=== PATIENT | female | born 1950 | race Caucasian/White ===

== ENCOUNTER → 2018-03-24 09:24 | Outpatient (CLI) | payer MEDICARE, OTHER, SELFPAY ==
--- NOTE | 2018-03-24 09:34 | XR_ITS ---
XR humerus LT CLINICAL INDICATION: ITS.REASON: SWELLING,MASS/LUMP LEFT UPPER LIMB ORDERING PHYSICIAN: Pavel Chapman MD PATIENT AGE: 67 years Comparison: None FINDINGS: No bony or joint abnormality. There is some lobulation of the subcutaneous tissues along the upper arm laterally possibly related to the area of clinical concern. No calcification is evident within this region. IMPRESSION: 1. Negative left humerus. 2. Lobulation of the soft tissues in the upper arm laterally etiology indeterminate incompletely evaluated with plain film. CT or MRI may be of further value if clinically warranted
--- NOTE | 2018-03-24 09:34 | XR_ITS ---
XR foot RT min 3V HISTORY: Right foot pain ORDERING PHYSICIAN: Pavel Chapman MD PATIENT AGE: 67 years COMPARISON: None FINDINGS: No fracture or dislocation. No lytic or blastic change. There is normal mineralization.. The joint spaces are well-preserved. No significant degenerative/arthritic changes. No erosive changes evident. There is mild soft tissue swelling overlying the lateral aspect of the fifth metatarsophalangeal joint IMPRESSION: Soft tissue swelling at the fifth metatarsophalangeal joint laterally otherwise negative
== END ==
PROVIDERS: PCP Family Medicine; Visit Provider Family Medicine
DX: M79.671 Pain in right foot (principal); R22.32 Localized swelling, mass and lump, left upper limb
CPT/HCPCS: 73060; 73630

== ENCOUNTER → 2018-04-21 07:47 | Outpatient (CLI) | payer MEDICARE, OTHER, SELFPAY ==
--- NOTE | 2018-04-21 07:51 | MR_ITS ---
MR shoulder LT wo con HISTORY:Soft tissue mass which is increasing in size ITS.REASON: SOFT TISSUE MASS ORDERING PHYSICIAN: Pavel Chapman MD PATIENT AGE: 67 years Comparison: 03/24/2019 TECHNIQUE: Standard multiplanar multiecho sequences are performed without contrast. FINDINGS: A marker is placed along the palpable soft tissue mass of the left shoulder. There is an oval area of fat signal intensity along the peripheral aspect of the deltoid muscle ( acromial part) consistent with a lipoma. This is well-circumscribed and is just deep to the placed marker. This measures up to 6 cm cephalad to caudad and 2.6 cm transverse. There is acromioclavicular arthropathy with subacromial stenosis with hypertrophic change along the inferior aspect of the acromium with subacromial stenosis. There is increased T2 signal of the supraspinatus tendon consistent with tendinopathy/tendinosis with suspected partial tear along the undersurface of the supraspinatus tendon. The infraspinatus tendon shows some mild increased T2 signal well. Nonspecific increased T2 signal present in the humeral head at the base of the greater tuberosity consistent with subarticular cystic changes which may be seen with rotator cuff disease. Small shoulder joint effusion. The subscapularis and teres minor tendons are intact. No obvious labral tear. Bicipital tendon is in place. IMPRESSION: 1. 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 Acromioclavicular arthropathy with subacromial stenosis and tendinopathy/tendinosis of the supraspinatus and infraspinatus tendons with small shoulder joint effusion and mild osteoarthritic changes of the glenohumeral joint.. 3. Possible partial tear along the undersurface of the supraspinatus tendon
== END ==
PROVIDERS: PCP Family Medicine; Visit Provider Family Medicine
DX: M25.512 Pain in left shoulder (principal); M79.9 Soft tissue disorder, unspecified
CPT/HCPCS: 73221

== ENCOUNTER → 2018-12-08 13:59 | Outpatient (CLI) | payer MEDICARE, OTHER, SELFPAY | PROVIDERS: PCP Family Medicine; Visit Provider Family Medicine | DX: I49.9 Cardiac arrhythmia, unspecified (principal) | CPT/HCPCS: 93225; 93226 ==

== ENCOUNTER → 2018-12-23 14:12 | Outpatient (CLI) | payer MEDICARE, OTHER, SELFPAY ==
--- NOTE | 2018-12-23 14:18 | US_ITS ---
ULTRASOUND THYROID HISTORY: Thyroid enlarged ULTRASOUND THYROID Patient feels like something stuck in throat. PROCEDURE: Multiple sagittal & transverse ultrasound images of the thyroid. COMPARISON. No previous studies for comparison ----- FINDINGS: Enlarged multinodular thyroid bilaterally.. Includes isthmus nodule. Decreased color Doppler flow noted ======== ISTHMUS: Thickened isthmus with large nodule This Large solid mixed density nodule measures 1.85 cm transverse x 1.65 cm AP.. Mainly Solid but with generous scattered cystic areas throughout. ======== RIGHT LOBE: ... 5.6 cm length x 3.6 cm x 3.2 cm. Nodule A: . Mixed density nodule upper pole measuring up to 1.5 cm.. Cystic areas throughout largest measuring up to 1.1 cm. . Nodule B: Nearly 2 cm nodule mainly solid midportion right lobe.. Calcified margin yields shadowing.. Difficult to evaluate posterior aspect of this nodule due to the pronounced shadowing posteriorly. . Nodule C:MixedDensity nodule measuring up to 1.9 x 1.6 cm AP.... Lower pole Multiple cystic areas with some measuring up to 6 mm Nodule D: Prominent solid nodule along posterior aspect mid right lobe. This measures up to 2.45 cm in length x 1.3 cm AP. LEFT LOBE:... 5.2 cm length as 3.2 cm wide to 3.5 cm AP Nodule A: Solid nodule upper left lobe measures 2.3 cm length x 1.85 cm x 1.1 cm. Solid nodule with scattered cystic areas throughout Nodule B: 1.5 cm length mixed density nodule. Multiple cystic areas most evident at its upper pole. *Nodule C:. 2.9 x 2.2 cm cm solid nodule posterior aspect upper pole left lobe. Nodule D: 1.1 cm ill-defined hypoechoic I believe solid nodule medial aspect of mid left lobe . *Nodule E: Elongated 2.7 x 1.4 cm solid nodule anterior mid left lobe Nodule F:... 2.1 cm x 1.7 cm mainly solid nodule. A few tiny cyst within it Nodule G. Solid nodule measuring 1.78 cm nodule at lower pole left lobe ....IMPRESSION....... 1. Enlarged multinodular thyroid/ goiter.. 2. Right lobe nodules. Larger nodules include: ... Nodule D measuring nearly 2.5 cm length midportion right lobe . Nodule B measuring approximately 2 cm with calcified margin yielding fairly intense shadowing 3. Left lobe. More numerous prominent nodules. Most notable include:. Nodule C: up to 2.9 cm length. Posterior left lobe Nodule E: elongated solid nodule 2.7 cm length at anterior midportion left lobe 4.. Isthmus. Large nodule nearly 1.9 cm.
== END ==
PROVIDERS: PCP Family Medicine; Visit Provider Family Medicine
DX: E04.9 Nontoxic goiter, unspecified (principal)
CPT/HCPCS: 76536

== ENCOUNTER → 2019-01-09 14:15 | Outpatient (CLI) | payer MEDICARE, OTHER, SELFPAY ==
[2019-01-09 16:54] LABS: Calcium 9.1 mg/dL (8.5-10.1); Free T4 (Free Thyroxine) 0.74 ng/dl (0.76-1.46); Thyroid Stimulating Hormone 2.05 uIU/ml (0.358-3.740)
[2019-01-11 14:42] LABS: Thyroid Peroxidase Antibodies 10 IU/mL (0-34)
[2019-01-12 18:20] LABS: Calcitonin <2.0 pg/mL (0.0-5.0); Thyroid Stimulating Immunoglob <0.10 IU/L (0.00-0.55)
== END ==
PROVIDERS: Visit Provider Otolaryngology
DX: E04.9 Nontoxic goiter, unspecified (principal)
CPT/HCPCS: 36415; 82308; 82310; 84439; 84443; 84445; 86376

== ENCOUNTER → 2019-01-19 08:43 | Outpatient (CLI) | payer MEDICARE, OTHER, SELFPAY ==
--- NOTE | 2019-01-19 08:47 | FL_ITS ---
EXAM: Barium swallow/esophagram. INDICATION: ITS.REASON: dysphagia ORDERING PHYSICIAN: Davonte Ling MD PATIENT AGE: 68 years COMPARISON: None TECHNIQUE: In the upright position the patient was observed to swallow barium in both the AP and lateral view. The cervical esophagus was examined under fluoroscopy with images obtained. The patient was then placed prone in the right anterior oblique position and was observed to swallow barium with Valsalva technique . FLUOROSCOPY TIME: 58 seconds FINDINGS: There was no evidence of aspiration. There was normal peristalsis. No filling defects or mucosal abnormalities. No masses or strictures. The esophagus is midline without evidence of external compression. There is a moderate-sized hiatal hernia which does not reduce during the course of the exam. In addition, there is a gastric diverticulum projecting off the posterior aspect of the stomach which is involved in the hernia. IMPRESSION: 1. Moderate-sized hiatal hernia. 2. Small posterior gastric diverticulum
--- NOTE | 2019-01-19 08:51 | US_ITS ---
US FNA Thyroid right US FNA Thyroid left HISTORY: Multinodular goiter abnormal thyroid ultrasound ITS.REASON: THYROID GOITER, dominant bilateral nodules ORDERING PHYSICIAN: Davonte Ling MD PATIENT AGE: 68 years COMPARISON: 12/23/2018 TECHNIQUE: Following obtaining informed consent, using aseptic technique and local anesthesia with buffered lidocaine, fine-needle aspiration was performed of the dominant the nodule on the right. 2 passes were made with a 21-gauge needle. Specimen was given to cytology. Cytology: Benign follicular nodule Following this, using sonographic guidance under aseptic conditions and local anesthesia with 1% buffered lidocaine, 21-gauge needle was inserted into the deep dominant solid nodule in the left and specimen given to cytology. Cytology: Benign follicular nodule. No immediate complications. The patient tolerated the procedure well without evidence of immediate complications and left the ultrasound suite in stable condition. IMPRESSION: Uneventful bilateral thyroid FNA of the dominant nodules both showing a cytology of benign follicular nodule.
== END ==
PROVIDERS: PCP Family Medicine; Visit Provider Otolaryngology
DX: R13.10 Dysphagia, unspecified (principal); E04.1 Nontoxic single thyroid nodule
CPT/HCPCS: 10005; 10006; 74220; 76942; 88173; 88305

== ENCOUNTER → 2019-02-10 09:40 | Outpatient (CLI) | payer MEDICARE, OTHER, SELFPAY ==
--- NOTE | 2019-02-10 09:43 | MM_ITS ---
MM Dig screening mamm BI w/CAD ORDERING PHYSICIAN : Pavel Chapman MD PATIENT AGE: 68 years GENDER: Female COMPARISON: March 2014 & October 2006 & Also April 2003t bilateral mammogram. Diagnostic right mammogram from September 2014 INDICATION: Routine screening mammogram. No hormones. No new complaints.. Previous cyst aspiration left breast Family history sister with breast cancer TECHNIQUE: Standard CC and MLO images were obtained. R2 CAD reviewed. FINDINGS: RIGHT BREAST: Bilobed nodule lateral central right breast is shown slight progression in size since. Age of these adjacent ovoid densities now measuring up to nearly 12 mm size. (These previously measured 10 mm mm on 2013 & 2014 mammogram.)- These are most likely benign cysts particularly in this patient with history of such but would suggest the patient return forcc spot view, & full 90 degrees view of right breast followed by right breast ultrasound-particularly with sibling sister history of breast cancer.. She is had left breast cyst on the prior 2002 and 2006 left mammogram studies apparently she is had Aspiration of a left breast in past as per provided history... LEFT BREAST: No new findings at the left breast. It appears stable. Follow-up in one year on left suggested IMPRESSION: ......... 1. RIGHT MAMMOGRAM. Slight interval enlargement of bilobed nodule right breast since previous studies-this is most likely benign bilobed cyst at lateral central breast . However since it has slightly increased in size since previous studies, I would suggest spot views and ultrasound as outlined in body of report 2. Left Mammogram.: No new findings follow-up in one year BI-RADS Category: 0 Need Additional Imaging Evaluation RECOMMENDED FOLLOW-UP: IMM - IMMEDIATE FOLLOW-UP RECOMMENDED Spot views and ultrasound right breast, as described in body of report (A letter has been sent to the patient regarding results of the study.)
== END ==
PROVIDERS: PCP Family Medicine; Visit Provider Family Medicine
DX: Z12.31 Encounter for screening mammogram for malignant neoplasm of breast (principal)
CPT/HCPCS: 77067

== ENCOUNTER → 2019-02-27 11:28 | Outpatient (CLI) | payer MEDICARE, OTHER, SELFPAY ==
--- NOTE | 2019-02-27 11:31 | CA_ITS ---
APPROVED REPORT Bilateral Lower Extremity Venous Study for DVT. Carpenter Apprentice: LISA Indications Lower Extremity Pain: Right Lower Extremity Edema: Bilateral Risk Factors Prior Phlebitis/DVT Past History DVT : Medications Coumadin Vein Imaging CFV (R): compressive, spontaneous, phasic, augmentation FEM (R): compressive, spontaneous, phasic, augmentation POP (R): compressive, spontaneous, phasic, augmentation PTV (R): Compressible GSV (R): Non-Compressible SSV (R): Non-Compressible Peroneals (R):Compressible GAS (R): Compressible Findings No evidence of DVTs in the veins scanned of the right lower extremity. Thrombus is seen in the distal GSV and distal lesser saphenous vein. Conclusion No evidence of DVTs in the veins scanned of the right lower extremity. Thrombus is seen in the distal GSV and distal lesser saphenous vein. Critical Notification Physician Notified Date: 02/27/2019 Time: 11:50 am Physician Name: Dr Kuhn Electronically signed by : Jason Duran MD 02/27/2019 13:06:12
== END ==
PROVIDERS: PCP Family Medicine; Visit Provider Family Medicine
DX: I82.4Z1 Acute embolism and thrombosis of unspecified deep veins of right distal lower extremity (principal)
CPT/HCPCS: 93971

== ENCOUNTER → 2019-03-07 14:16 | Outpatient (CLI) | payer MEDICARE, OTHER, SELFPAY ==
--- NOTE | 2019-03-07 14:18 | MM_ITS ---
PROCEDURE: MM DIG MAMM DX UNILAT RT CAD CLINICAL INDICATION: ABN MAMM The is early COMPARISON: DMSB DIG MAMM-SCREEN MATEUSZ from 03/22/2014 DMDB DIG MAMM-DX MATEUSZ from 09/18/2014 DIG MAMM-SCREEN MATEUSZ from 02/10/2019 US BREAST RT COMPLETE from 03/07/2019 TECHNIQUE: Spot compression views and right breast ultrasound FINDINGS: Right mammogram: There is a 1.9 by 1 cm by lobular benign appearing nodular lesion in the lower outer aspect of the right breast. This has been stable present dating back to 03/22/2014 the may be slightly larger. Right breast ultrasound: In the 8 o'clock region of the right breast there is a 1.8 by 1 cm by lobular cyst corresponding to the mammographic abnormality. Incidental note is made of a small hypoechoic nodule at 12 o'clock. This does contain some low level internal echoes and may represent a complex cyst. . IMPRESSION: Bilobular nodular density in the 8 o'clock region of the right breast corresponds to benign-appearing cyst. There is an indeterminate 6 mm hypoechoic nodule at 12 o'clock which may be due to a complex cyst. Recommend six-month sonographic follow-up BI-RAD Category: 3 Probably Benign Finding Short Term Follow-up FOLLOW-UP: 6M 6Month Follow-up (A letter has been sent to the patient regarding results of the study.) Dictated by: Jason uDran MD 03/10/2019 13:57 Electronically signed by Jason Duran MD in [facility] 03/10/2019 13:57
== END ==
PROVIDERS: PCP Family Medicine; Visit Provider Family Medicine
DX: R92.8 Other abnormal and inconclusive findings on diagnostic imaging of breast (principal)
CPT/HCPCS: 76641; 77065

== ENCOUNTER → 2019-04-26 09:11 | Outpatient (CLI) | payer MEDICARE, OTHER, SELFPAY ==
--- NOTE | 2019-04-26 09:13 | US_ITS ---
PROCEDURE: US THYROID CLINICAL INDICATION: Goiter Follow-up thyroid nodules, multinodular goiter COMPARISON: THY US thyroid from 12/23/2018 FNATHY US FNA Thyroid from 01/19/2019 FINDINGS: 19 mm hypoechoic nodule is present in the isthmus slightly toward the right unchanged with some central cystic changes. The right lobe is 5.2 x 2.9 x 4.4 cm. Multinodular goiter is once again noted. The largest nodule on the right is 19 x 20 mm and is not significantly changed. This nodule is hypoechoic with some calcification. Other smaller mostly cystic nodules are present. The left lobe is 6 x 3.7 x 3.9 cm. Multiple nodules are once again noted. The largest nodule is solid and is 3.6 x 2.1 cm within the lower pole and does not appear significantly changed IMPRESSION: No change multinodular goiter Dictated by: Jason Duran MD 04/26/2019 13:15 Electronically signed by Jason Duran MD in [facility] 04/26/2019 13:15
== END ==
PROVIDERS: PCP Family Medicine; Visit Provider Otolaryngology
DX: E04.9 Nontoxic goiter, unspecified (principal)
CPT/HCPCS: 76536

== ENCOUNTER → 2019-05-29 10:29 | Outpatient (POV) | payer MEDICARE, OTHER, SELFPAY ==
[2019-05-31 07:35] LABS: H. pylori Breath Test Negative (Negative)
== END ==
PROVIDERS: PCP Family Medicine; Visit Provider Nurse Practitioner Family
DX: D50.9 Iron deficiency anemia, unspecified (principal); B96.81 Helicobacter pylori [H. pylori] as the cause of diseases classified elsewhere
CPT/HCPCS: 83013

== ENCOUNTER → 2019-08-28 11:41 | Outpatient (CLI) | payer MEDICARE, OTHER, SELFPAY ==
[2019-08-28 12:07] LABS: Basophils # 0.1 K/mm3 (0-0.2); Basophils % 0.9 % (0.1-2.0); Eosinophils # 0.1 K/mm3 (0.0-0.4); Eosinophils % 1.9 % (0.1-12.0); Hematocrit 42.6 % (37.0-47.0); Hemoglobin 13.8 g/dL (12.2-16.2); Lymphocytes # 1.1 K/mm3 (0.7-4.5); Mean Corpuscular HGB Conc 32.4 g/dL (31.8-35.4); Mean Corpuscular Hemoglobin 29.4 pg (27.0-31.2); Mean Corpuscular Volume 90.5 fl (81-99); Monocytes # 0.3 K/mm3 (0.1-1.0); Monocytes % 5.8 % (1.7-9.3); Neutrophils # 4.3 K/mm3 (1.8-7.8); Neutrophils % 72.4 % (37.0-80.0); Platelet Count 258 K/mm3 (142-424); Red Blood Count 4.71 M/mm3 (4.20-5.40); Red Cell Distribution Width 13.4 % (11.5-17.5); White Blood Count 5.9 K/mm3 (4.8-10.8)
[2019-08-28 16:19] LABS: Ferritin 12.4 ng/ml (11.1-264)
[2019-08-29 10:19] LABS: Iron 105 ug/dL (27-139); UIBC 244 ug/dL (118-369)
[2019-08-29 11:51] LABS: Iron Saturation 30 % (15-55)
== END ==
PROVIDERS: Visit Provider Internal Medicine Gastroenterology
DX: D50.9 Iron deficiency anemia, unspecified (principal)
CPT/HCPCS: 36415; 82728; 83540; 83550; 85025

== ENCOUNTER → 2019-09-04 10:14 | Outpatient (POV) | payer MEDICARE, OTHER, SELFPAY | PROVIDERS: PCP Nurse Practitioner Family; Visit Provider Nurse Practitioner Family | DX: Z00.00 Encounter for general adult medical examination without abnormal findings (principal) ==

== ENCOUNTER → 2019-09-07 12:45 | Outpatient (CLI) | payer MEDICARE, OTHER, SELFPAY ==
--- NOTE | 2019-09-07 12:47 | MM_ITS ---
PROCEDURE: MM DIG MAMM DX UNILAT RT CAD Digital Breast Tomosynthesis Included CLINICAL INDICATION: 6 MO FU Follow-up abnormal mammogram and ultrasound COMPARISON: DMDB DIG MAMM-DX MATEUSZ from 09/18/2014 DIG MAMM-SCREEN MATEUSZ from 02/10/2019 US BREAST RT COMPLETE from 03/07/2019 MM DIG MAMM DX UNILAT RT CAD from 03/07/2019 US BREAST RT COMPLETE from 09/07/2019 TECHNIQUE: Standard CC and MLO images and 3D Tomosynthesis was obtained. R2 CAD reviewed. FINDINGS: There is average fibroglandular tissue. A bilobular 2 cm nodule is once again noted in the lower outer aspect of the right breast corresponding to previously noted cystic abnormality not significantly changed. Right breast ultrasound: Is a 5 mm hypoechoic nodule at 12 o'clock not significantly changed benign-appearing. A lobulated cyst is present at 8 o'clock measuring 2 x 0.5 cm not significantly changed. IMPRESSION: Benign findings. No change with no evidence of malignancy. Recommend resume screening mammogram in 6 months of both sides BI-RAD Category: 2 Benign Finding(s) FOLLOW-UP: 6M 6Month Follow-up (A letter has been sent to the patient regarding results of the study.) Dictated by: Jasno Duran MD 09/08/2019 12:58 Electronically signed by Jason Duran MD in [facility] 09/08/2019 12:58
== END ==
PROVIDERS: PCP Family Medicine; Visit Provider Family Medicine
DX: R92.8 Other abnormal and inconclusive findings on diagnostic imaging of breast (principal); Z09 Encounter for follow-up examination after completed treatment for conditions other than malignant neoplasm
CPT/HCPCS: 76641; 77061; 77065; G0279

== ENCOUNTER 2019-10-15 12:38 | Emergency (ER) | payer MEDICARE, OTHER, SELFPAY ==
[2019-10-15 12:39] VITALS: BP 142/72; PULSE 55; RESP 16; O2SAT 98; BMI 28.1
[2019-10-15 12:41] VITALS: BMI 28.1
--- NOTE | 2019-10-15 12:41 | XR_ITS ---
PROCEDURE: XR CHEST PORTABLE CLINICAL HISTORY: cp COMPARISON: CXR CHEST(2 VIEWS-NOT PORTABLE) from 07/20/2013 FINDINGS: The cardiomediastinal silhouette and pulmonary vascularity are within normal limits. Again noted is a large hiatal hernia with air-fluid level seen through the cardiac shadow. The lungs are clear without infiltrates, suspicious nodules, or pleural effusions. No acute bony abnormalities. IMPRESSION: No acute findings. Dictated by: Dr. Everton Damian MD 10/15/2019 13:[address] Everton Damian MD in [facility] 10/15/2019 13:34
--- NOTE | 2019-10-15 12:41 | CT_ITS ---
PROCEDURE: CT ANGIO CHEST CLINCIAL INDICATION: chest pain, hx pe COMPARISON: US THYROID from 04/26/2019 TECHNIQUE: IV Contrast: 70ML OPTIRAY 350 Axial images obtained with sagittal and coronal reformats. All CT scans at the facility use one or more dose reduction, viz: automated exposure control, ma/kV adjustment per patient size (including targeted exams where dose is matched to indication, i.e. head), or iterative reconstruction technique. FINDINGS: HEART AND MEDIASTINAL STRUCTURES: Cardiac size is normal. There is a large hiatal hernia with possibly 1/3 to 1/2 of the stomach above the diaphragmatic hiatus. There is excellent vascular opacification and there is no CT evidence of pulmonary emboli. LUNGS AND PLEURAL SPACES: Unremarkable. There is no pneumonic infiltrate seen and there is no pleural fluid. BONY STRUCTURES: There are mild multilevel degenerate changes of the thoracic spine. UPPER ABDOMEN: Unremarkable. ADDITIONAL FINDINGS: There is an enlarged multinodular thyroid goiter there is prominent calcification of a nodule in the right lobe of the thyroid. Suggest consideration of ENT consultation for possible biopsy of the calcified right thyroid nodule IMPRESSION: No evidence of pulmonary embolism, large hiatal hernia along with abnormally enlarged multinodular thyroid goiter Dictated by: Dr. Everton Damian MD 10/15/2019 13:[address] Everton Damian MD in [facility] 10/15/2019 13:43
[2019-10-15 12:51] LABS: Basophils # 0.1 K/mm3 (0-0.2); Basophils % 0.6 % (0.1-2.0); Eosinophils # 0.2 K/mm3 (0.0-0.4); Eosinophils % 1.7 % (0.1-12.0); Hematocrit 43.4 % (37.0-47.0); Hemoglobin 13.9 g/dL (12.2-16.2); Lymphocytes # 2.8 K/mm3 (0.7-4.5); Lymphocytes % 31.5 % (10-50); Mean Corpuscular Hemoglobin 29.6 pg (27.0-31.2); Mean Corpuscular Volume 92.3 fl (81-99); Mean Platelet Volume 8.1 fl (7.4-10.4); Monocytes # 0.5 K/mm3 (0.1-1.0); Monocytes % 5.3 % (1.7-9.3); Neutrophils # 5.5 K/mm3 (1.8-7.8); Neutrophils % 60.9 % (37.0-80.0); Platelet Count 289 K/mm3 (142-424); Red Cell Distribution Width 13.2 % (11.5-17.5)
[2019-10-15 12:56] LABS: Chloride 100 mmol/L (98-107); Sodium 137 mmol/L (136-145)
[2019-10-15 12:59] LABS: Alanine Aminotransferase 36 U/L (12-78); Albumin Level 4.1 g/dl (3.5-5.0); Alkaline Phosphatase 126 U/L (38-126); Aspartate Amino Transferase 97 U/L (14-36); Bilirubin,Indirect 0.4 mg/dL (0.0-0.9); Bilirubin,Total 0.4 mg/dl (0.2-1.3); Bilirubin,Unconjugated 0.4 mg/dL (0.0-1.1); Blood Urea Nitrogen 16 mg/dl (7-17); Calcium 9.4 mg/dl (8.4-10.2); Carbon Dioxide 31 mmol/L (22.0-30.0); Creatinine Clearance Estimated 67 mL/min (50-200); Estimated Glomerular Filt Rate 83 ml/min (>60); GFR (African American) 100 ML/MIN (>60); Glucose 144 mg/dl (74-100); Total Protein,Serum 6.7 g/dl (6.3-8.2)
--- NOTE | 2019-10-15 13:00 | CT_ITS ---
PROCEDURE: CT ABDOMEN PELVIS W CON CLINICAL INDICATION: RUQ pain, hx of hiatal hernia COMPARISON: No exams were available for comparison TECHNIQUE: IV Contrast: 75ML OPTIRAY 350 Oral Contrast none given Axial images obtained with sagittal and coronal reformats. All CT scans at the facility use one or more dose reduction, viz: automated exposure control, ma/kV adjustment per patient size (including targeted exams where dose is matched to indication, i.e. head), or iterative reconstruction technique. FINDINGS: Lower thorax: No acute finding ABDOMEN: Liver: No masses or biliary dilatation. Gallbladder: Nondistended. No radio opaque stones. Pancreas: No masses or peripancreatic fluid collections. The pancreatic duct is borderline dilated, is there history of previous pancreatitis? Spleen: unremarkable Adrenals: unremarkable Kidneys/ureters: The kidneys are normal size and show symmetrical function. There is a benign-appearing cortical cyst lower pole right kidney measuring 2.1 x 1 point 8 cm in diameter. There is no obstructive uropathy of either kidney. ABDOMEN & PELVIS: Stomach bowel: There is a large hiatal hernia with approximately 1/2 of the stomach above the diaphragmatic hiatus. The small bowel appears normal. There is moderate stool and gas seen in the ascending and transverse colon, the descending and sigmoid colon are decompressed. Peritoneum: No abnormal fluid collections. No obvious inflammatory changes. No free air. There is a small umbilical hernia containing fat only. Lymph nodes: No enlarged lymph nodes apparent. Vasculature: There is minimal scattered arteriosclerotic calcification of the abdominal aorta. Bones: No acute fracture PELVIS: Reproductive: The uterus is normal size with a possible fibroid right side fundus of the uterus Bladder: The urinary bladder is moderately distended with urine and appears normal. There is no free fluid in the pelvis. Appendix: Not definitely identified but there are no pericecal inflammatory changes. IMPRESSION: Large hiatal hernia, no acute pathology identified in the abdomen or pelvis Dictated by: Dr. Everton Damian MD 10/15/2019 13:[address] Everton Damian MD in [facility] 10/15/2019 13:53
--- NOTE | 2019-10-15 13:00 | HMH.EDGENADL ---
ED Disposition Clinical Impression: Hiatal hernia, Atypical chest pain Disposition: Home, Self-Care Condition on Discharge: Fair Instructions: DI for Atypical Chest Pain, DI for Hiatal Hernia Additional Instructions: You have been evaluated for atypical chest pain, this is likely due to your hiatal hernia. Please eat small meals. Avoid drinking liquids that are very hot or very cold as this may cause spasm. Continue taking a proton pump inhibitor. You may take Maalox for symptoms. Follow-up with general surgery, as you may need an elective hernia repair. You also have a calcified thyroid nodule, you should have a biopsy. Follow-up with your primary care doctor. And to the emergency department for new or worsening symptoms, chest pain, shortness of breath, vomiting Prescriptions: Omeprazole [Omeprazole 20mg Tab] 20 mg PO DAILY #30 tab Prescription Printed Referrals: Provider,Referral, [Primary Care Provider] - Time of Disposition: 15:05 - Critical Care Critical Care Time: No Attestation: On 10/15/19, the high probability of a clinically significant, sudden or life threatening deterioration of the following system(s) required my full and direct attention, intervention and personal management. The time I documented below is in addition to time spent performing reported procedures but includes the following listed in this critical care notation. Medical Decision Making - [place] Inquiry Pt receiving controlled substance: No Vital Signs: 10/15/19 12:39 10/15/19 15:44 Temperature 98 F Temperature Source Oral Pulse Rate 77 Pulse Rate [Left Radial] 55 L Respiratory Rate 16 16 Blood Pressure 112/74 Blood Pressure [Right Arm] 142/72 H Blood Pressure Mean [Right Arm] 95 Blood Pressure Position Sitting Blood Pressure Position [Right Arm] Sitting 02 Sat by Pulse Oximetry 98 Oxygen Delivery Method Room Air Room Air - Lab Data Lab Results 10/15/19 12:40: WBC 9.0, RBC 4.70, Hgb 13.9, Hct 43.4, MCV 92.3, MCH 29.6, MCHC 32.0, RDW 13.2, Plt Count 289, MPV 8.1, Neut % (Auto) 60.9, Lymph % (Auto) 31.5, Mccracken % (Auto) 5.3, Eos % (Auto) 1.7, Baso % (Auto) 0.6, Neut # (Auto) 5.5, Lymph # (Auto) 2.8, Mccracken # (Auto) 0.5, Eos # (Auto) 0.2, Baso # (Auto) 0.1 10/15/19 12:40: PT 33.1 H, INR 3.37 H, APTT 37.1 H 10/15/19 12:40: Sodium 137, Potassium 4.0, Chloride 100, Carbon Dioxide 31 H, Anion Gap 10.0, BUN 16, Creatinine 0.70, Estimated Creat Clear 67, Estimated GFR 83, Est GFR ( Amer) 100, Glucose 144 H, Calcium 9.4, Total Bilirubin 0.4, Direct Bilirubin 0.0, Conjugated Bilirubin 0.0, Indirect Bilirubin 0.4, Unconjugated Bilirubin 0.4, AST 97 H, ALT 36, Alkaline Phosphatase 126, Troponin I < 0.01, Total Protein 6.7, Albumin 4.1 10/15/19 15:15: Troponin I < 0.01 Result diagrams: 10/15/19 12:40 10/15/19 12:40 Orders (Tests/Meds): ED MEDICATIONS Discontinued Medications Generic Name Dose Route Start Last Admin Trade Name Freq PRN Reason Stop Dose Admin Al Hydrox/Mg Hydrox/Simethicone 30 ml 10/15/19 15:06 10/15/19 15:13 Maalox 30ml Udc PO 10/15/19 15:07 30 ml ONCE ONE Administration Iohexol 70 ml 10/15/19 13:26 10/15/19 13:27 Rad-Omnipaque 350 100ml Bottle IV 10/15/19 13:27 70 ml ONCE ONE Administration Sodium Chloride 50 ml 10/15/19 13:26 10/15/19 13:27 Rad-Ns 50ml Vial IV 10/15/19 13:27 50 ml ONCE ONE Administration Sodium Chloride 10 ml 10/15/19 13:26 10/15/19 13:27 Rad-Saline Flush 10ml Syringe IV 10/15/19 13:27 10 ml ONCE ONE Administration ORDERS Category Date Time Status Troponin I Q3H Lab 10/15/19 18:45 Ordered EKG Request [ECG Request by /Thierno] Stat Y 10/15/19 15:06 Ordered - CT Data CT Scan: Abdomen, Chest Time Received: 15:02 Findings Narrative: CT ABD IMPRESSION: Large hiatal hernia, no acute pathology identified in the abdomen or pelvis CTA FINDINGS: HEART AND MEDIASTINAL STRUCTURES: Cardiac size is hannah
[2019-10-15 13:01] LABS: Activated Partial Thrombo Time 37.1 seconds (23.6-34.0); INR 3.37 (0.9-1.1); Prothrombin Time 33.1 seconds (9.4-11.8)
[2019-10-15 13:16] LABS: Troponin I < 0.01 ng/ml (0.00-0.034)
--- NOTE | 2019-10-15 15:06 | ECG_ITS ---
APPROVED REPORT Exam: Resting ECG HR:53 bpm ECG Measurements Heart Rate 53 AXES WI 194 P 37 QRSd 76 QRS 11 QT 452 T 28 QTc 424 <Conclusion> Sinus bradycardia Otherwise normal ECG Electronically signed by : Huang Hill, 10/16/2019 14:00:07
[2019-10-15 15:37] LABS: Troponin I < 0.01 ng/ml (0.00-0.034)
[2019-10-15 15:44] VITALS: BP 112/74; PULSE 77; RESP 16; TEMP 36.6; O2SAT 98
== END 2019-10-15 15:45 | disposition home or self-care (01) ==
PROVIDERS: Emergency Provider Emergency Medicine
DX: R07.89 Other chest pain (principal); K44.9 Diaphragmatic hernia without obstruction or gangrene; E78.5 Hyperlipidemia, unspecified; I10 Essential (primary) hypertension; Z79.899 Other long term (current) drug therapy
CPT/HCPCS: 71045; 71275; 74177; 80048; 80076; 84484; 85025; 85610; 85730; 93005; 99283; Q9967

== ENCOUNTER → 2020-07-15 14:24 | Outpatient (POV) | payer MEDICARE, OTHER, SELFPAY | PROVIDERS: Visit Provider Nurse Practitioner Family | DX: Z00.00 Encounter for general adult medical examination without abnormal findings (principal) ==

== ENCOUNTER → 2021-09-08 13:25 | Outpatient (CLI) | payer MEDICARE, OTHER, SELFPAY ==
--- NOTE | 2021-09-08 14:03 | US_ITS ---
FINAL REPORT CLINICAL HISTORY: 20 WEEK EXAM COMPARISON: April 26, 2019 FINDINGS: THYROID ULTRASOUND Sonographic images of the thyroid was obtained. The right lobe of the thyroid measures 2.9 x 4.6 x 4.3 cm. The left lobe of the thyroid measures 5.6 x 3.5 x 3.1 cm. The isthmus measures 7 mm which is somewhat thickened. There are multiple bilateral nodules. Several have been chosen for measurement. Right mid lobe nodule measuring 2 x 1.3 by 1 cm is cystic and solid, isoechoic, TI-RADS 3. Right lower pole nodule measuring 2.6 x 2.1 x 1.2 cm previously measured 2.3 x 1.7 x 2.5 cm. It is cystic and solid, isoechoic, TI-RADS 3. Left lower pole nodule measuring 3.2 x 2.1 x 1.9 cm a cystic and solid, TI-RADS 3. Left upper pole nodule measuring 2.5 x 1.3 x 2.4 cm is cystic and solid, isoechoic, TI-RADS 3. Two nodules are noted in the isthmus. Because of the multitude of nodules, a direct comparison is difficult but as can be best determined these appear stable. IMPRESSION: Stable appearance of the thyroid, consistent with multinodular goiter. Reviewed, Interpreted and Dictated by Will Gonzales III, MD Transcribed by Shannon Ontiveros Authenticated by Will Gonzales III, MD on 09/08/2021 03:51:00 PM [facility]
== END ==
PROVIDERS: PCP Nurse Practitioner Obstetrics & Gynecology; Visit Provider Family Medicine
DX: E04.1 Nontoxic single thyroid nodule (principal)
CPT/HCPCS: 76536

== ENCOUNTER → 2022-01-10 09:54 | Outpatient (CLI) | payer MEDICARE, OTHER, SELFPAY ==
[2022-01-10 11:16] LABS: Blood Urea Nitrogen 16 mg/dl (7-17); Estimated Glomerular Filt Rate 82 ml/min (>60); GFR (African American) 100 ML/MIN (>60)
== END ==
PROVIDERS: PCP Family Medicine; Visit Provider Family Medicine
DX: R10.9 Unspecified abdominal pain (principal)
CPT/HCPCS: 36415; 82565; 84520

== ENCOUNTER → 2022-01-14 08:36 | Outpatient (CLI) | payer MEDICARE, OTHER, SELFPAY ==
--- NOTE | 2022-01-14 08:41 | CT_ITS ---
FINAL REPORT CLINICAL HISTORY: ABDOMINAL PAIN COMPARISON: October 15, 2019 FINDINGS: CT ABDOMEN W/CONTRAST PROCEDURE: Axial images were obtained through the abdomen by computed tomography after administration of IV contrast. Oral contrast was administered. This study was performed with techniques to keep radiation doses as low as reasonably achievable (ALARA). Individualized dose reduction techniques using automated exposure control or adjustment of mA and/or kV according to the patient's size were employed. ABDOMEN: There are chronic changes are seen at the lung bases. The heart is normal in size. There is a right breast nodule measuring up to 1.2 cm in greatest dimension, well seen on image 17 of series 3. Majority of the stomach is intrathoracic. There is mild gallbladder wall thickening of uncertain significance, it may be due to chronic cholecystitis. There is mild diffuse fatty infiltration of the liver. The spleen is normal. No adrenal masses are present. The pancreas is normal. The left kidney is normal. There is a benign-appearing cyst is seen in the right kidney measuring 2.2 cm. There is a more complex structure identified in the posterior right kidney measuring 1.0 cm in diameter which may be slightly larger than on the previous exam. This does not appear to represent a simple cyst and is seen on image 39 of series 3. The aorta is normal in caliber. There is no free fluid or adenopathy. IMPRESSION: Intrathoracic stomach. Abnormal appearing gallbladder concerning for chronic cholecystitis. Recommend gallbladder ultrasound. 1.0 cm complex lesion in the posterior right kidney, indeterminate. Dedicated pre and post infusion CT would be of value to better characterize. 1.2 cm right breast nodule. Recommend physical exam and mammography. Reviewed, Interpreted and Dictated by Kt Luis MD Transcribed by Shannon Ontiveros Authenticated and [facility]
== END ==
PROVIDERS: PCP Family Medicine; Visit Provider Family Medicine
DX: R10.11 Right upper quadrant pain (principal)
CPT/HCPCS: 74160; Q9967

== ENCOUNTER 2023-02-24 13:43 | Outpatient (CLI) | payer MEDICARE, OTHER, SELFPAY ==
[2023-02-24 14:45] LABS: PHA INR Fingerstick 1.2 (0.9-1.1)
== END 2023-02-24 14:47 ==
LOC: ACC 13:44
PROVIDERS: PCP Nurse Practitioner Family; Visit Provider Nurse Practitioner Family
DX: Z79.01 Long term (current) use of anticoagulants (principal); Z51.81 Encounter for therapeutic drug level monitoring
CPT/HCPCS: 85610; 99211; G0463

== ENCOUNTER 2023-03-05 14:12 | Outpatient (CLI) | payer MEDICARE, OTHER, SELFPAY ==
[2023-03-05 14:50] LABS: PHA INR Fingerstick 3.4 (0.9-1.1)
== END 2023-03-05 14:52 ==
LOC: ACC 14:13
PROVIDERS: PCP Nurse Practitioner Family; Visit Provider Nurse Practitioner Family
DX: Z79.01 Long term (current) use of anticoagulants (principal); Z51.81 Encounter for therapeutic drug level monitoring
CPT/HCPCS: 85610; 99211; G0463

== ENCOUNTER 2023-03-12 14:16 | Outpatient (CLI) | payer MEDICARE, OTHER, SELFPAY ==
[2023-03-12 15:16] LABS: PHA INR Fingerstick 3.6 (0.9-1.1)
== END 2023-03-12 16:02 ==
LOC: ACC 14:17
PROVIDERS: PCP Nurse Practitioner Family; Visit Provider Nurse Practitioner Family
DX: Z79.01 Long term (current) use of anticoagulants (principal); Z51.81 Encounter for therapeutic drug level monitoring
CPT/HCPCS: 85610; 99211; G0463

== ENCOUNTER 2023-03-26 15:03 | Outpatient (CLI) | payer MEDICARE, OTHER, SELFPAY ==
[2023-03-26 16:09] LABS: PHA INR Fingerstick 2.7 (0.9-1.1)
== END 2023-03-26 16:11 ==
LOC: ACC 15:04
PROVIDERS: PCP Nurse Practitioner Family; Visit Provider Nurse Practitioner Family
DX: Z79.01 Long term (current) use of anticoagulants (principal); Z51.81 Encounter for therapeutic drug level monitoring
CPT/HCPCS: 85610; 99211; G0463

== ENCOUNTER 2023-04-30 14:14 | Outpatient (CLI) | payer MEDICARE, OTHER, SELFPAY ==
--- OUTSIDE RECORDS SUMMARY | 2023-04-30 14:18 | XMS_ITS | Patient Health Record ---
Author Name Unknown Organization [facility] Address [address] [place] [address] Care Team Providers Care Fire Behavior Analyst Name Role Phone Svetlana Peter Primary Care Provider [phone] SVETLANA PETER Unavailable Unavaila ble ALLERGIES No Known Allergies RESULTS Component Value Reference Range Notes LIPID PANEL, STANDARD (7600) Reviewed date:02/25/2023 01:40:31 PM Interpretation: Performing Lab:[facility], [facility] [id number], [id number] Kuldeep Tejeda Notes/Report: NON-FASTING; NON-FASTING; NON-FASTING; NON-FASTING; NON-FAST FASTING:YES FASTING: YES CHOLESTEROL, TOTAL 185 <200 mg/dL HDL CHOLESTEROL 66 > OR = 50 mg/dL TRIGLYCERIDES 238 <150 mg/dL If a non-fasting specimen was collected, consider repeat triglyceride testing on a fasting specimen if clinically indicated. Carlos et al. J. of Clin. Lipidol. 2015;9:129-169. LDL-CHOLESTEROL 86 Reference range: <100 Desirable range <100 mg/dL for primary prevention; <70 mg/dL for patients with CHD or diabetic patients with > or = 2 CHD risk factors. LDL-C is now calculated using the Barrington-Mark calculation, which is a validated novel method providing better accuracy than the Friedewald equation in the estimation of LDL-C. Barrington QURESHI et al. BAL. 2013;310(19): 9432-8441 (http://education.CompBlue.[employer] Systems/faq/TUC804) CHOL/HDLC RATIO 2.8 <5.0 (calc) NON HDL CHOLESTEROL 119 <130 mg/dL (calc) For patients with diabetes plus 1 major ASCVD risk factor, treating to a non-HDL-C goal of <100 mg/dL (LDL-C of <70 mg/dL) is considered a therapeutic
[2023-04-30 15:24] LABS: PHA INR Fingerstick 2.8 (0.9-1.1)
== END 2023-04-30 15:30 ==
LOC: ACC 14:15
PROVIDERS: PCP Nurse Practitioner Family; Visit Provider Nurse Practitioner Family
DX: Z79.01 Long term (current) use of anticoagulants (principal); Z51.81 Encounter for therapeutic drug level monitoring
CPT/HCPCS: 85610; 99211; G0463

== ENCOUNTER → 2023-05-11 09:22 | Outpatient (CLI) | payer MEDICARE, OTHER, SELFPAY ==
--- NOTE | 2023-05-11 09:27 | XR_ITS ---
FINAL REPORT CLINICAL HISTORY: ACUTE PAIN FINDINGS: AP, lateral and oblique views of the right knee were obtained. There is no prior exam for comparison. There is no acute osseous abnormality of the right knee. There is mild patellofemoral degenerative joint disease. The soft tissues are normal. There is no joint effusion. IMPRESSION: No acute osseous abnormality of the right knee. Reviewed, Interpreted and Dictated by Justina Bustamante MD Transcribed by Preet Mario Authenticated and [facility]
== END ==
PROVIDERS: PCP Nurse Practitioner Family; Visit Provider Nurse Practitioner Family
DX: M25.561 Pain in right knee (principal)
CPT/HCPCS: 73562

== ENCOUNTER 2023-06-11 14:17 | Outpatient (CLI) | payer MEDICARE, OTHER, SELFPAY ==
[2023-06-11 15:50] LABS: PHA INR Fingerstick 2.9 (0.9-1.1)
== END 2023-06-11 16:10 ==
LOC: ACC 14:19
PROVIDERS: PCP Nurse Practitioner Family; Visit Provider Nurse Practitioner Family
DX: Z79.01 Long term (current) use of anticoagulants (principal); Z51.81 Encounter for therapeutic drug level monitoring
CPT/HCPCS: 85610; 99211; G0463

== ENCOUNTER 2023-12-21 10:23 | Outpatient (CLI) | payer MEDICARE, OTHER, SELFPAY ==
[2023-12-21 13:15] LABS: PHA INR Fingerstick 2.9 (0.9-1.1)
== END 2023-12-21 13:17 ==
PROVIDERS: PCP Nurse Practitioner Family; Visit Provider Nurse Practitioner Family
DX: Z79.01 Long term (current) use of anticoagulants (principal)
CPT/HCPCS: 85610; 99211; G0463

== ENCOUNTER 2024-01-10 10:17 | Outpatient (CLI) | payer MEDICARE, OTHER, SELFPAY ==
--- NOTE | 2024-01-10 | CA_ITS ---
APPROVED REPORT Exam: Pharmacologic Technologist: Jennifer Montanez Ht: 5 ft 7 in Wt: 169 lbs BSA: 1.88 m2 HR: 63 bpm BP: 152/81 mmHg Indications: Fatigue, dyspnea on exertion, chest pain Medical History Medications: Warfarin,,,,, Atorvastatin,,,,, Estradiol,,,,, MeLOXICAM,,,,, DilTiazem,,,,, MethIMAZOLE,,,,, Multivitamin,,,,, Stress Test Details Test: LEXISCAN HR Resting HR: 68 bpm Max Heart Rate (APMHR): 146 bpm Max HR Achieved: 99 bpm Target HR (85% APMHR): 124 bpm % of APMHR: 68 Recovery HR: 83 bpm BP Resting BP: 152.0/81.0 mmHg Max BP: 174.0/83.0 mmHg Recovery BP: 168.0/84.0 mmHg ECG Resting ECG: Sinus rhythm Stress ECG: No significant ST changes Arrhythmia: None Clinical Exercise duration: 04:00 min Highest Stage Achieved: Stress ECG Conclusion Symptoms: Shortness of air. Chest tightness/pressure. Arrhythmias/Ectopy: None ST-T Changes: New T wave changes in inferior leads Conclusion: Abnormal Lexiscan stress test. New T wave changes in inferior leads are noted after Lexiscan administration. Myoview images reported separately. Test Summary REST . . . . . . . Resting REST 13:07 . . 68 . 152/ 81 . . Stage 1 . . . . . . . Myoview Injected Stage 1 01:00 . . 95 . . . . Stage 2 . . . . . . . chest pressure Stage 2 01:00 . . 97 . 130/ 80 . . Stage 3 01:00 . . 94 . 148/ 80 . . Stage 4 01:00 . . 85 . 143/ 79 . Stop exercise at 04:00 RECOVERY 01:00 . . 82 . 149/ 80 . . RECOVERY 02:00 . . 81 . 149/ 80 . . RECOVERY 03:00 . . 83 . 174/ 83 . . RECOVERY 04:00 . . 87 . 168/ 84 . . RECOVERY 04:47 . . 85 . 168/ 84 . . Electronically signed by : Indy Anguiano MD 01/11/2024 12:47:00
--- NOTE | 2024-01-10 10:27 | CA_ITS ---
APPROVED REPORT EXAM: Comprehensive 2D, Doppler, and color-flow Echocardiogram Pediatric Speech Language Pathologist: Dianne Ortiz, RT(R) Ht: 5 ft 7 in Wt: 169lbs BSA: 1.88 BP: 156/72 mmHg Indications: Fatigue, SOB, CP, CARTY, pre op assessment Echo Enhancing Agent Indication: Rule out Shunt Agent(s) / Amount(s) Used: Agitated Saline 15 cc 2D Dimensions LVEF (Sarah's) 66.60 % F: 54 - 74 LV Volume 62.30 mL F: 46 - 106 LV Volume Index 33.1 mL/m2 F: 29 - 61 LA Volume 32.10 mL LA Volume Index 17.07 mL/m2 (M/F) 16-34 EF AP4 68.10 % EF AP2 64.2 % EF BP 66.6 % GL Strain -20.6 % M-Mode Dimensions RVDd 2.05 cm (0.9-2.6) LA Diam 4.44 cm (1.9-4.0) LVDd 4.99 cm (3.5-5.7) LVDs 3.62 cm (3.5-5.7) IVSd 0.68 cm (0.6-1.1) PWd 0.89 cm (0.6-1.1) EF (Teich) 53.10% FS 27.50% EDV (Teich) 117.70 mL ESV (Teich) 55.20 mL LV Diastology E Decel Time 323 (160-240 msec) E/A Ratio 0.78 Aortic Valve AoV Peak Santi. 170.0 (50-130 cm/s) AO Peak GR. 11.50 mmHg AO Mean GR. 5.60 (<5 mmHg) AO VTI 34.8 (18-25 cm) Mitral Valve MV A Velocity 89.0 (40-130 cm/s) E/A Ratio 0.78 Tricuspid Valve TR P. Velocity 237.00 cm/s RAP Estimate 15.00 mmHg RVSP 37.40 mmHg Left Ventricle The left ventricle is normal size. The left ventricular systolic function is normal. The left ventricular ejection fraction is within the normal range. Proximal septal thickening is noted. There is normal LV segmental wall motion. Transmitral Doppler flow pattern suggests impaired LV relaxation. LVEF is 55%. Right Ventricle The right ventricle is normal size. The right ventricular systolic function is normal. Atria The left atrium size is normal. The right atrium size is normal. The interatrial septum appears hypermobile and aneurysmal. There is no Doppler evidence of interatrial shunt. Agitated saline administration demonstrates no evidence of interatrial shunt. Aortic Valve The aortic valve is mildly thickened. There is no aortic valvular stenosis. Trace aortic regurgitation. Mitral Valve The mitral valve is normal in structure. No evidence of mitral valve stenosis. Trace mitral regurgitation. Tricuspid Valve The tricuspid valve leaflets are thin and pliable. Mild tricuspid regurgitation. RVSP is 20-25 mmHg. Pulmonic Valve The pulmonary valve is normal in structure. Trace pulmonic regurgitation. Great Vessels The aortic root is normal in size. The ascending aorta is not well-visualized. IVC is normal in size and collapses >50% with inspiration. Pericardium There is no pericardial effusion. Other Information Study Quality: Fair Conclusion Normal biventricular systolic function. Mild TR. The interatrial septum appears hypermobile and aneurysmal. There is no Doppler evidence of interatrial shunt. Agitated saline administration (bubble study) demonstrates no evidence of interatrial shunt. Electronically signed by : Indy Anguiano MD 01/12/2024 22:40:51
--- NOTE | 2024-01-10 11:28 | NM_ITS ---
APPROVED REPORT Exam: Nuclear Stress Test Indication: HTN, DM, HYPERLIPIDEMIA, FM HX, C.P,, SOB, FATIGUE Patient Location: Outpatient Stress Tech: Jennifer Montanez [place] Tech:Guillermina Flores, ARRT, RT (R)(N) Ht: 5 ft 7 in Wt: 169 lbs Bra Size: 38DD HR: 68 bpm BP: 152/81 mmHg BSA: 1.88 m2 Rhythm: NSR TID: 1.14 BMI: 26.4 History: HTN, DM, HYPERLIPIDEMIA, FM HX, C.P,, SOB, FATIGUE Procedure: Patient received 0.4 mg of intravenous Lexiscan, resting heart rate 68 bpm, resting blood pressure 152/81 mmHg, with Lexiscan maximum heart rate achieved was 99 bpm which is % of the maximum predicted heart rate and blood pressure was 174/83 mmHg. With Lexiscan, patient denied any complaint of chest pain. Cardiac Stress and Resting SPECT Images: Cardiac Stress and Resting SPECT images were obtained using technetium 99m Myoview 30.6 mCi stress and 10.71 mCi at rest. Raw images demonstrate significant diaphragmatic overlap with the inferior borders of the LV wall. This may affect the diagnostic interpretation of the study findings. Resting and stress imaging in supine positions demonstrate a medium sized, moderate, fixed perfusion defect in the inferior LV wall. This is no longer visualized with prone stress imaging. Findings are suggestive of diaphragmatic attenuation. Gated imaging demonstrates normal global and regional LV systolic function. LVEF is calculated at 64%. Conclusion: Diaphragmatic attenuation is present. No definite evidence of fixed or reversible perfusion defects. Gated imaging demonstrates normal global and regional LV systolic function. LVEF is calculated at 64%. Of note, the patient had EKG changes suggestive of ischemia after Lexiscan administration. In the setting of technically difficult normal nuclear imaging with presence of abnormal stress EKG, further evaluation with alternative imaging modality (i.e. CCTA) is suggested, if clinical suspicion for coronary ischemia remains high. Electronically signed by : Indy Anguiano MD 01/11/2024 12:50:41
[2024-01-10] MEDS: REGADENOSON 0.4MG/5ML SYRINGE 0.4 MG IV (14:11)
[2024-01-10] MEDS: ISOTOPE MYOVIEW (PER STUDY) 1 DOSE IV (14:11)
[2024-01-10] MEDS: SODIUM CHLORIDE 0.9% 10ML SYR (RAD ONLY) 10 ML IV ×2 (14:11)
== END 2024-01-10 23:59 | disposition home or self-care (01) ==
LOC: RT 10:17
PROVIDERS: PCP Nurse Practitioner Family; Visit Provider Nurse Practitioner Family
DX: R06.09 Other forms of dyspnea (principal); R07.9 Chest pain, unspecified; R53.83 Other fatigue
CPT/HCPCS: 78452; 93017; 93018; 93306; A9502; J2785

== ENCOUNTER 2024-01-11 11:58 | Outpatient (CLI) | payer MEDICARE, OTHER, SELFPAY ==
[2024-01-11 13:45] VITALS: BMI 28.6
== END 2024-01-11 23:59 | disposition home or self-care (01) ==
LOC: DIETICIAN 12:00
PROVIDERS: PCP Nurse Practitioner Family; Visit Provider Nurse Practitioner Family
DX: E11.9 Type 2 diabetes mellitus without complications (principal)
CPT/HCPCS: 97802

== ENCOUNTER 2024-01-19 13:54 | Outpatient (CLI) | payer MEDICARE, OTHER, SELFPAY ==
[2024-01-19 14:34] LABS: Basophils # 0.1 K/mm3 (0-0.2); Basophils % 0.9 % (0.1-2.0); Eosinophils # 0.1 K/mm3 (0.0-0.4); Eosinophils % 1.6 % (0.1-12.0); Hematocrit 46.6 % (37.0-47.0); Hemoglobin 15.5 g/dL (12.2-16.2); Lymphocytes # 1.8 K/mm3 (0.7-4.5); Lymphocytes % 29.3 % (10-50); Mean Corpuscular HGB Conc 33.2 g/dL (31.8-35.4); Mean Corpuscular Hemoglobin 30.6 pg (27.0-31.2); Mean Corpuscular Volume 91.9 fl (81-99); Mean Platelet Volume 8.5 fl (7.4-10.4); Monocytes # 0.4 K/mm3 (0.1-1.0); Monocytes % 6.6 % (1.7-9.3); Neutrophils # 3.8 K/mm3 (1.8-7.8); Neutrophils % 61.7 % (37.0-80.0); Platelet Count 224 K/mm3 (142-424); Red Blood Count 5.07 M/mm3 (4.20-5.40); Red Cell Distribution Width 13.4 % (11.5-17.5); White Blood Count 6.2 K/mm3 (4.8-10.8)
[2024-01-19 14:41] LABS: Alanine Aminotransferase 35 U/L (12-78); Albumin Level 4.4 g/dl (3.5-5.0); Albumin/Globulin Ratio 1.8 (1.1-1.8); Alkaline Phosphatase 116 U/L (38-126); Anion Gap 12.3 mEq/L (5-15); Aspartate Amino Transferase 36 U/L (14-36); Bilirubin,Total 0.8 mg/dl (0.2-1.3); Blood Urea Nitrogen 14 mg/dl (7-17); Calcium 10.4 mg/dl (8.4-10.2); Carbon Dioxide 28 mmol/L (22.0-30.0); Chloride 106 mmol/L (98-107); Estimated Glomerular Filt Rate 82 ml/min (>60); GFR (African American) 99 ML/MIN (>60); Globulin 2.4 g/dL (1.3-3.2); Glucose 109 mg/dl (74-100); Potassium 4.3 mmoL/L (3.5-5.1); Sodium 142 mmol/L (136-145); Total Protein,Serum 6.8 g/dl (6.3-8.2)
== END 2024-01-19 23:59 | disposition home or self-care (01) ==
LOC: LAB 13:55
PROVIDERS: PCP Nurse Practitioner Family; Visit Provider Otolaryngology
DX: Z01.818 Encounter for other preprocedural examination (principal); L72.0 Epidermal cyst; J34.89 Other specified disorders of nose and nasal sinuses
CPT/HCPCS: 36415; 80053; 85025

== ENCOUNTER 2024-01-19 14:07 | Outpatient (CLI) | payer MEDICARE, OTHER, SELFPAY ==
--- NOTE | 2024-01-19 14:10 | MM_ITS ---
PROCEDURE INFORMATION: Exam: MG Bilateral Screening 3D Mammography Exam date and time: 01/19/2024 1:57 PM Age: 73 years old Clinical indication: Screening examination TECHNIQUE: Imaging protocol: Bilateral Screening tomosynthesis and 2D mammography including computer-aided detection (CAD) when performed. COMPARISON: 1. MG MM DIG MAMM DX UNILAT RT CAD 09/07/2019 1:04 PM 2. MG MM DIG MAMM DX UNILAT RT CAD 03/07/2019 2:34 PM FINDINGS: MAMMOGRAPHY: Breast composition: There are scattered areas of fibroglandular density. Mass: None. Architectural distortion: None. Calcifications: No suspicious calcifications. Asymmetric density: None. Skin thickening: None. Axillary adenopathy: None. IMPRESSION: No mammographic evidence of malignancy. Annual screening is recommended unless otherwise clinically indicated. ASSESSMENT: BI-RADS Category 1: Negative
== END 2024-01-19 23:59 | disposition home or self-care (01) ==
LOC: RAD 14:08
PROVIDERS: PCP Nurse Practitioner Family; Visit Provider Nurse Practitioner Family
DX: Z12.31 Encounter for screening mammogram for malignant neoplasm of breast (principal); L72.0 Epidermal cyst; J34.89 Other specified disorders of nose and nasal sinuses
CPT/HCPCS: 36415; 77063; 77067; 80053; 85025

== ENCOUNTER 2024-01-31 08:52 | Outpatient (CLI) | payer MEDICARE, OTHER, SELFPAY ==
[2024-01-31] VITALS (7 sets, daily range): BP systolic 110–158; BP diastolic 61–88; PULSE 57–69; RESP 16–18; TEMP 36.4; O2SAT 95–98; BMI 25.5
--- NOTE | 2024-01-31 08:57 | CT_ITS ---
APPROVED REPORT [employer] Buildings Supervisor: CLINICAL INDICATION Chest Pain TECHNIQUE Image Acquisition: A 128 slice MDCT scanner ([employer]achi Prefundiaa View) was used for data acquisition. A noncontrast coronary calcium scan was performed. A CT attenuation threshold of 130 Hounsfield units (HU) was used for the detection of calcium in contiguous voxels of 1 sq mm in area to be counted as individual lesions. Bolus tracking in the ascending aorta with a threshold of 180 HU was performed. Immediately afterwards, ECG synchronized cardiac CT was then performed from the cardiac base to apex using retrospective gating with ECG tube current modulation. A total of 85 mL of Isovue 370 mg/mL contrast medium was administered at 5 mL/sec followed by a saline flush using a biphasic injection protocol. A tube voltage of 120 KVp was used. The average heart rate at the time of acquisition was 51 bpm and regular. Image Reconstruction Transaxial images were reconstructed at 0.67 mm slide thickness. Data was reviewed interactively on an advanced workstation capable of 2 and 3-dimensional displays in all conventional reconstruction formats, including multiplanar reformations, maximum intensity projections, curved multiplanar reformations, and volume rendered reconstructions. When applicable, selected routine images describing the relevant coronary anatomy and pathology were saved and sent to PACS. Complications None Technical Quality Overall image quality was good. Coronary artery opacification was adequate. Total DLP (Dose-Length Product) is 1261.3 mGy-cm. The reported value represents the total of one or more individual components during the CT acquisition of this date and at this time, and as such, the same value may appear in more than one CT report depending on the interpreting/reporting physicians. COMPARISON None FINDINGS CT Coronary Calcium Scoring LMA (Left Main Artery) = 0 LAD (Left Anterior Descending) = 118 LCX (Left Coronary Circumflex) = 0 RCA (Right Coronary Artery) = 0 Total Calcium Score = 118 using the AJ-130 method. The observed calcium score of 118 is at 65th percentile for subjects of the same age, sex, and race/ethnicity. The interpretation of the calcium heart score is based on the following continuum*: 0 = no calcified plaque detected (risk of coronary artery disease is very low ??? less than 5%) 1-10 = calcium detected in extremely minimal levels (risk of coronary diseases is still low ??? less than 10%) 11-100 = mild levels of plaque detected with certainty (mild or minimal narrowing of heart arteries is likely) 101-400 = definite,at least moderate levels of plaque detected (relatively high risk of a heart attack within 3-5 years) >401-999 = extensive levels of plaque detected (high risk of heart attack, high levels of vascular disease are present, high likelihood of at least one significant coronary narrowing) *The calcium heart score quantifies the burden of coronary calcification/plaque in the coronary arteries. The calcium heart score is not able to evaluate the presence or burden of non-calcified (i.e. soft) plaque. There is also mild calcification in the aortic valve. Coronary CT Angiography The coronary arterial system is left dominant. Quantitative Stenosis Grading: Left Main (LM): The left main originates normally from the left sinus of Valsalva. The LM bifurcates into the left anterior descending artery and left circumflex artery. The LM is patent with no evidence of atherosclerosis. Left Anterior Descending (LAD) and Diagonal Branches: The LAD gives off 2 diagonal branch(es). There is mild calcified/noncalcified plaque in the proximal LAD segment, with up to 25-50% luminal stenosis. There is no evidence of LAD-myocardial chiquis
[2024-01-31 09:29] LABS: POC Glucose,Bedside 123 (70-110)
== END 2024-01-31 10:09 | disposition home or self-care (01) ==
PROVIDERS: PCP Nurse Practitioner Family; Visit Provider Nurse Practitioner Family
DX: R06.09 Other forms of dyspnea (principal); R07.9 Chest pain, unspecified; R01.1 Cardiac murmur, unspecified; R94.31 Abnormal electrocardiogram [ECG] [EKG]
CPT/HCPCS: 75574; 82962; Q9967

== ENCOUNTER 2024-02-01 10:48 | Outpatient (CLI) | payer MEDICARE, OTHER, SELFPAY ==
[2024-02-01 12:57] LABS: PHA INR Fingerstick 2.3 (0.9-1.1)
== END 2024-02-01 13:02 ==
LOC: ACC 10:49
PROVIDERS: PCP Nurse Practitioner Family; Visit Provider Nurse Practitioner Family
DX: Z79.01 Long term (current) use of anticoagulants (principal); Z86.718 Personal history of other venous thrombosis and embolism
CPT/HCPCS: 85610; 99211; G0463

== ENCOUNTER 2024-02-08 09:03 | Outpatient (CLI) | payer MEDICARE, OTHER, SELFPAY ==
--- NOTE | 2024-02-08 09:07 | XR_ITS ---
FINAL REPORT TECHNIQUE: Bone mineral density was calculated of the lumbar spine and hip. CLINICAL HISTORY: SCREENING COMPARISON: None FINDINGS: Using L1-4, the bone mineral density of the spine is 0.927 g/cm2, corresponding to T-score of -1.1. Using the left hip, the bone mineral density of the femoral neck is 0.955 g/cm2, corresponding to a T-score of 1.0. NOTE: T-score: Standard deviation compared with peak bone mass of young adult mean. *Following the recommendations of the International Society of Bone densitometry, classification of hip BMD is based on the lower of two T-scores; total hip or femoral neck. IMPRESSION: Diminished bone mineral density of the lumbar spine consistent with low bone density. Normal bone mineral density of the left hip. Reviewed, Interpreted and Dictated by Will Gonzales III, MD Transcribed by Lillie Morris Authenticated and [facility]
== END 2024-02-08 23:59 | disposition home or self-care (01) ==
LOC: RAD 09:03
PROVIDERS: PCP Nurse Practitioner Family; Visit Provider Nurse Practitioner Family
DX: Z78.0 Asymptomatic menopausal state (principal)
CPT/HCPCS: 77080

== ENCOUNTER 2024-03-14 10:29 | Outpatient (CLI) | payer MEDICARE, OTHER, SELFPAY ==
[2024-03-14 12:56] LABS: PHA INR Fingerstick 3.1 (0.9-1.1)
== END 2024-03-14 13:06 ==
LOC: ACC 10:30
PROVIDERS: PCP Nurse Practitioner Family; Visit Provider Nurse Practitioner Family
DX: Z79.01 Long term (current) use of anticoagulants (principal); Z86.711 Personal history of pulmonary embolism
CPT/HCPCS: 85610; 99211; G0463

== ENCOUNTER 2024-04-10 10:33 | Outpatient (CLI) | payer MEDICARE, OTHER, SELFPAY ==
[2024-04-10 11:09] LABS: PHA INR Fingerstick 3.5 (0.9-1.1)
== END 2024-04-10 11:11 ==
LOC: ACC 10:34
PROVIDERS: PCP Nurse Practitioner Family; Visit Provider Nurse Practitioner Family
DX: Z79.01 Long term (current) use of anticoagulants (principal); Z86.711 Personal history of pulmonary embolism
CPT/HCPCS: 85610; 99211; G0463

== ENCOUNTER 2024-04-11 14:00 | Outpatient (POV) | payer MEDICARE, OTHER, SELFPAY | END 2024-04-11 23:59 | disposition home or self-care (01) | LOC: SC 04-12 06:40 | PROVIDERS: Visit Provider Dermatology | DX: Z00.00 Encounter for general adult medical examination without abnormal findings (principal) ==

== ENCOUNTER 2024-04-24 10:30 | Outpatient (CLI) | payer MEDICARE, OTHER, SELFPAY ==
[2024-04-24 14:17] LABS: PHA INR Fingerstick 2.7 (0.9-1.1)
== END 2024-04-24 14:35 ==
LOC: ACC 10:31
PROVIDERS: PCP Nurse Practitioner Family; Visit Provider Nurse Practitioner Family
DX: Z79.01 Long term (current) use of anticoagulants (principal); Z86.718 Personal history of other venous thrombosis and embolism
CPT/HCPCS: 85610; 99211; G0463

== ENCOUNTER 2024-05-03 08:48 | Outpatient (CLI) | payer MEDICARE, OTHER, SELFPAY ==
--- NOTE | 2024-05-03 08:52 | FL_ITS ---
FINAL REPORT CLINICAL HISTORY: DYSPEPSIA FLUORO TIME 1:50, 98.95 mGY FINDINGS: UPPER GI EXAM HISTORY: Epigastric pain. Dyspepsia. History of hiatal hernia repair. PROCEDURE: The patient ingested barium. Effervescent crystals were also administered. 25 fluoroscopic spot films were obtained. FINDINGS: No esophageal stricture is identified. A 13 mm barium tablet passes through the esophagus and into the stomach without delay. There is a small outpouching identified at the gastroesophageal junction, likely related to prior hernia repair and fundoplication. Otherwise, no recurrent hernia is identified. No gastroesophageal reflux was demonstrated during the exam. Esophageal motility is within normal limits. Rugal full pattern is normal. Stomach empties appropriately. The duodenum is unremarkable. Fluoro time: 1 minute 50 seconds Radiation exposure in Reference air Kerma: 98.95 mGy. IMPRESSION: Small outpouching at the gastroesophageal junction, likely related to prior surgery. Otherwise, no recurrent hernia or gastroesophageal reflux identified. Films reviewed , interpreted and dictated by Dr. Gonzales. Transcribed by Aung Shin PA-C. Reviewed, Interpreted and Dictated by Will Gonzales III, MD Transcribed by PRIETO Gonsalves Authenticated and [facility]
[2024-05-03] MEDS: BARIUM SULFATE (E-Z-HD 340GM);135ML BOTTLE 135 ML PO (09:46)
[2024-05-03] MEDS: BARIUM SULFATE(LIQUID E-Z-PAQUE);355ML BOTTLE 355 ML PO (09:46)
[2024-05-03] MEDS: E-Z-GASII EFFERVESCENT GRANULES;1PK 1 EACH PO (09:46)
== END 2024-05-03 23:59 | disposition home or self-care (01) ==
LOC: RAD 08:49
PROVIDERS: PCP Nurse Practitioner Family; Visit Provider Nurse Practitioner Family
DX: R10.13 Epigastric pain (principal)
CPT/HCPCS: 74246

== ENCOUNTER 2024-06-05 11:52 | Outpatient (CLI) | payer MEDICARE, OTHER, SELFPAY ==
[2024-06-05 15:05] LABS: PHA INR Fingerstick 2.6 (0.9-1.1)
== END 2024-06-05 13:10 ==
LOC: ACC 11:55
PROVIDERS: PCP Nurse Practitioner Family; Visit Provider Nurse Practitioner Family
DX: Z79.01 Long term (current) use of anticoagulants (principal); Z86.718 Personal history of other venous thrombosis and embolism
CPT/HCPCS: 85610; 99211; G0463

== ENCOUNTER 2024-08-31 11:24 | Outpatient (CLI) | payer MEDICARE, OTHER, SELFPAY ==
[2024-08-31 11:52] LABS: PHA INR Fingerstick 1.5 (0.9-1.1)
== END 2024-08-31 12:06 ==
LOC: ACC 11:25
PROVIDERS: PCP Nurse Practitioner Family; Visit Provider Nurse Practitioner Family
DX: Z79.01 Long term (current) use of anticoagulants (principal); Z86.711 Personal history of pulmonary embolism
CPT/HCPCS: 85610; 99211; G0463

== ENCOUNTER 2024-09-28 09:51 | Outpatient (CLI) | payer MEDICARE, OTHER, SELFPAY ==
[2024-09-28 12:03] LABS: PHA INR Fingerstick 2.3 (0.9-1.1)
== END 2024-09-28 13:15 ==
LOC: ACC 09:52
PROVIDERS: PCP Nurse Practitioner Family; Visit Provider Nurse Practitioner Family
DX: Z79.01 Long term (current) use of anticoagulants (principal); Z86.718 Personal history of other venous thrombosis and embolism
CPT/HCPCS: 85610; 99211; G0463

== ENCOUNTER 2024-10-02 13:32 | Outpatient (CLI) | payer MEDICARE, OTHER, SELFPAY ==
--- NOTE | 2024-10-02 13:36 | XR_ITS ---
FINAL REPORT CLINICAL HISTORY: SOA, R side pain hernia repair 3 yrs ago COMPARISON: 10/15/2019 FINDINGS: 2 views of the chest were obtained . The heart is normal in size. The mediastinum is within normal limits. The lungs are clear. There is no pneumothorax. Osseous structures are unremarkable. IMPRESSION: No acute cardiopulmonary process. Reviewed, Interpreted and Dictated by Arnaldo Hernandez MD Transcribed by Mana Sethi Authenticated and [facility]
== END 2024-10-02 23:59 | disposition home or self-care (01) ==
LOC: RAD 13:33
PROVIDERS: PCP Nurse Practitioner Family; Visit Provider Nurse Practitioner Family
DX: R06.02 Shortness of breath (principal)
CPT/HCPCS: 71046

== ENCOUNTER 2024-11-08 10:21 | Outpatient (CLI) | payer MEDICARE, OTHER, SELFPAY ==
--- OUTSIDE RECORDS SUMMARY | 2024-11-08 10:23 | XMS_ITS | Data Portability ---
Author Organization [facility] Address [address] [place] [address] Care Team Providers Care Roll Up Operator Name Role Phone GUILLERMINA MEDRANO Primary Care Provider JAKE LLAMAS General Surgeon Assessment Encounter Date Assessment Date Assessment LastModified by Organization Details LastModified Time 03/27/2022 03/27/2022 71-year-old fema le with a large paraesophageal hernia containing intrathoracic stomach. Symptoms include chest pressure, early satiety, mild dysphasia. She underwent CT scan at [facility] that shows intrathoracic stomach. We will request that these images be forwarded. We discussed workup for repair of a paraesophageal hernia that would also include EGD and upper GI series. We briefly discussed the process of hernia repair and recovery phase. It would typically be recommended that a symptomatic hernia this large be considered for repair if the patient is a reasonable surgical candidate. She is [employer] and would decline blood transfusion. We would need to hold Coumadin before surgery. We will plan for upper GI series, EGD and return to office to discuss possibility of paraesophageal hernia repair. Not available 03/27/2022 12:27:17 04/13/2022 04/13/2022 Date of Procedur e: 04/13/2022 Surgeon: Jake Llamas MD Preoperative Diagnosis: Large paraesophageal hernia containing intrathoracic stomach Postoperative Diagnosis: Same Procedures Perfomed: EGD Anesthesia: Conscious sedation Specimens: None Estimated Blood Loss: None Indications: 71-year-old female who has been found to have a large paraesophageal hernia containing essentially intrathoracic stomach. She has symptoms including early satiety, reflux and occasional regurgitation. She is undergoing workup for possible hernia repair. As part of this we made arrangements for upper GI series and EGD. Procedure: She was brought to the endoscopy suite. Monitoring lines were in place. Timeout was called to identify the patient and procedure and conscious sedation was administered. A well lubricated flexible endoscope was inserted through the mouth down the esophagus under direct vision. It was passed through the GE junction which was just slightly tight from the hernia appearance. It was then traversed through the stomach and down to the pylorus. The pylorus was open and the scope was advanced to the second portion of duodenum which was normal. It was then withdrawn back into the stomach which was insufflated. Retroflexed view showed the large paraesophageal hernia containing at least one half intrathoracic stomach which was partly reduced down into the abdomen with insufflation. There was a bit of erythema around the area of encroachment from the diaphragm externally but no significant Lobo's ulcers or erosions identified. Fundus of the stomach was completely within the thoracic cavity. Scope was then withdrawn after the stomach was desufflated. GE junction and esophagus were normal with no mucosal abnormalities. She tolerated this well and was brought to recovery in good condition. All counts are correct. Not available 04/13/2022 12:37:42 05/01/2022 05/01/2022 71-year-old fema le with a large paraesophageal hernia. She has symptoms including early satiety, lower chest and epigastric discomfort pressure, occasional reflux and regurgitation and shortness of air. On exam she has regular rate and rhythm, normal work of breathing, abdomen soft, no peripheral edema At this point she has undergone thorough workup including CT chest which shows no intrathoracic stomach. There was some mild gallbladder wall thickening noted on this without obvious gallstones identified. She had upper endoscopy 04/13/2022 which showed a large paraesophageal hernia with some mild gastritis around the area of diaphragm. She had upper GI series that shows a large esophageal hernia with moderate gastroesophageal reflux. We had a long discussion regarding the findings and options. Given the size of this large paraesophageal hernia it would typically be recommended to proceed with repair particularly in the presence of moderate to severe symptoms as she has. We discussed a laparoscopic paraesophageal hernia repair with completion EGD. We discussed also gallbladder evaluation at the time of surgery given the gallbladder wall thickening that was noted on CT scan. Depending on appearance of gallbladder we may proceed with cholecystectomy at the time of operation. We discussed the procedure, recovery, risks of bleeding, infection, damage to other structures including esophagus, stomach, liver, spleen, pancreas, bile duct, intestine, need for additional procedures or treatments. Of particular note she is [employer] and refuses blood transfusion. We discussed that bleeding risk with this operation is quite low however certainly a possibility with any operation. We will have her hold warfarin for at least five days preoperatively. When convenient we will proceed with laparoscopic paraesophageal hernia repair with completion EGD and possible laparoscopic cholecystectomy. This would occur at [facility] after preoperative anesthesia evaluation and clearance. Not available 05/03/2022 14:26:28 08/14/2022 08/14/2022 72-year-old beverly barros who had laparoscopic paraesophageal hernia repair 07/21/2022. She had one half intrathoracic stomach. She is doing well, tolerating diet and has no dysphagia, reflux or regurgitation. Her shortness of breath has improved quite a bit. Her incisions are healing without erythema or drainage. Overall making good recovery. Can continue advancing diet along and try more solid food. Advised her to avoid heavy lifting for about 2 months from surgery. We will plan for follow-up in about 4 weeks. Not available 08/15/2022 10:52:54 09/11/2022 09/11/2022 72-year-old femryan barros who had laparoscopic paraesophageal hernia repair on 07/21/2022. She had a large hernia containing around one half intrathoracic stomach. She is doing very well. States her dyspnea on exertion has improved dramatically and she is now able to ambulate without becoming short of breath. She is tolerating regular diet, without dysphagia or regurgitation. Incisions have healed nicely. Okay for normal diet and activity. Did ask her to mostly avoid carbonated beverages as it does cause some stress on the repair. Otherwise we can plan for follow-up as needed but happy to see her back anytime if questions or concerns arise. Not available 09/11/2022 10:06:58 Plan of Treatment Reminders Order Date Submit Date Provider Last Modified By Organization Details Last Modified Time Details Appointments None record ed. Lab None record ed. Referral None record ed. Procedures None record ed. Surgeries None record ed. Imaging None record ed. Medication Orders None record ed. Patient TargetsNo targets recorded. Patient InstructionsNo instructions recorded. Reason for Referral None Reported. Results Created Date Observation Date Name Description Value Unit Range Abnormal Flag Note LastModifiedBy Organization Detail LastModifiedTime 04/09/20 22 04/09/2022 XR, abdom en + RF, upper gastr ointe chelsea l tract , w/ air, w/ contr ast PO [place] [facility] [address] [place] [address] Patirebeka t Name: KIM VIERA RD Patirebeka t : 1949 Patien t 32 Orderi ng Provid er: MONTSE LLAMAS EXAM DATE: 2021 EXAM: RF UGI W AIR CONTRA [facility] INFORM ATION: Hiatus hernia . Shortn ess of breath . TECHNI QUE: A accounting coordinator view of the abdome n was obtain ed. Multip le double contra st images of variou s parts of the esopha jourdan, stomac h and duoden um were obtain ed using gas asya ls and high-d ensity barium suspen joie. This was follow ed by multip le prone images of the esopha jourdan during swallo wing and assess ment for reflux . FINDIN GS: KUB TICKET SCHEDULER: Center Aisle Cashier view shows no abnorm al intest inal gas patter n or eviden ce of free air. ESOPHA JOURDAN: Esopha jourdan is normal in outlin e, mucosa l patter n and calibe r. Esopha geal motili ty is normal with a normal perist altic stripp ing wave and second bernadette perist altic waves. No tertia ry waves are noted. STOMAC H: There is a large mixed type I and type II hiatus hernia contai cuco the fundus of the stomac h. Body and antrum of the stomac h are normal in disten sibili ty, outlin e and mucosa l outlin e. No mass or ulcer is seen. DUODEN UM: Duoden al bulb and loop are normal in disten sibili ty, outlin e and mucosa l patter n. No mass or ulcer is seen. ASSESS MENT FOR REFLUX : Modera te gastro esopha geal reflux is noted. IMPRES JOIE: 1. 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 2. No obviou s eviden ce of esopha geal shorte cuco. 3. Modera te gastro esopha geal reflux . Interp reted By: Matt Robledo MD Electr onical ly Signed By: Matt Robledo MD on 022 5:[address] [facility], [address], 04/10/2022 07:46:14 Result Notes None recorded. Problems Name Problem SNOMED Code Status Onset Date Resolution Date Notes Provider Name and Address Organization Details Recorded Time Disorder of thyroid gland 93774825 Active 2021 Cristina Perkins [facility] 2 10:39:49 Diverticulitis 223577318 Active 2021 Cristina Perkins [facility] 2 10:40:03 Dyspnea 783479392 Active 2021 Cristina Perkins [facility] 2 10:43:21 Chest pain 64507551 Active 2021 Cristina Perkins [facility] 2 10:43:37 Problem Notes None recorded. Procedures Surgical History Date Name Laterality Status Provider Name and Address Organization Details Recorded Time extraction of cataract completed Cristina Perkins [facility] 03/27/2022 10:41:59 repair of paraesophageal diaphragmatic hernia completed Demi Rutherford [facility] 08/14/2022 11:29:10 Imaging Results Imaging Date Name Status LastModified by Organization Details LastModified Time 04/09/2022 XR, abdomen + RF, upper gastrointestinal tract, w/ air, w/ contrast PO completed [address], [address], 04/10/2022 07:46:14 Procedure Notes None recorded. Medical Equipment None Reported. Allergies No known drug allergies Medications Name Sig Start Date Stop Date Status Note LastModified by Organization Details LastModified Time atorvastatin 10 mg tablet Take 1 tablet every day by oral route. active Not Available Not Available No t Available diltiazem CD 180 mg capsule,extend ed release 24 hr Take 1 capsule every day by oral route. active Not Available Not Available No t Available meloxicam 15 mg tablet Take 1 tablet every day by oral route. active Not Available Not Available No t Available omeprazole 40 mg capsule,delaye d release Take 1 capsule every day by oral route. active Not Available Not Available No t Available methimazole 10 mg tablet Take 1.5 tablets every day by oral route. active Not Available Not Available No t Available warfarin 5mg daily active Not Available Not A vailable Not Available Calcium 600 active Not Available Not A vailable Not Available multivitamin active Not Available Not Available Not Available Vitals Date Recorded Body weight Body mass index (BMI) Body height Heart rate Systolic blood pressure Diastolic blood pressure Provider Name and Address Organization Details Last Updated DateTime 2 73623.0 2 g 24.9 kg/m2 167.64 cm 69 /min 159 mm[Hg] 84 mm[Hg] [facility] 2 10:33:58 Date Recorded Body height Body mass index (BMI) Body weight Heart rate Systolic blood pressure Diastolic blood pressure Provider Name and Address Organization Details Last Updated DateTime 2 167.64 cm 27.4 kg/m2 07801.7 g 71 /min 118 mm[Hg] 79 mm[Hg] [facility] 2 10:02:52 Date Recorded Body height Heart rate Body mass index (BMI) Body weight Systolic blood pressure Diastolic blood pressure Provider Name and Address Organization Details Last Updated DateTime 3 167.64 cm 71 /min 25.9 kg/m2 60746.5 g 126 mm[Hg] 75 mm[Hg] Demi Krish [facility] 3 11:27:40 Date Recorded Body height Body mass index (BMI) Body weight Heart rate Systolic blood pressure Diastolic blood pressure Provider Name and Address Organization Details Last Updated DateTime 3 167.64 cm 25.7 kg/m2 24474.1 9 g 74 /min 146 mm[Hg] 99 mm[Hg] [facility] 09:30:03 Social History Question Answer Notes LastModified by Organizat ion Details LastModified Time Tobacco Smoking Status Former [facility]/14/2022 11:28:55 What Is Your Level Of Alcohol Consumption? None Information not available 03/27/2022 Do You Use Any Illicit Or Recreational Drugs? No Information not available 03/27/2022 Have You Recently Traveled Abroad? No Information not available 03/27/2022 Sex: Unknown Functional Status None recorded. Mental Status None recorded. Family History Relationship Description Onset Age of this Age Resolved Age Notes LastModified by Organization Details LastModified Time Father No current problems or disability [email or web address] Not available 08/14 11:28:37 Mother No current problems or disability [email or web address] Not available 08/14 11:28:37 Medical History No medical history recorded. Gynecological HistoryNo gynecological history recorded. Obstetrics History GPAL:G 0 P 0 0 0 0 Past Encounters Encounter ID Performer Location Encounter Start Date Encounter Closed Date Diagnosis/Indication Diagnosis SNOMED-CT Code Diagnosis ICD10 Code Diagnosis Note [id number] JAKE LLAMAS MD GENERAL SURGERY [address] [address] 03/27/2022 10:18:32 03/31/2022 15:33:20 Paraesophageal hernia 1529721 K44.9 [id number] JAKE LLAMAS MD SURGERY SCHEDULE [address] [place] [address] 04/13/2022 09:55:13 04/13/2022 09:56:04 Paraesophageal hernia 4850585 K44.9 [id number] JAKE LLAMAS MD GENERAL SURGERY [address] [address] 05/01/2022 09:36:22 05/04/2022 12:41:27 Paraesophageal hernia 5146603 K44.9 Chronic cholecystitis 20 547996 K81.1 [id number] JAKE LLAMAS MD GENERAL SURGERY [address] [address] 08/14/2022 11:16:20 08/16/2022 04:07:55 Paraesophageal hernia 9509383 K44.9 [id number] JAKE LLAMAS MD GENERAL SURGERY [address] [place] [address] 09/11/2022 09:23:38 09/12/2022 04:06:26 Paraesophageal hernia 4658451 K44.9 Health Concerns Section Related Observation LastModified by Organization Detai ls LastModified Time None Recorded Concern Status LastModified by Organization Details LastModified Time None Recorded Advance Directives Directive None Recorded Payers Insurance Date Sequence Insurance Name Policy Number Policy Farmer Covered Member ID Farmer Member ID Guarantor Name 09/08/2022 2 [employer] (MEDICARE SUPPLEMENT) Kim Jose Soria [id number] Kim Jose Soria 09/08/2022 1 [place] Kim Jose Soria [id number] Kim Soria Notes Date Note Type Note Provider Name and Address Organization Details Recorded Time 03/27/2022 text/html 71-year-old fema le with long-standing known history of hiatal hernia. She has discomfort and pressure sensation in the upper chest along with some shortness of breath with exertion. She has mild dysphagia. No particular reflux or regurgitation. She has some early satiety. Surgical history includes tubal ligation many years ago. The symptoms prompted a visit to the emergency department at [facility]. She had CT that shows intrathoracic stomach. She takes Coumadin for history of DVT. She is [employer] and declines blood transfusion. JAKE LLAMAS MD [facility] [place], [address], [facility] 03/27/2022 12:27:31 OBGyn Episode No OBEpisode recorded.
[2024-11-08 11:49] LABS: PHA INR Fingerstick 2.2 (0.9-1.1)
== END 2024-11-08 13:42 ==
LOC: ACC 10:21
PROVIDERS: PCP Nurse Practitioner Family; Visit Provider Nurse Practitioner Family
DX: Z79.01 Long term (current) use of anticoagulants (principal); Z86.718 Personal history of other venous thrombosis and embolism
CPT/HCPCS: 85610; 99211; G0463

== ENCOUNTER 2025-01-02 09:16 | Outpatient (CLI) | payer MEDICARE, OTHER, SELFPAY ==
--- OUTSIDE RECORDS SUMMARY | 2024-10-07 17:30 | XMS_ITS ---
Author Organization [facility] Address [address] [place] [address] Care Team Providers Care Extrusion Line Operator Name Role Phone Svetlana Peter Primary Care Provider [phone] SVETLANA PETER Unavailable Unavaila ble Migration, Provider Unavailable Unavailable REAS[facility] Encounter Medications Medication SIG (Take, Route, [...] review and pick correct strength-formulatio n from [facility] options. If intended option is not shown, discontinue and re-order from Quick Search* Active Encounters Encounter Location Date Provider Diagnosis [facility] [address] [facility] [address] [facility] [address] [place] [address] 10/07/2024 Provider Migration Plan Of Treatment Next Appt Details Provider Name:Svetlana Pillairebeka flores, 01/02/2025 10:15:00 AM, [address] [facility] [address] [facility], [address], [place], [address], Provider Name:Svetlana Pillairebeka flores, 01/11/2025 11:00:00 AM, [address] [facility] [address] [facility], [address], [place], [address], Progress Notes * Kim DIAZ IDOB:1949 (74 yo F)Acc No.[id number]:10/07/2024 Patient: Kim MCLAUGHLIN I Provider: Vinny regalado Migration :1950 A ge:74 Y S ex:Female Date:10/07/2024 Address:[address] [place] [address] , [place], [id number] Pcp:Svetlana Peter Subjective: * Chief Complaints: * 1 . [facility] Encounter. * Medical History: * Medications: T aking Tylenol 325 MG Tablet 2 tab(s) orally every 4 hours , Notes to Pharmacist: prn, Taking Calcium 600 + D 600 MG-20 MCG TABLET 1 TAB(S) ORALLY ONCE A DAY , Notes to Pharmacist: *Please review and pick correct strength-formulation from [facility] options. If intended option is not shown, [...] * Treatment: * * Electronic signature of Castro sutton Migration on 01/02/2025 at 09:20 AM EDT Sign off status: Pending * Provider: Vinny regalado Migration Date: 0 10/07/2024 Generated for Marichuy mcdowell/Logan/Hero on: 0 01/02/2025 09:20 AM EDT
--- OUTSIDE RECORDS SUMMARY | 2024-11-08 07:00 | XMS_ITS ---
Author Organization [facility] Address [address] [place] [address] Care Team Providers Care Stationary Plant Operators Name Role Phone Svetlana Peter Primary Care Provider SVETLANA PETER Unavailable Unavaila Jerman Funez Unavailable [phone] Allergies No Known Allergies REASON FOR VISIT Discuss a different blood thinner medication Medications Medication SIG (Take, Route, Frequency, Duration) Notes Start Date End Date Status methIMAzole 10 MG 1 tab(s) orally daily; Duration: 90 days Active Atorvastatin Calcium 40 MG 1 tab(s) orally once a day; Duration: 30 days Active Warfarin Sodium 2.5 MG 1 tab(s) orally once a day; Duration: 30 days 07/13/2024 Active metFORMIN HCl 500 MG 1 tab(s) orally 2 times a day; Duration: 90 days Active Famotidine 40 MG 1 tablet Orally Once a day; Duration: 90 days 11/04/2024 Active Century - 1 tab(s) orally once a day Active Calcium 600 + D 600 MG-20 MCG 1 TAB(S) ORALLY ONCE A DAY *Please review and pick correct strength-formulatio n from [facility] options. If intended option is not shown, discontinue and re-order from Quick Search* Active Social History Tobacco Use: Social History Observation Description Date Details (start date - stop date) Former Smoker NA - NA Smoking: Question Answer Notes Are you a: former smoker Problems Problem Type SNOMED Code ICD Code Onset Dates Problem Status W/U Status Risk Notes Problem Chronic deep venous thrombosis of right lower extremity (disorder) (45912070007566 2) Chronic deep vein thrombosis (DVT) of right lower extremity, unspecified vein (I82.501) Active confirmed Vital Signs Temperature 97.8 degrees Fahrenheit 11/09/19 25 Blood pressure systolic 138 mm Hg 11/09/19 25 Blood pressure diastolic 88 mm Hg 025 Heart Rate 72 /min 11/08/2024 Height 64.75 in 11/08/2024 Weight 158.8 lbs 11/08/2024 BMI 26.63 kg/m2 11/08/2024 Encounters Encounter Location Date Provider Diagnosis [facility] [address] [place] [address] 11/08/2024 Jerman Velez Chronic deep vein thrombosis (DVT) of right lower extremity, unspecified vein I82.501 and Pulmonary embolism, unspecified chronicity, unspecified pulmonary embolism type, unspecified whether acute cor pulmonale present I26.99 Assessments Encounter Date Diagnosis (ICD Code) Assessment Notes Treatment Notes Treatment Clinical Notes Section Notes 11/08/2024 Chronic deep vein thrombosis (DVT) of right lower extremity, unspecified vein (ICD-10 - I82.501) -Per hx, appears to have had multiple unprovoked DVT's in the past starting in early adulthood -Has had recurrence of DVTs through warfarin therapy in the past -Hx of rheumatic fever, no known rheumatic Ht dz and no evidence of such on latest echo from -Could consider familial workup: PGM gene, FVL, LA, anti-cardiolipin , and anti-[id number] rotein (cannot interpret C, S, or AT def in Pt on warfarin therapy)__but given age, significant thromboses hx as above would be unlikely to change coordinator -would reccomend Pt remain on warfarin pre-operatively, will need a lovenox bridge which we will discuss w/coumadin clinic/pharmacy -RTC 3 months for fup on chronic medical conditions 11/08/2024 Pulmonary embolism, unspecified chronicity, unspecified pulmonary embolism type, unspecified whether acute cor pulmonale present (ICD-10 - I26.99) -Pt reportin hx of PE in association w/DVTs as above Plan Of Treatment Treatment Notes Assessment Notes Chronic deep vein thrombosis (DVT) of right lower extremity, unspecified vein -Per hx, appears to have had multiple unprovoked DVT's in the past starting in early adulthood -Has had recurrence of DVTs through warfarin therapy in the past -Hx of rheumatic fever, no known rheumatic Ht dz and no evidence of such on latest echo from -Could consider familial workup: PGM gene, FVL, LA, anti-cardiolipin, and anti-[id number] (cannot interpret C, S, or AT def in Pt on warfarin therapy)__but given age, significant thromboses hx as above would be unlikely to change coordinator -would reccomend Pt remain on warfarin pre-operatively, will need a lovenox bridge which we will discuss w/coumadin clinic/pharmacy -RTC 3 months for fup on chronic medical conditions Pulmonary embolism, unspecif ied chronicity, unspecified pulmonary embolism type, unspecified whether acute cor pulmonale present -Pt reportin hx of PE in association w/DVTs as above Next Appt Details Follow Up: prn, Reason: Provider Name:Svetlana flores, 01/02/2025 10:15:00 AM, [address] [place] [address], [facility] [address], [place], [address], Provider Name:Svetlana flores, 01/11/2025 11:00:00 AM, [address] [place] [address], [address], [place], [address], Progress Notes * Kim DIAZ IDOB:1949 (74 yo F)Acc No.[id number]:11/08/2024 Progress Notes Patient: Kim MCLAUGHLIN I Provider: Chandrika Velez MD :1950 A ge:74 Y S ex:Female Date:11/08/2024 Address:[address] [place] [address] [id number] Pcp:Svetlana Peter Subjective: * Chief Complaints: * 1 . Discuss a different blood thinner medication. * HPI: g en: Has a hysterectomy planned in January and surgery requesting a change in AC if possible Pt notes she has been on Coumadin/warfarin f or 20-25 years Had a DVT/PE for the first time in her 30s a nd was placed on AC following this event; one clot formed following childbirth, and then had multiple recurrent clots, up to 12 per Pt (occured during period of appropriate activity); quit smoking in (<1ppd), Only ever been on estrogen cream for HRT, no systemic treatment. Has had clots while taking warfarin in the past. No known workup for hereditary thrombophilias; no known family hx Had rheumatic fever as a child, has a known murmur but has [place] valves No hx of Afib NO hx of CVA/TIA. 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 * Surgical History: h ernia repair , tubal ligation , cataract removal . * Family History: F ather: , heart disease, diabetes. M other: , renal cell cancer. P aternal Grand Father: . P aternal Grand Mother: . M aternal Grand Father: . M aternal Grand Mother: . S iblings: alive, brother and 1 sister passed awaybrother- brain tumor. C hildren: alive, oldest child - heart diseasearthritis. 1 brother(s) , 5 sister(s) - healthy. 3 son(s) - healthy. . * Social History: S moking A re you a: f ormer smoker. R ecreational drug use: no. Exercise: no. Home smoke detector use: yes. Caffeine: yes, frequency: daily. Living Will: Yes, Patient is a Mandaeism. She wishes to not receive any blood transfusions.. Alcohol: socially. Sexually active: no. Travel outside [place]: no. * Medications: T aking Calcium 600 + D 600 MG-20 MCG TABLET 1 TAB(S) ORALLY ONCE A DAY , Notes to Pharmacist: *Please review and pick correct strength-formulation from [facility] options. If intended option is not shown, discontinue and re-order from Quick Search*, Taking Century - Tablet 1 tab(s) orally once a day , Taking metFORMIN HCl 500 MG Tablet 1 tab(s) orally 2 times a day , Taking methIMAzole 10 MG Tablet 1 tab(s) orally daily , Taking Warfarin Sodium 2.5 MG Tablet 1 tab(s) orally once a day , Taking Atorvastatin Calcium 40 MG Tablet 1 tab(s) orally once a day , Taking Famotidine 40 MG Tablet 1 tablet Orally Once a day , Discontinued Tylenol 325 MG Tablet 2 tab(s) orally every 4 hours , Notes to Pharmacist: prn, Discontinued Triamcinolone Acetonide 0.1 % Ointment 1 kwadwo applied topically 2 times a day , Discontinued DILTIAZEM (EQV-CARDIZEM CD) 180 MG/24 HOURS CAPSULE, EXTENDED RELEASE 1 CAP(S) ORALLY ONCE A DAY , Notes to Pharmacist: *Please review for potential replacement for e-prescription and drug interaction check*, Medication List reviewed and reconciled with the patient * Allergies: N .K.D.A. Objective: * Vitals: N urse: KJ, Pain: 1 chest, Temp: 97.8, RR: 18, HR: 72, BP: 138/88, Ht: 64.75, Wt: 158.8, BMI:26.63. * Examination: G eneral Examination: General P leasant and Cooperative, NAD on RA,. Heart: R egular Rate and Rhythm, no murmur, rubs or gallops. Lungs: L CTAB, No wheezes, crackles or rhonchi, Good air movement,. Abdomen: S oft, NTND, BSNA, No organomegaly or peritoneal signs.. Neurologic Exam: n o focal signs,, normal sensation, strength, tone and reflexes,, Alert and oriented x 3. Skin: S ignificant varicosity in BLLE. Peripheral pulses: W eak but intact BL. Extremities: N on tender palpable chord in the RLE.. ? Assessment: * Assessment: 1. C hronic deep vein thrombosis (DVT) of right lower extremity, unspecified vein - I82.501 (Primary) 2 . P ulmonary embolism, unspecified chronicity, unspecified pulmonary embolism type, unspecified whether acute cor pulmonale present - I26.99 Plan: * Treatment: 2. P ulmonary embolism, unspecified chronicity, unspecified pulmonary embolism type, unspecified whether acute cor pulmonale present Notes: -Pt reportin hx of PE in association w/DVTs as above * Follow Up: p rn * * Sign off status: Completed true * Provider: Chandrika Velez MD Date: 0 11/08/2024 Generated for Marichuy mcdowell/Logan/Cecilleitting on: 0 01/02/2025 09:18 AM EDT History and Physical Notes * HPI (History of Present Illness) Category Sub-Category Detail Notes Category Not es Has a hysterectomy planned in January and surgery requesting a change in AC if possible Pt notes she has been on Coumadin/warfarin for 20-25 years Had a DVT/PE for the first time in her 30s and was placed on AC following this event; one clot formed following childbirth, and then had multiple recurrent clots, up to 12 per Pt (occured during period of appropriate activity); quit smoking in (<1ppd), Only ever been on estrogen cream for HRT, no systemic treatment. Has had clots while taking warfarin in the past. No known workup for hereditary thrombophilias; no known family hx Had rheumatic fever as a child, has a known murmur but has [place] valves No hx of Afib NO hx of CVA/TIA Examination Category Sub-Category Detail Notes Category Not es General Examination Heart: Regular Rate and Rhythm, no murmur, rubs or gallops Lungs: LCTAB, No wheezes, c rackles or rhonchi, Good air movement, Abdomen: Soft, NTND, BSNA, No organomegaly or peritoneal signs. Extremities: Non tender palpable chord in the RLE. Skin: Significant varicosi ty in BLLE Neurologic Exam: no focal signs,, nor mal sensation, strength, tone and reflexes,, Alert and oriented x 3 Peripheral pulses: Weak but intact BL General Pleasant and Coopera tive, NAD on RA,
--- OUTSIDE RECORDS SUMMARY | 2025-01-02 09:18 | XMS_ITS | Referral Summary ---
Author Organization [employer] ([place], [place], [place], [place]) Address [address] [place] [address] Care Team Providers Care Automatic Embroidery Machine Tender Name Role Phone [facility], Provider Not In The System Primary Care Provider Unavailable Allergies No known active allergies Medications dilTIAZem (CARDIZEM CD) 180 MG 24 hr capsule Take 180 mg by mouth daily. 07/07/2022 Active multivitamin-min erals-lutein (Multivitamin 50 Plus) Tab Take 1 tablet by mouth daily. Active methIMAzole (TAPAZOLE) 10 MG tablet Take 15 mg by mouth daily. 07/07/2022 Active omeprazole (PriLOSEC) 40 MG capsule Take 40 mg by mouth daily. Active warfarin (COUMADIN, JANTOVEN) 5 MG tablet Take 5 mg by mouth daily. Active atorvastatin (LIPITOR) 10 MG tablet Take 10 mg by mouth daily. 06/25/2022 Active calcium carbonate-vitami n D3 (Calcium 500 With D) 500 mg-10 mcg (400 unit) Tab Take 1 tablet by mouth daily. Active Active Problems Problem Noted Date Diagnosed Date Esophageal hiatal hernia 07/23/2022 Hiatal hernia 07/21/2022 Hyperlipidemia 07/17/2022 Thyroid disease 07/17/2022 GERD (gastroesophageal reflux disease) Diverticulitis 03/27/2022 History of DVT (deep vein thrombosis) 01/16/2016 Overview (07/17/2022): 1. Multiple, on chronic Coumadin therapy: a. First at 32 years following . b. Second at 39 years on Coumadin therapy with historical intolerance to generic warfarin. c. DVT at 57 on brand name Coumadin therapy. Hypertension 01/16/2016 Overview (07/17/2022): 01/23/2015: EKG from today shows sinus rhythm with ventricular rate of 91 beats per minute, LA interval of 164 ms, and QRS duration of 72 ms. Social History Tobacco Use Types Packs/Day Years Used Date Smoking Tobacco: Former Cigarettes 0 07/17/1968 - 07/17/1972 Smokeless Tobacco: Never Alcohol Use Standard Drinks/Week Comments Yes 0 (1 standard drink = 0.6 oz pur e alcohol) RARELY Food Insecurity Answer Date Recorded Food run out past 12 months Not on file 07/06 Food did not last past 12 months Not on file 07/24/2023 Employment Answer Date Recorded Help finding and keeping a job Not on file 0 07/24/2023 Family and Community Support Answer [place] e Recorded Help with Day to Day Activities Not on file 07/24/2023 Feeling Lonely or Isolated Not on file 07/24 Educational Attainment Answer Date [place] rded Speak language other than Samoan at home Not on file 07/24/2023 Want help with school or training Not on file 07/24/2023 Substance Use Answer Date Recorded Used prescription meds for non-medical reasons N ot on file 07/24/2023 Used illegal drugs past 12 months Not on file 07/24/2023 Comments No Sex and Gender Information Value Date Recorded Sex Assigned at Not on file Legal Sex Female 8:31 AM CDT Gender Identity Not on file Sexual Orientation Not on file Last Filed Vital Signs Vital Sign Reading Time Taken Comments Blood Pressure 136/74 07/24/2022 6:09 AM EST Pulse 72 07/24/2022 6:09 AM EST Temperature 36.5 C (97.7 F) 07/24/2022 6:09 AM EST Respiratory Rate 16 07/24/2022 2:15 AM EST Oxygen Saturation 96% 07/24/2022 9:02 AM EST Inhaled Oxygen Concentration - - Weight 75.5 kg (166 lb 8 oz) 07/21/2022 7:48 AM EST Height 165.1 cm (5' 5 ) 07/17/2022 11:27 AM EST Body Mass Index 27.71 07/17/2022 11:27 AM EST Plan of Treatment Not on file Medical Devices Implanted Type Area Lactation Coordinator Device Identifier Shelf Expiration Date Model / Serial / Lot Mesh St Phasix 7x10cm Rect [id number] - [id number] Implanted:Qty : 1 on 07/21/2022 by Donato Allen MD at [facility] IMPLANTS N/A: Abdomen CR BARD:DAVOL 11/30/2023 [id number] / / [id number] Insurance MEDICARE PART A B Advance Directives For more information, please contact: [phone] Documents on File Type Date Recorded Patient Electric Arc Furnace Operator Expl anation Advance Directives 07/21/2022 * Full Code (Latest Code Status on File) Date Activated Date Inactivated Comments 07/21/2022 6:58 AM 07/24/2022 7:18 PM Care Teams Automatic Embroidery Machine Tender Relationship Specialty Start Date End Date [facility], Provider Not In The System, [place] [address] PCP - General 07/17/22
--- OUTSIDE RECORDS SUMMARY | 2025-01-02 09:19 | XMS_ITS | Clinical Summary ---
Author Organization [employer] ([place], [place], [place], [place]) Address [address] [place] [address] Care Team Providers Care Sleeping Room Cleaner Name Role Phone [facility], Provider Not In The System Primary Care [...] ventricular rate of 91 beats per minute, WI interval of 164 ms, and QRS duration [...] Date [place] rded Speak language other than Puerto Rican at home Not on file 07/24/2023 Want [...] 07/17/2022 11:27 AM EST Plan of Treatment Health Maintenance Due Date Last Done Comments Medicare Initial AWV G0438 CT Colonography 1950 Colonoscopy 1950 Colorectal Cancer Screening 1950 DXA SCAN 1950 FOBT/FIT 1950 Fit-DNA (Cologuard) 1950 Sigmoidoscopy 1950 Depression Screening (12+) 1961 Hepatitis C Screening 1967 Pneumococcal 50+ years (1 of 1 - PCV) 1999 Shingles Vaccine (Zoster) (1 of 2) 1999 DTAP/TDAP/TD VACCINES (2 - Td or Tdap) 09/08/2006 Tobacco Cessation Counseling and Screening (12+) 07/2107/21/2022 COVID-19 VACCINE ( - season) 2024 Respiratory Syncytial Virus (RSV) Adult or (1 - 1-dose 75+ series) 2024 Falls Risk Screening 07/05/2024 Influenza Vaccine (Season Ended) 2025 04/01/20 22 Medical Devices Implanted Type Area Blood Bank Manager Device Identifier Shelf Expiration Date Model / Serial / Lot Mesh St Phasix 7x10cm Rect [id number] - [id number] Implanted:Qty : 1 on 07/21/2022 by Donato Allen MD at [facility] IMPLANTS N/A: Abdomen CR BARD:DAVOL 11/30/2023 [id number] / / [id number] Insurance MEDICARE [place] [address] [place] [address] Advance Directives For more information, please contact: [phone] Documents on File Type Date Recorded Patient Intervention Nurse Expl anation Advance Directives 07/21/2022 * Full Code (Latest Code Status on File) Date Activated Date Inactivated Comments 07/21/2022 6:58 AM 07/24/2022 7:18 PM Care Teams Sleeping Room Cleaner Relationship Specialty Start Date End Date [facility], Provider Not In The System, [place] [address] PCP - General 07/17/22
--- OUTSIDE RECORDS SUMMARY | 2025-01-02 09:19 | XMS_ITS | Patient Health Record ---
Author Organization [facility] Address [address] [place] [address] Care Team Providers Care Workplace Rehabilitation Officer Name Role Phone Javon Peter Primary Care Provider JAVON PETER Unavailable Unavaila ble Jerman Velez Unavailable [phone] Migration, Provider Unavailable Unavailable Allergies No Known Allergies Results Component Value Reference Range Notes M-PHA INR Fingerstick Reviewed date:11/08/2024 01:45:31 PM Interpretation: Performing Lab: Notes/Report: POCINRFS 2.2 0.9-1.1 Results sent to: Javon Peter APRN Pharmacist recommendation for Warfarin therapy is: PATIENT INR 2.2 TODAY VIA FINGERSTICK. RECOMMENDED PATIENT CONTINUE WITH WARFARIN 2.5 MG DAILY AT THIS TIME. FOR DETAILED INFORMATION-PLEASE REVIEW PROGRESS NOTE IN THE ASSESSMENTS AND ANTICOAGULATION CLINIC SECTION ANTICOAGULATION CLINIC IN PCI/CLINICAL REVIEW INDICATION INR RANGE THERAPY FOR DVT, PE, ATRIAL FIB; 2.0 - 3.0 PROPHYLAXIS FOR VTE THERAPY FOR MECHANICAL HEART 2.5 - 3.5 VALVE; PREVENTION OF SYSTEMIC EMBOLISM SECONDARY TO AMI HEMOGLOBIN A1c (496) Reviewed date:05/01/2024 08:57:08 AM Interpretation: Performing Lab:RADHA, [facility] Skxi4269 [facility], Tino ColemanCvsbUN[address] Kuldeep Tejeda Notes/Report: NON-FASTING; NON-FASTING; NON-FASTING HEMOGLOBIN A1c 6.6 <5.7 % of total Hgb For someone without known diabetes, a hemoglobin A1c value of 6.5% or greater indicates that they may have diabetes and this should be confirmed with a follow-up test. For someone with known diabetes, a value <7% indicates that their diabetes is well controlled and a value greater than or equal to 7% indicates suboptimal control. A1c targets should be individualized based on duration of diabetes, age, comorbid conditions, and other considerations. Currently, no consensus exists regarding use of hemoglobin A1c for diagnosis of diabetes for children. BASIC METABOLIC PANEL (84779 ) Reviewed date:05/01/2024 08:57:08 AM Interpretation: Performing Lab:CB, [facility] [id number] [facility], [facility] MinnesotaSazhEC[address] Kuldeep Tejeda Notes/Report: NON-FASTING; NON-FASTING; NON-FASTING GLUCOSE 83 65-99 mg/dL Fasting reference interval UREA NITROGEN (BUN) 18 7-25 mg/dL CREATININE 0.82 0.60-1.00 mg/dL EGFR 75 > OR = 60 mL/min/1.73m2 BUN/CREATININE RATIO SEE NOTE: 6-22 (calc) Not Reported: BUN and Creatinine are within reference range. SODIUM 143 135-146 mmol/L POTASSIUM 4.6 3.5-5.3 mmol/L CHLORIDE 104 98-110 mmol/L CARBON DIOXIDE 29 20-32 mmol/L CALCIUM 10.0 8.6-10.4 mg/dL M-PHA INR Fingerstick Reviewed date:06/05/2024 05:02:53 PM Interpretation: Performing Lab: Notes/Report: POCINRFS 2.6 0.9-1.1 Results sent to: Javon Peter APRN Pharmacist recommendation for Warfarin therapy is: PATIENT INR 2.6 TODAY VIA FINGERSTICK. RECOMMENDED PATIENT CONTINUE WITH WARFARIN 2.5 MG DAILY AT THIS TIME. FOR DETAILED INFORMATION-PLEASE REVIEW PROGRESS NOTE IN THE ASSESSMENTS AND ANTICOAGULATION CLINIC SECTION ANTICOAGULATION CLINIC IN PCI/CLINICAL REVIEW INDICATION INR RANGE THERAPY FOR DVT, PE, ATRIAL FIB; 2.0 - 3.0 PROPHYLAXIS FOR VTE THERAPY FOR MECHANICAL HEART 2.5 - 3.5 VALVE; PREVENTION OF SYSTEMIC EMBOLISM SECONDARY TO AMI M-PHA INR Fingerstick Reviewed date:04/10/2024 12:55:59 PM Interpretation: Performing Lab: Notes/Report: POCINRFS 3.5 0.9-1.1 Results sent to: Javon Peter APRN Pharmacist recommendation for Warfarin therapy is: INR TODAY VIA FINGERSTICK IS 3.5. RECOMMEND PATIENT HOLD TOMORROW'S DOSE OF WARFARIN, THEN DECREASE WEEKLY DOSE TO 1.25MG / AND 2.5MG ALL OTHER DAYS. PATIENT WILL F/U IN 2 WEEKS. FOR DETAILED INFORMATION-PLEASE REVIEW PROGRESS NOTE IN THE ASSESSMENTS AND ANTICOAGULATION CLINIC SECTION ANTICOAGULATION CLINIC IN PCI/CLINICAL REVIEW INDICATION INR RANGE THERAPY FOR DVT, PE, ATRIAL FIB; 2.0 - 3.0 PROPHYLAXIS FOR VTE THERAPY FOR MECHANICAL HEART 2.5 - 3.5 VALVE; PREVENTION OF SYSTEMIC EMBOLISM SECONDARY TO AMI M-PHA INR Fingerstick Reviewed date:02/01/2024 01:12:22 PM Interpretation: Performing Lab: Notes/Report: POCINRFS 2.3 0.9-1.1 Results sent to: Javon Peter APRN Pharmacist recommendation for Warfarin therapy is: PATIENT INR 2.3 TODAY VIA FINGERSTICK. RECOMMENDED PATIENT CONTINUE WITH WARFARIN 2.5 MG DAILY. FOR DETAILED INFORMATION-PLEASE REVIEW PROGRESS NOTE IN THE ASSESSMENTS AND ANTICOAGULATION CLINIC SECTION ANTICOAGULATION CLINIC IN PCI/CLINICAL REVIEW INDICATION INR RANGE THERAPY FOR DVT, PE, ATRIAL FIB; 2.0 - 3.0 PROPHYLAXIS FOR VTE THERAPY FOR MECHANICAL HEART 2.5 - 3.5 VALVE; PREVENTION OF SYSTEMIC EMBOLISM SECONDARY TO AMI Barium : Upper GI Series Reviewed date:05/15/2024 01:05:19 PM Interpretation: Performing Lab: Notes/Report: TSH W/REFLEX TO FT4 (81615) Reviewed date:05/01/2024 08:57:08 AM Interpretation: Performing Lab:CB, [facility] [id number] [facility], [facility] MinnesotaVtvnHL[address] Kuldeep Tejeda Notes/Report: NON-FASTING; NON-FASTING; NON-FASTING NON-FASTING; NON-FASTING; NON-FASTING TSH W/REFLEX TO FT4 0.12 0.40-4.50 mIU/L T4, FREE 1.0 0.8-1.8 ng/dL DEXA Hip and Spine - Screeni ng Reviewed date:02/10/2024 04:05:04 PM Interpretation: Performing Lab: Notes/Report: Mammogram : Bilateral Reviewed date:01/27/2024 08:17:25 AM Interpretation: Performing Lab: Notes/Report: X ray : Chest Reviewed date:10/04/2024 09:11:01 AM Interpretation: Performing Lab: Notes/Report: M-PHA INR Fingerstick Reviewed date:09/28/2024 01:50:02 PM Interpretation: Performing Lab: Notes/Report: POCINRFS 2.3 0.9-1.1 Results sent to: Javon Peter APRN Pharmacist recommendation for Warfarin therapy is: PATIENT INR 2.3 TODAY VIA FINGERSTICK. RECOMMENDED PATIENT CONTINUE WITH WARFARIN 2.5 MG DAILY. FOR DETAILED INFORMATION-PLEASE REVIEW PROGRESS NOTE IN THE ASSESSMENTS AND ANTICOAGULATION CLINIC SECTION ANTICOAGULATION CLINIC IN PCI/CLINICAL REVIEW INDICATION INR RANGE THERAPY FOR DVT, PE, ATRIAL FIB; 2.0 - 3.0 PROPHYLAXIS FOR VTE THERAPY FOR MECHANICAL HEART 2.5 - 3.5 VALVE; PREVENTION OF SYSTEMIC EMBOLISM SECONDARY TO AMI LIPID PANEL, STANDARD (7600) Reviewed date:10/04/2024 09:11:01 AM Interpretation: Performing Lab:RADHA, [facility] Vtdj7968 [facility], [place] YcjyQU[address] Kuldeep Tejeda Notes/Report: NON-FASTING; NON-FASTING; NON-FASTING; NON-FASTING; NON-FAST CHOLESTEROL, TOTAL 145 <200 mg/dL HDL CHOLESTEROL 60 > OR = 50 mg/dL TRIGLYCERIDES 187 <150 mg/dL LDL-CHOLESTEROL 59 Reference range: <100 Desirable range <100 mg/dL for primary prevention; <70 mg/dL for patients with CHD or diabetic patients with > or = 2 CHD risk factors. LDL-C is now calculated using the Barrington-Mark calculation, which is a validated novel method providing better accuracy than the Friedewald equation in the estimation of LDL-C. Barrington QURESHI et al. BAL. 2013;310(19): 1752-7491 (http://education.[employer].com/faq/BFY084) CHOL/HDLC RATIO 2.4 <5.0 (calc) NON HDL CHOLESTEROL 85 <130 mg/dL (calc) For patients with diabetes plus 1 major ASCVD risk factor, treating to a non-HDL-C goal of <100 mg/dL (LDL-C of <70 mg/dL) is considered a therapeutic option. COMPREHENSIVE METABOLIC YOSEF Ford (16992) Reviewed date:10/04/2024 09:11:01 AM Interpretation: Performing Lab:RADHA [facility] [place] Hirb7562 5BARz [employer] [facility], [facility] CenterVcfeTJ[address] Kuldeep Tejeda Notes/Report: NON-FASTING; NON-FASTING; NON-FASTING; NON-FASTING; NON-FAST GLUCOSE 135 65-99 mg/dL Fasting reference interval For someone without known diabetes, a glucose value >125 mg/dL indicates that they may have diabetes and this should be confirmed with a follow-up test. UREA NITROGEN (BUN) 16 7-25 mg/dL CREATININE 0.70 0.60-1.00 mg/dL EGFR 90 > OR = 60 mL/min/1.73m2 BUN/CREATININE RATIO SEE NOTE: 6-22 (calc) Not Reported: BUN and Creatinine are within reference range. SODIUM 140 135-146 mmol/L POTASSIUM 4.4 3.5-5.3 mmol/L CHLORIDE 101 98-110 mmol/L CARBON DIOXIDE 29 20-32 mmol/L CALCIUM 10.4 8.6-10.4 mg/dL PROTEIN, TOTAL 6.8 6.1-8.1 g/dL ALBUMIN 4.5 3.6-5.1 g/dL GLOBULIN 2.3 1.9-3.7 g/dL (calc) ALBUMIN/GLOBULIN RATIO 2.0 1.0-2.5 (calc) BILIRUBIN, TOTAL 0.6 0.2-1.2 mg/dL ALKALINE PHOSPHATASE 122 37-153 U/L AST 18 10-35 U/L ALT 18 6-29 U/L MAGNESIUM (622) Reviewed date:10/03/2024 12:47:31 PM Interpretation: Performing Lab:RADHA [employer] [place] [id number] 5BAR[address] [employer] [facility], [facility] CenterYmgyQV[address] Kuldeep Tejeda Notes/Report: NON-FASTING; NON-FASTING; NON-FASTING; NON-FASTING; NON-FAST MAGNESIUM 2.1 1.5-2.5 mg/dL CBC (INCLUDES DIFF/PLT) (639 9) Reviewed date:10/04/2024 09:11:01 AM Interpretation: Performing Lab:RADHA [employer] [id number] 5BARz [employer], [facility] CenterVrzvQU[address] Kuldeep Tejeda Notes/Report: NON-FASTING; NON-FASTING; NON-FASTING; NON-FASTING; NON-FAST WHITE BLOOD CELL COUNT 8.7 3.8-10.8 Thousand/ uL RED BLOOD CELL COUNT 5.32 3.80-5.10 Million/uL HEMOGLOBIN 15.7 11.7-15.5 g/dL HEMATOCRIT 48.5 35.0-45.0 % MCV 91.2 80.0-100.0 fL MCH 29.5 27.0-33.0 pg MCHC 32.4 32.0-36.0 g/dL For adults, a slight decrease in the calculated MCHC value (in the range of 30 to 32 g/dL) is most likely not clinically significant; however, it should be interpreted with caution in correlation with other red cell parameters and the patient's clinical condition. RDW 11.8 11.0-15.0 % PLATELET COUNT 301 140-400 Thousand/uL MPV 11.1 7.5-12.5 fL ABSOLUTE NEUTROPHILS 6316 2169-9089 cells/uL ABSOLUTE LYMPHOCYTES 1751 078-6053 cells/uL ABSOLUTE MONOCYTES 539 200-950 cells/uL ABSOLUTE EOSINOPHILS 113 15-500 cells/uL ABSOLUTE BASOPHILS 52 0-200 cells/uL NEUTROPHILS 72.6 LYMPHOCYTES 19.3 MONOCYTES 6.2 EOSINOPHILS 1.3 BASOPHILS 0.6 HEMOGLOBIN A1c (496) Reviewed date:10/04/2024 09:11:01 AM Interpretation: Performing Lab:RADHA [employer] Kesslere1355 [facility] Kuldeep Tejeda Notes/Report: NON-FASTING; NON-FASTING; NON-FASTING; NON-FASTING; NON-FAST HEMOGLOBIN A1c 7.2 <5.7 % of total Hgb For someone without known diabetes, a hemoglobin A1c value of 6.5% or greater indicates that they may have diabetes and this should be confirmed with a follow-up test. For someone with known diabetes, a value <7% indicates that their diabetes is well controlled and a value greater than or equal to 7% indicates suboptimal control. A1c targets should be individualized based on duration of diabetes, age, comorbid conditions, and other considerations. Currently, no consensus exists regarding use of hemoglobin A1c for diagnosis of diabetes for children. VITAMIN B12 (927) Reviewed date:09/30/2024 09:48:13 PM Interpretation: Performing Lab:RADHA [facility] [id number] [facility], [facility] CenterSjfvCX[address] Kuldeep Tejeda Notes/Report: NON-FASTING; NON-FASTING; NON-FASTING; NON-FASTING; NON-FAST VITAMIN B12 472 798-1127 pg/mL TSH W/REFLEX TO FT4 (22228) Reviewed date:10/04/2024 09:11:01 AM Interpretation: Performing Lab:CB, [facility] [id number] [facility] [facility], [facility] CenterIdwjGF[address] Kuldeep Tejeda Notes/Report: NON-FASTING; NON-FASTING; NON-FASTING; NON-FASTING; NON-FAST NON-FASTING; NON-FASTING; NON-FASTING; NON-FASTING; NON-FAST TSH W/REFLEX TO FT4 0.08 0.40-4.50 mIU/L T4, FREE 1.1 0.8-1.8 ng/dL M-PHA INR Fingerstick Reviewed date:03/14/2024 09:45:20 PM Interpretation: Performing Lab: Notes/Report: POCINRFS 3.1 0.9-1.1 Results sent to: Javon Peter APRN Pharmacist recommendation for Warfarin therapy is: PATIENT INR 3.1 TODAY VIA FINGERSTICK. RECOMMENDED PATIENT HOLD DOSE TOMORROW, THEN CONTINUE WITH WARFARIN 2.5 MG DAILY. WILL RECHECK IN 1 MONTH. SUSPECT WEIGHT LOSS IS LEADING TO INCREASE IN INR. INSTRUCTED PATIENT TO TRY TO EAT ADDITION GREEN VEGETABLES. FOR DETAILED INFORMATION-PLEASE REVIEW PROGRESS NOTE IN THE ASSESSMENTS AND ANTICOAGULATION CLINIC SECTION ANTICOAGULATION CLINIC IN PCI/CLINICAL REVIEW INDICATION INR RANGE THERAPY FOR DVT, PE, ATRIAL FIB; 2.0 - 3.0 PROPHYLAXIS FOR VTE THERAPY FOR MECHANICAL HEART 2.5 - 3.5 VALVE; PREVENTION OF SYSTEMIC EMBOLISM SECONDARY TO AMI M-PHA INR Fingerstick Reviewed date:04/24/2024 04:22:40 PM Interpretation: Performing Lab: Notes/Report: POCINRFS 2.7 0.9-1.1 Results sent to: Javon Peter APRN Pharmacist recommendation for Warfarin therapy is: PATIENT INR 2.7 TODAY VIA FINGERSTICK. RECOMMENDED PATIENT CONTINUE WITH WARFARIN 2.5 MG DAILY AT THIS TIME. FOR DETAILED INFORMATION-PLEASE REVIEW PROGRESS NOTE IN THE ASSESSMENTS AND ANTICOAGULATION CLINIC SECTION ANTICOAGULATION CLINIC IN PCI/CLINICAL REVIEW INDICATION INR RANGE THERAPY FOR DVT, PE, ATRIAL FIB; 2.0 - 3.0 PROPHYLAXIS FOR VTE THERAPY FOR MECHANICAL HEART 2.5 - 3.5 VALVE; PREVENTION OF SYSTEMIC EMBOLISM SECONDARY TO AMI M-PHA INR Fingerstick Reviewed date:08/31/2024 01:44:35 PM Interpretation: Performing Lab: Notes/Report: POCINRFS 1.5 0.9-1.1 Results sent to: Javon Peter APRN Pharmacist recommendation for Warfarin therapy is: PATIENT INR 1.5 TODAY VIA FINGERSTICK. PATIENT HAS BEEN STABLE AT THE CURRENT DOSE FOR SEVERAL MONTHS. RECOMMENDED PATIENT TAKE EXTRA 2.5 MG X2 DAYS, THEN RESUME 2.5 MG DAILY THEREAFTER. WILL ADJUST NEEDED AT FOLLOW UP IF INR IS NOT CORRECTED. FOR DETAILED INFORMATION-PLEASE REVIEW PROGRESS NOTE IN THE ASSESSMENTS AND ANTICOAGULATION CLINIC SECTION ANTICOAGULATION CLINIC IN PCI/CLINICAL REVIEW INDICATION INR RANGE THERAPY FOR DVT, PE, ATRIAL FIB; 2.0 - 3.0 PROPHYLAXIS FOR VTE THERAPY FOR MECHANICAL HEART 2.5 - 3.5 VALVE; PREVENTION OF SYSTEMIC EMBOLISM SECONDARY TO AMI CTA : Cardiac Reviewed date:02/01/2024 04:06:05 PM Interpretation: Performing Lab: Notes/Report: Reason For Referral Reason Orthopedic Referral for right knee deformity and pain Referral Organization [facility] ROHINI XIE Referring Provider First Name Javon Referring Provider Last Name Brittani Referring Provider [facility] Referred Provider Specialty Orthopedic S urgery Referral Priority Routine Reason Orthopedics for righ t-sided knee evaluation for pain/valgus deformity Diagnosis 1 Acute pain of right knee (M25.561) Referral Organization [facility] ROHINI MARY Referring Provider First Name Jerman Referring Provider Last Name Agustin Referring Provider Speciality Internal M edicine Referred Provider Specialty Orthopedic S urgery General Notes Hilda Goodman 2023 02:16:25 PM >Referral sent to [facility]- Dr. Segura Referral Priority Routine Reason CCTA Referral Organization [facility] ROHINI XIE Referring Provider First Name Javon Referring Provider Last Name Brittani Referring Provider [facility] ctice Referral Priority Routine Referral Appointment Date 01/31/2024 Reason Barium Swallow UGI Diagnosis 1 Dyspepsia (R10.13) Referral Organization [facility] ROHINI XIE Referring Provider First Name Javon Referring Provider Last Name Brittani Referring Provider Speciality Family Pra ctice Referred Organization [facility] Referred Address [address] [place], [place],[address],[place] Referred Provider Specialty Diagnostic R adiology General Notes Hilda Goodman 2023 02:28:26 PM > Referral Priority Routine Medications Medication SIG (Take, Route, Frequency, Duration) Notes Start Date End Date Status methIMAzole 10 mg TAKE ONE TABLET BY MOUTH ONCE A DAY; Duration: 30 Active metFORMIN HCl 500 mg TAKE ONE TABLET BY MOUTH 2 TIMES A DAY; Duration: 30 Active Atorvastatin Calcium 40 mg TAKE ONE TABLET BY MOUTH ONCE A DAY; Duration: 30 Active Century - 1 tab(s) orally once a day Active Warfarin Sodium 2.5 mg TAKE ONE TABLET BY MOUTH ONCE A DAY; Duration: 30 Active Famotidine 40 MG 1 tablet Orally Once a day; Duration: 90 days 11/04/2024 Active Calcium 600 + D 600 MG-20 MCG 1 TAB(S) ORALLY ONCE A DAY *Please review and pick correct strength-formulatio n from Tosk options. If intended option is not shown, discontinue and re-order from Quick Search* Active Immunizations Vaccine Route Administration Date Status Comme nts Arexvy IM Intramuscular 12/23/2023 Administered Social History Tobacco Use: Social History Observation Description Date Details (start date - stop date) Former Smoker NA - NA Smoking: Question Answer Notes Are you a: former smoker Problems Problem Type SNOMED Code ICD Code Onset Dates Problem Status W/U Status Risk Notes Problem Murmur (655904026) Murmur (R01.1) Active confir med Problem Hyperlipidemia (19297291) Other and unspecified hyperlipidemia (E78.5) Active confirmed Problem Hyperthyroidism (35896510) Hyperthyroidism (E05.90) Active confirmed Problem Overactive urinary bladder (disorder) (144868970) OAB (overactive bladder) (N32.81) Active confirmed Problem Use of anticoagulation (853713015) Chronic anticoagulation (Z79.01) Active confirmed Problem Type II diabetes mellitus without complication (447931488) Type 2 diabetes mellitus without complication, without long-term current use of insulin (E11.9) Active confirmed Problem Constipation (23110338) Unspecified constipation (K59.00) Active confirmed Problem Type II diabetes mellitus without complication (681966356) New onset type 2 diabetes mellitus (E11.9) Active confirmed Problem Chronic deep venous thrombosis of right lower extremity (disorder) (133338827632308) Chronic deep vein thrombosis (DVT) of right lower extremity, unspecified vein (I82.501) Active confirmed Vital Signs Heart Rate 72 /min 11/08/2024 Temperature 97.8 degrees Fahrenheit 11/08/2024 Blood pressure diastolic 88 mm Hg 11/08/2024 Height 64.75 in 11/08/2024 Blood pressure systolic 138 mm Hg 11/08/2024 Weight 158.8 lbs 11/08/2024 BMI 26.63 kg/m2 11/08/2024 Encounters Encounter Location Date Provider Diagnosis [facility] [address] [place] [address] 10/07/2024 Provider Migration [facility] [address] [place] [address] 01/12/2024 Jerman Velez Acute pain of right knee M25.561 [facility] [address] [place] [address] 01/27/2024 Javon Brittani New onset type 2 diabetes mellitus E11.9 ; Abnormal stress test R94.39 and Pain, joint, knee, right M25.561 [facility] [address] [place] [address] 04/27/2024 Javon Brittani Recurrent deep vein thrombosis (DVT) I82.409 ; Type 2 diabetes mellitus without complication, without long-term current use of insulin E11.9 ; Hyperthyroidism E05.90 and Dyspepsia R10.13 [facility] [address] [place] [address] 07/20/2024 [facility] Acute non-recurrent maxillary sinusitis J01.00 [facility] [address] [place] [address] 09/28/2024 [facility] Type 2 diabetes mellitus without complication, without long-term current use of insulin E11.9 ; Recurrent deep vein thrombosis (DVT) I82.409 ; Hyperthyroidism E05.90 ; Malaise R53.81 and SOB (shortness of breath) R06.02 [facility] [address] [facility] [address] [place], [place] [address] 11/08/2024 Jerman Velez Chronic deep vein thrombosis (DVT) of right lower extremity, unspecified vein I82.501 and Pulmonary embolism, unspecified chronicity, unspecified pulmonary embolism type, unspecified whether acute cor pulmonale present I26.99 [facility] [address] [facility] [address] [place] [address] 01/18/2024 [facility] Breast cancer screen ing other than mammogram Z12.39 and Asymptomatic menopausal state Z78.0 [facility] [address] [facility] [address] [place], [place] [address] 01/18/2024 [facility] Dyspnea on exertion R06.09 ; Chest pain R07.9 ; Murmur R01.1 and Abnormal EKG R94.31 [facility] [address] [facility] [address] [place], [place] [address] 01/27/2024 [facility] [address] [facility] [address] [place], [place] [address] 02/01/2024 [facility] [address] [facility] [address] [place], [place] [address] 04/27/2024 [facility] Dyspepsia R10.13 [facility] [address] [facility] [address] [place], [place] [address] 05/15/2024 [facility] [address] [facility] [address] [place], [place] [address] 07/13/2024 [facility] History of DVT of lo wer extremity Z86.718 [facility] [address] [facility] [address] [place], [place] [address] 11/04/2024 [facility] Assessments Encounter Date Diagnosis (ICD Code) Assessment Notes Treatment Notes Treatment Clinical Notes Section Notes 01/18/2024 Breast cancer screening other than mammogram (ICD-10 - Z12.39) 01/12/2024 Acute pain of right knee (ICD-10 - M25.561) Due to patient's pain level and deformity, a knee injection will most likely offer little relief. Referral to an orthopedist for potential knee replacement. Patient would like to avoid Dr. Gonsalves. 01/18/2024 Dyspnea on exertion (ICD-10 - R06.09) 01/27/2024 Abnormal stress test (ICD-10 - R94.39) CCTA pending 01/27/2024 New onset type 2 diabetes mellitus (ICD-10 - E11.9) Continue metformin twice daily, dietary changes and we will get her a glucometer so that she can monitor her glucose periodically. A1c again in 3 to 4 months, follow-up sooner with any concerns 04/27/2024 Type 2 diabetes mellitus without complication, without long-term current use of insulin (ICD-10 - E11.9) Update labs today as noted. I encouraged her to bring her glucometer by the office so we can show her how to use this correctly. Continue dietary changes, has done an excellent job with weight loss. 04/27/2024 Recurrent deep vein thrombosis (DVT) (ICD-10 - I82.409) Continue warfarin, [facility] Coumadin clinic for monitoring 04/27/2024 Dyspepsia (ICD-10 - R10.13) 07/13/2024 History of DVT of lower extremity (ICD-10 - Z86.718) 07/20/2024 Acute non-recurrent maxillary sinusitis (ICD-10 - J01.00) Discussed the etiology and expected course of acute sinusitis. Discussed the rationale for antibiotics use and the importance of completing the Augmentin prescription as prescribed. Discussed supportive care with antihistamines and appropriate decongestants. Discussed the signs and symptoms of worsening infection that may indicate need for reassessment in clinic/ED. 09/28/2024 Type 2 diabetes mellitus without complication, without long-term current use of insulin (ICD-10 - E11.9) Update labs today as noted. Continue metformin and dietary changes, has done an excellent job with weight loss. 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 -would reccomend Pt remain on warfarin pre-operatively, will need a lovenox bridge which we will discuss w/coumadin clinic/pharmacy -RTC 3 months for fup on chronic medical conditions 11/08/2024 Pulmonary embolism, unspecified chronicity, unspecified pulmonary embolism type, unspecified whether acute cor pulmonale present (ICD-10 - I26.99) -Pt reportin hx of PE in association w/DVTs as above 09/28/2024 Hyperthyroidism (ICD-10 - E05.90) continue methimazole 04/27/2024 Hyperthyroidism (ICD-10 - E05.90) continue methimazole 01/27/2024 Pain, joint, knee, right (ICD-10 - M25.561) has appt to consult with orthopedics 01/18/2024 Asymptomatic menopausal state (ICD-10 - Z78.0) 01/18/2024 Chest pain (ICD-10 - R07.9) 01/18/2024 Murmur (ICD-10 - R01.1) 04/27/2024 Dyspepsia (ICD-10 - R10.13) Recommend continue PPI therapy but we will order a barium swallow to evaluate esophageal function and severity of reflux 09/28/2024 Malaise (ICD-10 - R53.81) likely due to incontinence, bladder prolapse, nocturia. has FU with [facility] to review options 09/28/2024 SOB (shortness of breath) (ICD-10 - R06.02) likely multifactoral.. .will need cardiac clearance if she does opt for hysterectomy 01/18/2024 Abnormal EKG (ICD-10 - R94.31) Plan Of Treatment Pending Test Test Name Order Date FERRITIN (457) 12/23/2023 Next Appt Details Provider Name:Javon Carrillo ce, 01/02/2025 10:15:00 AM, [address] [place] [address], [address], [place], [address], Provider Name:Javon Ford Lorena flores, 01/11/2025 11:00:00 AM, [address], [address], [place], [address], Insurance Providers Payer Name Payer Address Payer Phone Subscriber Number Group Number Insured Name Patient Relationship to Insured Coverage Start Date Coverage End Date [place] [address] [place] [place] [address] [id number] Kim Soria Self - patient is the insured [place] [facility] [address] [place] [address] [phone] [id number] Kim Soria Self - patient is the insured [id number] [place] [address] ACL Kim Soria Self - patient is the insured Medical (General) History Medical History History ICD Code Hyperthyroidism HLD DVT/PT on warfarin Degenerative arthritis Heart murmur Rt Knee Arthritis Diabetes Mellitus Surgical History Surgery Date(Month/Year) hernia repair tubal ligation cataract removal
--- OUTSIDE RECORDS SUMMARY | 2025-01-02 09:21 | XMS_ITS | Data Portability ---
Author Organization [facility] TONY GastonS [facility] Address [address] [facility] [address] [place] [address] Care Team Providers Care Note Teller Name Role Phone MITCHELL GUILLERMINA Primary Care Provider JAKE LLAMAS General Surgeon [...] is a reasonable surgical candidate. She is Zoroastrianism and would decline blood transfusion. We would [...] or treatments. Of particular note she is Zoroastrianism and refuses blood transfusion. We discussed that bleeding risk with this operation is quite low however certainly a possibility with any operation. We will have her hold warfarin for at least five days preoperatively. When convenient we will proceed with laparoscopic paraesophageal hernia repair with completion EGD and possible laparoscopic cholecystectomy. This would occur at [facility] after preoperative anesthesia evaluation and clearance. Not [...] Not available 08/15/2022 10:52:54 09/11/2022 09/11/2022 72-year-old beverly barros who had laparoscopic paraesophageal [...] contr ast PO [place] [facility] [address] [facility] [place] [address] Patien t Name: KIM VIERA RD Patien t : 1949 Patien t 32 Orderi ng Provid er: MONTSE LLAMAS EXAM DATE: 2021 EXAM: RF UGI W AIR CONTRA ST [facility] AL INFORM ATION: Hiatus hernia . Shortn ess of breath . TECHNI QUE: A customer resolution specialist view of the abdome n was obtain [...] ment for reflux . FINDIN GS: KUB METAL ANNEALER: Map Plotter view shows no abnorm al intest inal gas patter n or eviden ce of free air. ESOPHA JUORDAN: Esopha jourdan is normal in outlin e, [...] Matt Robledo MD on 022 5:01 PM [facility] [address], [address], 04/10/2022 07:46:14 Result Notes Documentation Provider Name and Address Organization Details Recorded Time Xr, Abdomen + Rf, Upper Gastrointestinal Tract, W/ Air, W/ Contrast Po : [address] [address] Patient Name: KIM DIAZ Patient : 1950 Patient Ordering Provider: JAKE LLAMAS EXAM DATE: 04/09/2022 EXAM: RF UGI W AIR CONTRAST W [facility] CLINICAL INFORMATION: Hiatus hernia. Shortness of breath. TECHNIQUE: A customer resolution specialist view of the abdomen was obtained. Multiple double contrast images of various parts of the esophagus, stomach and duodenum were obtained using gas crystals and high-density barium suspension. This was followed by multiple prone images of the esophagus during swallowing and assessment for reflux. FINDINGS: KUB METAL ANNEALER: Map Plotter view shows no abnormal intestinal gas pattern or evidence of free air. ESOPHAGUS: Esophagus is normal in outline, mucosal pattern and caliber. Esophageal motility is normal with a normal peristaltic stripping wave and secondary peristaltic waves. No tertiary waves are noted. STOMACH: There is a large mixed type I and type II hiatus hernia containing the fundus of the stomach. Body and antrum of the stomach are normal in distensibility, outline and mucosal outline. No mass or ulcer is seen. DUODENUM: Duodenal bulb and loop are normal in distensibility, outline and mucosal pattern. No mass or ulcer is seen. ASSESSMENT FOR REFLUX: Moderate gastroesophageal reflux is noted. IMPRESSION: 1. Large mixed high quadrant type II hiatus hernia containing the fundus of the stomach. 2. No obvious evidence of esophageal shortening. 3. Moderate gastroesophageal reflux. Interpreted By: Leopoldo Robledo MD LLAMAS MD [address] [place] [address], [phone], [facility] 04/10/2022 07:46:14 Problems Name Problem SNOMED Code Status Onset Date Resolution Date Notes Provider Name and Address Organization Details Recorded Time Disorder of thyroid gland 24446643 Active 2021 Cristina Perkins [facility] 2 10:39:49 Diverticulitis 212625691 Active 2021 Cristina Perkins [facility] 2 10:40:03 Dyspnea 037144813 Active 2021 Cristina Maddie [facility] 2 10:43:21 Chest pain 82098743 [facility] 2 10:43:37 Problem Notes None recorded. Procedures Surgical History Date Name Laterality Status Provider Name and Address Organization Details Recorded Time extraction of cataract completed Cristina Maddie [facility] 03/27/2022 10:41:59 repair of paraesophageal diaphragmatic hernia completed Demi Rutherford [facility] 08/14/2022 11:29:10 Imaging Results None recorded. Procedure Notes None recorded. Medical Equipment None [...] Available Not Available Vitals Date Recorded Body height Heart rate Body mass index (BMI) Body weight Systolic blood pressure Diastolic blood pressure Provider Name and Address Organization Details Last Updated DateTime 3 167.64 cm 71 /min 25.9 kg/m2 71299.5 g 126 mm[Hg] 75 mm[Hg] Demi Rutherford [facility] 3 11:27:40 Date Recorded Body height Body mass index (BMI) Body weight Heart rate Systolic blood pressure Diastolic blood pressure Provider Name and Address Organization Details Last Updated DateTime 3 167.64 cm 25.7 kg/m2 22145.1 9 g 74 /min 146 mm[Hg] 99 mm[Hg] Cristina [facility] 3 09:30:03 Date Recorded Body weight Body mass index (BMI) Body height Heart rate Systolic blood pressure Diastolic blood pressure Provider Name and Address Organization Details Last Updated DateTime 2 42423.0 2 g 24.9 kg/m2 167.64 cm 69 /min 159 mm[Hg] 84 mm[Hg] [facility] 2 10:33:58 Date Recorded Body height Body mass index (BMI) Body weight Heart rate Systolic blood pressure Diastolic blood pressure Provider Name and Address Organization Details Last Updated DateTime 2 167.64 cm 27.4 kg/m2 62950.7 g 71 /min 118 mm[Hg] 79 mm[Hg] [facility] 2 10:02:52 Social History Question Answer Notes LastModified by [employer] Details LastModified Time Tobacco Smoking Status Former Smoker Demi Rutherford [facility] 08/14/2022 11:28:55 Have You Recently Traveled Abroad? No simpson general Information not available 03/27/2022 Sex: Unknown Functional Status Question Answer Note LastModified by [employer] Details LastModified Time Do you use any illicit or recreational drugs? No Information not available 03/27/2022 What is your level of alcohol consumption? None simpson general Information not available 03/27/2022 Mental Status None recorded. Family History Relationship [...] SNOMED-CT Code Diagnosis ICD10 Code Diagnosis Note [id number] JAKE LLAMAS [place] [address] 03/27/2022 10:18:32 03/31/2022 15:33:20 Paraesophageal hernia 7528226 K44.9 [id number] JAKE LLAMAS MD SURGERY SCHEDULE [address] [place] [address] 04/13/2022 09:55:13 04/13/2022 09:56:04 Paraesophageal hernia 8900030 K44.9 [id number] JAKE LLAMAS MD GENERAL SURGERY [address] 05/01/2022 09:36:22 05/04/2022 12:41:27 Paraesophageal hernia 9928378 K44.9 Chronic cholecystitis 20 389042 K81.1 [id number] JAKE LLAMAS [place] [address] 08/14/2022 11:16:20 08/16/2022 04:07:55 Paraesophageal hernia 2762165 K44.9 [id number] JAKE LLAMAS MD GENERAL SURGERY [address] [address] 09/11/2022 09:23:38 09/12/2022 04:06:26 Paraesophageal hernia 7115546 K44.9 Health Concerns Section Related Observation LastModified by Organization Detai ls LastModified Time None Recorded Concern Status LastModified by Organization Details LastModified Time None Recorded Advance Directives Directive None Recorded Payers Insurance Date Sequence Insurance Name Policy Number Policy Farmer Covered Member ID Farmer Member ID Guarantor Name 09/08/2022 2 [employer] (MEDICARE SUPPLEMENT) Kim Diaz [id number] Kim Diaz 09/08/2022 1 [place] Kim Graytip [id number] Kim Kaplanalysha Notes Date Note Type Note Provider Name and Address Organization Details Recorded Time 03/27/2022 text/html 71-year-old femryan barros with long-standing known history of hiatal hernia. She has discomfort and pressure sensation in the upper chest along with some shortness of breath with exertion. She has mild dysphagia. No particular reflux or regurgitation. She has some early satiety. Surgical history includes tubal ligation many years ago. The symptoms prompted a visit to the emergency department at [facility]. She had CT that shows intrathoracic stomach. She takes Coumadin for history of DVT. She is Zoroastrianism and declines blood transfusion. JAKE LLAMAS MD [address] [place] [address], [phone], [facility] 03/27/2022 12:27:31 OBGyn Episode No OBEpisode recorded.
[2025-01-02 09:49] LABS: PHA INR Fingerstick 2.2 (0.9-1.1)
== END 2025-01-02 09:51 ==
LOC: ACC 09:16
PROVIDERS: PCP Nurse Practitioner Family; Visit Provider Nurse Practitioner Family
DX: Z79.01 Long term (current) use of anticoagulants (principal)
CPT/HCPCS: 85610; 99211; G0463

== ENCOUNTER 2025-01-03 11:12 | Outpatient (CLI) | payer MEDICARE, OTHER, SELFPAY ==
[2025-01-03 11:33] VITALS: BMI 23.5
[2025-01-03 12:13] LABS: Hematocrit 48.0 % (37.0-47.0); Hemoglobin 15.5 g/dL (12.2-16.2); Immature Granulocytes % 0.4 %; Mean Corpuscular HGB Conc 32.3 g/dL (31.8-35.4); Mean Corpuscular Hemoglobin 29.3 pg (27.0-31.2); Mean Corpuscular Volume 90.7 fl (81-99); Nucleated Red Blood Cells % 0 %; Platelet Count 238 K/mm3 (142-424); Red Blood Count 5.29 M/mm3 (4.20-5.40); Red Cell Distribution Width-SD 41.0 fL; White Blood Count 8.5 K/mm3 (4.8-10.8)
[2025-01-03 12:16] LABS: Chloride 97 mmol/L (98-107); Potassium 4.0 mmoL/L (3.5-5.1); Sodium 140 mmol/L (136-145)
[2025-01-03 12:19] LABS: Anion Gap 14.0 mEq/L (5-15); Blood Urea Nitrogen 15 mg/dl (7-17); Calcium 10.4 mg/dl (8.4-10.2); Carbon Dioxide 33 mmol/L (22.0-30.0); Creatinine Clearance Estimated 52 mL/min (50-200); Creatinine,Serum 0.70 mg/dl (0.52-1.04); Estimated Glomerular Filt Rate 82 ml/min (>60); GFR (African American) 99 ML/MIN (>60); Glucose 125 mg/dl (74-100)
[2025-01-03 13:24] LABS: Hemoglobin A1C 8.3 % (4.0-6.0)
== END 2025-01-03 23:59 | disposition home or self-care (01) ==
PROVIDERS: Nurse Practitioner Obstetrics & Gynecology; PCP Nurse Practitioner Family; Visit Provider Nurse Practitioner Family
DX: Z01.812 Encounter for preprocedural laboratory examination (principal); E11.9 Type 2 diabetes mellitus without complications
CPT/HCPCS: 80048; 82043; 82570; 83036; 85025

== ENCOUNTER 2025-01-10 06:20 | Observation (INO) | payer MEDICARE, OTHER, SELFPAY ==
[2025-01-04 13:54] VITALS: BMI 23.5
[2025-01-10] VITALS (23 sets, daily range): BP systolic 122–145; BP diastolic 61–86; PULSE 60–78; RESP 14–18; TEMP 36.1–36.8; O2SAT 92–98
[2025-01-10] MEDS: LACTATED RINGERS 1000ML 1,000 ML 25 ML IV (06:43)
[2025-01-10 06:49] LABS: POC Glucose,Bedside 128 (70-110)
--- NOTE | 2025-01-10 07:12 | EXP.ANES.CKL ---
[facility] Disclaimer: The information contained in this section may have been updated after the patient was seen, as this information can be updated by other users. 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 Hiatal hernia Urethral caruncle Surgical History History of surgery S/P hernia surgery Hx of cataract surgery Hx of tubal ligation Family History Other Cancer Heart attack Social History (Updated 01/10/25 @ 06:31 by Perla Peter RN) Smoking Status: Never smoker alcohol intake: never substance use type: denies use current occupational status: employed Travel in the last 8 weeks?: None caffeine: Yes [facility] Anesthesia Checklist Patient Identification Patient Identification: Arm Band and Verbal (Name & ) Structural Data Admitted From: Home Planned Operative Procedure/s: TVH, anterior repair Consent for Planned Operative Procedure(s) Verified: Yes Verified Documents: Surgical Consent NPO Status Verified Time NPO: 00:00 Chart Verification Results Verified: None Additional verifications Fingerstick Blood Glucose: 128 Anesthesia Reactions: No Hx Blood Transfusions: No (pt refuses blood products) Blood Transfusion Reaction: No Airway Assessment Mallampati Score:: Class II C-Spine Mobility Assessed: Yes TMJ Mobility Assessed: Yes Dentition: Good Dentition Neurological Assessment Level of Consciousness: Awake, Alert and Appropriate Hx Seizures: No Numbness or tingling in extremities: No Anesthesia Plan Anesthesia Risk discussed: Yes Anesthesia Plan: Verified ASA Class: II Anesthesia Type: General
[2025-01-10] MEDS: LIDOCAINE 1% W/EPI 1:100,000 20ML VIAL 20 ML ×2 (07:50)
--- NOTE | 2025-01-10 08:54 | HMH.PHAINT1 ---
Pharmacy Intervention Comments: MEDICATION RECONCILIATION COMPLETED ON PATIENT USING EXTERNAL FILL HISTORY FROM PHARMACY AND WARFARIN DOSE FROM ACC. -SILVANO MCCLELLAND, ABBYD
--- NOTE | 2025-01-10 09:22 | EXP.ANES.I ---
[facility] Anesthesia Record Part I Anesthesia Record I Intake, IV Amount: 900 Hydration: Adequate Estimated blood loss (mL): 150 Urine output (mL): 0 Blood Products used (#): none Blood Pressure: 143/86 SaO2: 95 Pulse Rate: 64 Airway Patency: Patent Respiratory Rate: 14 Temperature: 97.9 F Patient is:: Nasal O2, Stable and Somnolent Stable to PACU at:: 09:20
--- NOTE | 2025-01-10 09:29 | EXP.OP.NOTE ---
Date of procedure: 01/10/25 Pre-op Diagnosis:: Complete uterovaginal prolapse, cystocele, rectocele, enterocele Post-op Diagnosis:: Complete uterovaginal prolapse, cystocele, rectocele, enterocele, Procedure performed:: Vaginal hysterectomy, anterior repair, posterior repair, enterocele repair Surgeon:: Steven Rainey MD Computer Systems Administrator(s):: Dr. Gomez CLINICAL EDUCATION ASSISTANT:: Bautista Leon Anesthesia: GETA Estimated blood loss (mL): 150 Clinical Note:: She is a 74-year-old lady who complains of uterovaginal prolapse. We had tried a pessary but there was no perineal support and as a result of that the pessary fell out. She elected to have a vaginal hysterectomy, anterior repair, posterior repair and enterocele repair. The risks and benefits of surgery were discussed with the patient prior to surgery. She is a Adventist and made it clear that she would refuse any blood products. Operative findings:: She had complete prolapse of the uterus through the vagina. There was a large cystocele and small rectocele. There was an enterocele. The uterus itself was small and atrophic. The ovaries were atrophic. The tubes appeared normal. Operative note:: She was taken the operating room where general anesthesia was found to be adequate. She was prepped and draped in the normal sterile fashion in lithotomy position. A weighted speculum was placed in the vagina and the anterior and posterior lips of the cervix were grasped with Hartley tenaculum. I then injected approximately 20 cc of 1% Xylocaine with epinephrine circumferentially about the cervix. I then circumscribed the cervix with knife and dissected the posterior aspect of the vagina off the posterior uterus. I was not able to open into the posterior cul-de-sac so I elected to clamp cut and suture-ligated the left uterosacral ligament. This was tied and tagged. Similarly on the right side I clamped cut and suture-ligated, tagged the right uterosacral ligament. This was followed by the left cardinal ligament which was clamped cut and suture-ligated. I then clamped cut and suture-ligated the right uterosacral ligament. I then dissected off the anterior vaginal mucosa, identified the peritoneum and opened up with Metzenbaum scissors. I then placed a Lamar retractor through this defect. I then clamped across the utero-ovarian ligaments bilaterally. The uterus was cut away and sent to pathology. I then doubly suture-ligated each pedicle. The ovaries appeared extremely small and atrophic so I elected not to remove the ovaries and tubes. I then closed the posterior cuff using running 2-0 Vicryl suture in a locked fashion. I then placed Costa sutures using 0 PDS. I went through the posterior vaginal mucosa and into the peritoneal cavity. I then grasped the left uterosacral ligament and plicated across the posterior peritoneum. I then grasped the right uterosacral ligament and passed the suture through the peritoneum and vagina this was left to be tied at the end. I then placed a second Costa suture in a similar fashion just slightly above the first Costa suture. The peritoneum was then closed in a pursestring fashion starting anteriorly and using 2-0 PDS suture. This was tied. I then turned my attention to the anterior repair. I grasped the edges of the anterior mucosa with Aziza clamps and using Metzenbaum scissors I dissected off the vaginal mucosa to approximately 2 cm below the urethral orifice. I grasped the edges of the vaginal mucosa with Allis clamps as I went. Then using Metzenbaum scissors and blunt dissection I dissected the bladder off from the vaginal mucosa. This was performed bilaterally. I then placed 2-0 PDS sutures starting superiorly and performed a Rocío plication. I placed sutures in a hzvm-dv-hqat fashion from superior to inferior and left these sutures to be tied at the end. I then tied the individual sutures in the order in which they were placed. I removed a small amount of redundant vaginal mucosa and then closed the vaginal mucosa using running 2-0 Vicryl suture in a locked fashion. The vaginal cuff was then closed using running 0 Vicryl suture in a locked fashion from anterior to posterior and left to right. The Costa sutures were then tied in the order in which they were placed. I then performed a posterior repair by first grasping the vaginal mucosa at the vaginal orifice where the joseph from the weighted speculum were located. I made a V shaped incision into the perineum and then dissected off a small strip of vaginal mucosa from the posterior vaginal wall. I then started closing the vaginal mucosa with a 2-0 Vicryl suture. I then placed interrupted 2-0 Vicryl PDS sutures in a [id number] fashion from superior to inferior. These were then tied individually in the order in which they were placed. The vaginal mucosa was then closed using running 2-0 Vicryl suture in a locked fashion to the vaginal orifice. I then closed the deep tissues of the perineum using interrupted 2-0 PDS suture. The perineal skin was then closed with interrupted subcuticular 2-0 Vicryl suture. A Wang catheter was then placed in the bladder and clear urine was seen to flow. There was an area along the anterior vaginal mucosa that had some ooze and elected to place in erupted Vicryl suture here. After assuring hemostasis I then elected to place a small vaginal pack into the vagina. She tolerated the procedure well and was taken to the recovery room in excellent condition. All sponge, instrument and needle counts were correct. The estimated blood loss was less than 150 cc. Condition: stable Disposition: PACU Specimens:: Uterus Complications:: None
[2025-01-10 09:45] LABS: POC Glucose,Bedside 165 (70-110)
--- NOTE | 2025-01-10 09:50 | PC.NURSE ---
Report received from DINORA Cheung who received report from DINORA Eagle.
--- NOTE | 2025-01-10 10:04 | SUR.PHASEI ---
0948- detailed report called to carl henry in OB. OB nurse made aware of pt having vaginal packing and pt being Jehovah;s Witness. 0951- pt left in stable condition with Vita melton rn. VSS, dressings CDI, family at bedside.
--- NOTE | 2025-01-10 10:20 | PC.NURSE ---
Pt arrived to unit from PACU via bed and O.R. staff x2. Remains very drowsy still from anesthesia. She is accompanied by her . Scuds applied, IV LR hung, gown changed and vs started. Assessment completed. Lungs clear bilat very diminished in basis, FC anchored to bed and patent to bsd, yellow urine noted in drainage bag. No vaginal bleeding or spotting noted, vaginal packing in place. IV site (#20g rt hand) infusing well. Pt easily aroused to assess. Denies pain or discomfort at this time. Given ice water to drink, tolerated well.
[2025-01-10] MEDS: LACTATED RINGERS 1000ML 1,000 ML 125 ML IV (10:26)
[2025-01-10] MEDS: ACETAMINOPHEN 325MG TAB 650 MG PO ×3 (10:27→22:15)
[2025-01-10] MEDS: SODIUM CHLORIDE 0.9% 10ML FLUSH SYRINGE 10 ML IV (10:27)
--- NOTE | 2025-01-10 10:29 | P.PNANES_ITS ---
[facility] Anesthesia Record Part II Anesthesia Record Part II Discharge Time: 09:50 Destination: Obstetric PACU nurse assessment reviewed?: Yes Patient Condition:: Good Anesthesia Complications:: None Swallowing reflex intact?: Yes Airway Patency: Patent Cyanosis?: No Blood Pressure: 131/69 SaO2: 98 Respiratory Rate: 14 Pulse Rate: 67 Temperature: 97.9 F Mental Status: Alert & Oriented Pain level:: 0 Nausea and/or vomitting:: None Intake, IV Amount: 0 Hydration: Adequate
--- NOTE | 2025-01-10 12:40 | PC.NURSE ---
Pt given I/S with isntructions and importance of usage explained. Verbalizes understanding. Immediately uses and takes floating mechanism to the top as far as it can go.
--- NOTE | 2025-01-10 14:14 | PC.NURSE ---
Chicken salad sandwich and Jenelle Jovanna given. Tolerated well. Diet advanced to regular for dinner.
--- NOTE | 2025-01-10 16:15 | PC.NURSE ---
Afternoon assessment complete. Pt awake and in good spirits. She still denies pain or discomfort only rating it at a 1/10. Assisted up to rocking chair per pt's request. She complains of her tailbone bothering her (from a previous injury). Tolerated assistance up to chair well. Scuds disconnected for pt to ambulate to chair. Pillow placed in chair to help make more comfortable to tailbone. Call beltran in reach as well as bs table. VS wnl, lungs clear, (+) BS x4 quads, FC and vaginal packing remains in place at this time.
--- NOTE | 2025-01-10 18:53 | PC.NURSE ---
Assisted pt up the bathroom to attempt to have a bm. Partial bed linen change, gown change, trash emptied. Mesh panties and pad also placed on pt.
--- NOTE | 2025-01-10 19:05 | PC.NURSE ---
report recieved from Gisela Hsieh RN
--- NOTE | 2025-01-10 19:23 | PC.NURSE ---
Addendum entered by Deborah Hsieh RN 01/10/25 19:24: Report given to Taylor. Original Note: Report received from Chayo Hammonds.
--- NOTE | 2025-01-10 19:30 | PC.NURSE ---
Supervised patient walking from bathroom to bed. SCUDS applied. Call light within reach. No needs voiced at this time
[2025-01-10] MEDS: POLYETHYLENE GLYCOL 3350 17 GM PACKET PO (21:09)
[2025-01-10] MEDS: METFORMIN 500MG TABLET 500 MG PO (21:09)
[2025-01-10] MEDS: SENNOSIDES 8.6MG/DOCUSATE 50MG TABLET 1 TAB PO (21:09)
[2025-01-11 00:15] VITALS: BP 134/72; PULSE 88; RESP 18; TEMP 36.7; O2SAT 97
[2025-01-11] MEDS: ONDANSETRON 4MG/2ML VIAL 4 MG IV ×2 (00:48→14:14)
[2025-01-11] MEDS: OXYCODONE 5MG IMMEDIATE RELEASE TABLET 5 MG PO (00:49)
[2025-01-11 04:50] VITALS: BP 144/78; PULSE 84; RESP 18; TEMP 36.7; O2SAT 97
[2025-01-11 05:57] LABS: Hematocrit 41.5 % (37.0-47.0); Hemoglobin 13.2 g/dL (12.2-16.2); Immature Granulocytes % 0.6 %; Mean Corpuscular HGB Conc 31.8 g/dL (31.8-35.4); Mean Corpuscular Hemoglobin 28.8 pg (27.0-31.2); Mean Corpuscular Volume 90.6 fl (81-99); Nucleated Red Blood Cells % 0 %; Platelet Count 196 K/mm3 (142-424); Red Blood Count 4.58 M/mm3 (4.20-5.40); Red Cell Distribution Width-SD 40.2 fL; White Blood Count 12.5 K/mm3 (4.8-10.8)
[2025-01-11 06:11] LABS: INR 1.03 (0.9-1.1); Prothrombin Time 11.4 seconds (10.1-12.5)
[2025-01-11 06:25] LABS: Anion Gap 12.2 mEq/L (5-15); Blood Urea Nitrogen 14 mg/dl (7-17); Calcium 9.1 mg/dl (8.4-10.2); Carbon Dioxide 30 mmol/L (22.0-30.0); Chloride 100 mmol/L (98-107); Creatinine Clearance Estimated 52 mL/min (50-200); Creatinine,Serum 0.40 mg/dl (0.52-1.04); Estimated Glomerular Filt Rate 156 ml/min (>60); GFR (African American) 188 ML/MIN (>60); Glucose 210 mg/dl (74-100); Potassium 4.2 mmoL/L (3.5-5.1); Sodium 138 mmol/L (136-145)
[2025-01-11 08:20] VITALS: BP 131/73; PULSE 83; RESP 24; TEMP 36.5; O2SAT 93
[2025-01-11] MEDS: SENNOSIDES 8.6MG/DOCUSATE 50MG TABLET 1 TAB PO (08:22)
[2025-01-11] MEDS: METFORMIN 500MG TABLET 500 MG PO (08:23)
[2025-01-11] MEDS: POLYETHYLENE GLYCOL 3350 17 GM PACKET PO (08:23)
--- NOTE | 2025-01-11 11:30 | PC.NURSE ---
Pt. states I feel sick to my stomach, like I got to poop, but can't, I haven't gone since Wednesday. Nurse v/u offered ordered nausea medication, pt. declined, states, I've got my gingerale, that I'm sipping on. Pt. denies needs.
[2025-01-11] MEDS: BISACODYL 10MG SUPP 10 MG RC (13:34)
--- NOTE | 2025-01-11 15:30 | PC.NURSE ---
Pt. reports nausea a little better , Dr. Rainey in room discussing discharge plan. Pt. agreeable with discharge.
--- NOTE | 2025-01-11 16:25 | EXP.HP ---
History of Present Illness *Admission Date: 01/10/25 *Reason for visit:: Complete uterovaginal prolapse, cystocele, rectocele, enterocele *History of present illness: She is a 74-year-old lady who complains of uterovaginal prolapse. She was seen in the office and we did try a pessary. Unfortunately she had very little perineal support and as a result of that the pessary fell out. She requested a hysterectomy with anterior posterior repair. She had complete prolapse of the uterus through the introitus. She had a grade 4 cystocele. She had a grade 2 rectocele. She had poor perineal support. She is also a Zoroastrian and refused all blood products. [facility] Disclaimer: The information contained in this section may have been updated after the patient was seen, as this information can be updated by other users. 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 Hiatal hernia Urethral caruncle Surgical History History of surgery S/P hernia surgery Hx of cataract surgery Hx of tubal ligation Family History Heart attack Cancer Social History Smoking Status: Never smoker alcohol intake: never substance use type: denies use current occupational status: employed Travel in the last 8 weeks?: None caffeine: Yes Other Medical History Have you received the Flu Vaccine for this season: Yes Have you received the Pneumonia Vaccine: Yes Review of Systems Review of Systems Review of systems:: pertinent systems reviewed and negative unless documented below Meds Home Medications and Allergies Home Medications ?Medication ?Instructions ?Recorded ?Confirmed ?Type methimazole 10 mg tablet 10 mg PO DAILY 01/09/19 01/10/25 History calcium 500 mg (as 1 each PO DAILY 02/15/19 01/10/25 History carbonate)-vitamin D3 5 mcg (200 unit) tablet metformin 500 mg tablet 500 mg PO BID 01/31/24 01/10/25 History atorvastatin 40 mg tablet 40 mg PO DAILY 04/25/24 01/10/25 History warfarin 2.5 mg tablet 2.5 mg PO DAILY 04/25/24 01/10/25 History famotidine 40 mg tablet 40 mg PO DAILY 10/18/24 01/10/25 History diltiazem HCl 180 mg 180 mg PO DAILY 11/22/24 01/10/25 History capsule,extended release 24 hr enoxaparin 60 mg/0.6 mL 60 mg SQ BID 01/10/25 01/10/25 History subcutaneous syringe New Prescriptions to Start Prescriptions: Allergies Allergy/AdvReac Type Severity Reaction Status Date / Time No Known Allergies Allergy Verified 01/10/25 06:22 Exam Data for Last 24 hours Vital signs and Labs for Last 24 Hours: Temp Pulse Resp BP Pulse Ox O2 Del Method O2 Flow Rate 97.7 F 83 24 131/73 93 L Room Air 2 01/11/25 08:20 01/11/25 08:20 01/11/25 08:20 01/11/25 08:20 01/11/25 08:20 01/11/25 14:15 01/10/25 09:30 Laboratory Results - last 24 hr 01/11/25 05:07: WBC 12.5 H, RBC 4.58, Hgb 13.2, Hct 41.5, MCV 90.6, MCH 28.8, MCHC 31.8, RDW 12.2, Plt Count 196, MPV 10.5 H, Neut % (Auto) 85.8 H, Lymph % (Auto) 7.7 L, Rhea % (Auto) 5.8, Eos % (Auto) 0.0 L, Baso % (Auto) 0.1, Neut # (Auto) 10.8 H, Lymph # (Auto) 1.0, Rhea # (Auto) 0.7, Eos # (Auto) 0.0, Baso # (Auto) 0.0, PT 11.4, INR 1.03, Sodium 138, Potassium 4.2, Chloride 100, Carbon Dioxide 30, Anion Gap 12.2, BUN 14, Creatinine 0.40 L, Estimated Creat Clear 52, Estimated GFR 156, Est GFR ( Amer) 188, Glucose 210 H, Calcium 9.1 I & O for Last 24 hours: Intake & Output 01/09/25 01/10/25 01/11/2501/12/25 11:59 11:59 11:59 11:59 Intake Total 900 / 900 1252 / 1252 Output Total 3550 / 3550 100 / 100 Balance 900 / 900 -2298 / -2298 -100 / -100 Constitutional Constitutional: no acute distress *Routine HEENT Exam Head: Present normocephalic Eye: Present EOMI and PERRL ENT: Present mucous membranes moist *Routine Neck Exam Neck: Present supple; Absent lymphadenopathy *Routine Respiratory Exam Respiratory: Present CTA bilaterally *Routine Cardiovascular Exam Cardiovascular: Present RRR *Routine Abdominal Exam Abdominal: Present soft and normoactive bowel sounds; Absent tenderness *Routine Rectal Exam Rectal:: deferred *Routine Genitalia Exam Genitalia:: deferred *Routine Extremities Exam Extremities: Absent cyanosis, clubbing or edema *Routine Skin Exam Skin: Present warm; Absent rash *Routine Neurological Exam Neurological: Present alert and oriented X3 Assessment and Plan *Assessment and plan (1) Complete uterine prolapse: Status: Acute Category: Medical Code(s): N81.3 - Complete uterovaginal prolapse (2) Cystocele and rectocele with complete uterovaginal prolapse: Status: Acute Category: Medical Code(s): N81.3 - Complete uterovaginal prolapse (3) Vaginal enterocele: Status: Acute Category: Medical Code(s): N81.5 - Vaginal enterocele Plan 1. She is admitted for vaginal hysterectomy, anterior, posterior and enterocele repair.
--- NOTE | 2025-01-11 16:28 | P.DS_ITS ---
General Admission date:: 01/10/25 Discharge date: 01/11/25 HPI HPI HPI: She is a 74-year-old lady who complains of uterovaginal prolapse. She was seen in the office and we did try a pessary. Unfortunately she had very little perineal support and as a result of that the pessary fell out. She requested a hysterectomy with anterior posterior repair. She had complete prolapse of the uterus through the introitus. She had a grade 4 cystocele. She had a grade 2 rectocele. She had poor perineal support. She is also a Yarsanism and refused all blood products. Hospital Course Hospital Course Hospital Course: On January 10, 2025 she underwent a vaginal hysterectomy with anterior, posterior and enterocele repair with Costa suture. She has done well postoperatively and has remained afebrile throughout her hospitalization. She is eating and drinking and ambulating. She required very little pain medicine overnight. She did have vaginal packing and I remove that this morning. She had a catheter that was removed this morning and she has voided 300 cc. This morning she began having a little more discomfort and says she felt like she had to have a bowel movement. I had removed her vaginal packing at this point in time and I suspect it may be as a result of her posterior repair. We did give her a Dulcolax suppository and this seemed to produce a small amount of stool. She is passing gas. She has some nausea. We will discharge her home this afternoon to follow-up with me in 2 weeks time. She was given a prescription for Percocet 5/325 number 14 tablets. She was given a prescription for Zofran to take for nausea number 30 tablets she was given the usual instructions with respect to limiting her activity, driving and sexual activity. Her condition on discharge is stable and improved. Exam Data for Last 24 hours Vital signs and Labs for Last 24 Hours: Temp Pulse Resp BP Pulse Ox O2 Del Method O2 Flow Rate 97.7 F 83 24 131/73 93 L Room Air 2 01/11/25 08:20 01/11/25 08:20 01/11/25 08:20 01/11/25 08:20 01/11/25 08:20 01/11/25 14:15 01/10/25 09:30 Laboratory Results - last 24 hr 01/11/25 05:07: WBC 12.5 H, RBC 4.58, Hgb 13.2, Hct 41.5, MCV 90.6, MCH 28.8, MCHC 31.8, RDW 12.2, Plt Count 196, MPV 10.5 H, Neut % (Auto) 85.8 H, Lymph % (Auto) 7.7 L, [place] % (Auto) 5.8, Eos % (Auto) 0.0 L, Baso % (Auto) 0.1, Neut # (Auto) 10.8 H, Lymph # (Auto) 1.0, [place] # (Auto) 0.7, Eos # (Auto) 0.0, Baso # (Auto) 0.0, PT 11.4, INR 1.03, Sodium 138, Potassium 4.2, Chloride 100, Carbon Dioxide 30, Anion Gap 12.2, BUN 14, Creatinine 0.40 L, Estimated Creat Clear 52, Estimated GFR 156, Est GFR ( Amer) 188, Glucose 210 H, Calcium 9.1 I & O for Last 24 hours: Intake & Output 01/09/25 01/10/25 01/11/25 01/12/25 11:59 11:59 11:59 11:59 Intake Total 900 / 900 1252 / 1252 Output Total 3550 / 3550 100 / 100 Balance 900 / 900 -2298 / -2298 -100 / -100 Constitutional Constitutional: no acute distress *Routine HEENT Exam Head: Present normocephalic *Routine Respiratory Exam Respiratory: Present CTA bilaterally, normal respiratory effort and able to speak in complete sentences; Absent accessory muscle use *Routine Cardiovascular Exam Cardiovascular: Present RRR *Routine Abdominal Exam Abdominal: Present soft, normoactive bowel sounds and tenderness; Absent distended or guarding *Routine Rectal Exam Patient deferred: visual exam and digital exam Results Data Completed and Pending Labs on day of discharge: Labs from last 24 hours 01/11/25 05:07 WBC 12.5 H RBC 4.58 Hgb 13.2 Hct 41.5 MCV 90.6 MCH 28.8 MCHC 31.8 RDW 12.2 Plt Count 196 MPV 10.5 H Neut % (Auto) 85.8 H Lymph % (Auto) 7.7 L [place] % (Auto) 5.8 Eos % (Auto) 0.0 L Baso % (Auto) 0.1 Neut # (Auto) 10.8 H Lymph # (Auto) 1.0 [place] # (Auto) 0.7 Eos # (Auto) 0.0 Baso # (Auto) 0.0 PT 11.4 INR 1.03 Sodium 138 Potassium 4.2 Chloride 100 Carbon Dioxide 30 Anion Gap 12.2 BUN 14 Creatinine 0.40 L Estimated Creat Clear 52 Estimated GFR 156 Est GFR ( Amer) 188 Glucose 210 H Calcium 9.1 DS: Diagnosis Discharge Diagnosis (1) Complete uterine prolapse: Status: Acute Code(s): N81.3 - Complete uterovaginal prolapse (2) Cystocele and rectocele with complete uterovaginal prolapse: Status: Acute Code(s): N81.3 - Complete uterovaginal prolapse (3) Vaginal enterocele: Status: Acute Code(s): N81.5 - Vaginal enterocele Meds Home Medications and Allergies Home Medications ?Medication ?Instructions ?Recorded ?Confirmed ?Type methimazole 10 mg tablet 10 mg PO DAILY 01/09/1903/29 History calcium 500 mg (as 1 each PO DAILY 02/15/1903/29 History carbonate)-vitamin D3 5 mcg (200 unit) tablet metformin 500 mg tablet 500 mg PO BID 01/31/2401/10 History atorvastatin 40 mg tablet 40 mg PO DAILY 04/25/2403/29 History warfarin 2.5 mg tablet 2.5 mg PO DAILY 04/25/2403/29 History famotidine 40 mg tablet 40 mg PO DAILY 10/18/2403/29 History diltiazem HCl 180 mg 180 mg PO DAILY 11/22/2403/29 History capsule,extended release 24 hr enoxaparin 60 mg/0.6 mL 60 mg SQ BID 01/10/25 History subcutaneous syringe ondansetron 4 mg disintegrating 4 mg PO Q4H PRN Nausea And 01/11/25 Rx tablet Vomiting #30 tabs oxycodone-acetaminophen 5 mg-325 1 tab PO Q6H PRN pain #14 tabs 01/11/25 Rx mg tablet New Prescriptions to Start Prescriptions: ondansetron Steven Rainey oxycodone-acetaminophen Steven Rainey Allergies Allergy/AdvReac Type Severity Reaction Status Date / Time No Known Allergies Allergy Verified 01/10/25 06:22 Discharge Plan Disposition Patient Disposition: Home, Self-Care Follow up Plan Follow up with: Steven Rainey MD [Staff Physician, ACCOUNTING TUTOR] - 01/23/25 2:00 pm Prescriptions/Medication Reconciliation: New oxycodone-acetaminophen 5-325 mg tablet 1 tab PO Q6H PRN (Reason: pain) Qty: 14 0RF ondansetron 4 mg Tablet,Disintegrating 4 mg PO Q4H PRN (Reason: Nausea And Vomiting) Qty: 30 0RF Continued methimazole 10 mg tablet 10 mg PO DAILY diltiazem HCl 180 mg capsule,extended release 24hr 180 mg PO DAILY famotidine 40 mg tablet 40 mg PO DAILY atorvastatin 40 mg tablet 40 mg PO DAILY warfarin 2.5 mg tablet 2.5 mg PO DAILY calcium carbonate-vitamin D3 500 MG tablet 1 each PO DAILY enoxaparin 60 mg/0.6 mL syringe 60 mg SQ BID metformin 500 mg Tablet 500 mg PO BID Problem Reconciliation Problems Reviewed?: Yes Patient Discharge Instructions ACTIVITY: No heavy lifting DIET: continue same diet and diabetic diet Additional Instructions: *No heavy lifting* *No strenuous activity* *Nothing in the Vagina for 6 weeks* Patient Instructions: DI for Postoperative Pain, DI for Vaginal Hysterectomy Print Language: Ivorian Providers Primary Care Provider: Svetlana Peter Admit Provider: Steevn Rainey Attending Provider: Steven Rainey
--- NOTE | 2025-01-11 16:40 | PC.NURSE ---
Discharge education provided, questions encouraged and answered. Pt. v/u.
== END 2025-01-11 16:55 | disposition home or self-care (01) ==
LOC: OB 06:21
PROVIDERS: Admitting Provider Nurse Practitioner Obstetrics & Gynecology; PCP Nurse Practitioner Family; Visit Provider Nurse Practitioner Obstetrics & Gynecology
PROC: (CPT 58260; principal; 2025-01-10 07:30)
DX: N81.3 Complete uterovaginal prolapse (principal); E78.5 Hyperlipidemia, unspecified; E11.9 Type 2 diabetes mellitus without complications; N72 Inflammatory disease of cervix uteri; Z86.718 Personal history of other venous thrombosis and embolism; Z79.84 Long term (current) use of oral hypoglycemic drugs; Z79.899 Other long term (current) drug therapy; Z79.01 Long term (current) use of anticoagulants
CPT/HCPCS: 58260; 96361; 96375; 96376; 36415; 51702; 80048; 82962; 85025; 85610; 87086; 88307; 96374; G0378; J0690; J1100; J1171; J1650; J2003; J2004; J2405; J2704; J3010; J7120

== ENCOUNTER 2025-01-15 09:52 | Outpatient (CLI) | payer MEDICARE, OTHER, SELFPAY ==
--- OUTSIDE RECORDS SUMMARY | 2025-01-15 09:58 | XMS_ITS | Referral Summary ---
Author Organization [employer] ([place], [place], [place], [place]) Address [address] [place] [address] Care Team Providers Care Calender Roll Operator Name Role Phone [facility], Provider Not In The System Primary [...] ventricular rate of 91 beats per minute, NM interval of 164 ms, and QRS duration [...] Date [place] r[place] Speak language other than Angolan at home Not on file 07/24/2023 Want [...] on file Medical Devices Implanted Type Area Correspondence School Teacher Device Identifier Shelf Expiration Date Model / Serial / Lot Mesh St Phasix 7x10cm Rect [id number] - [id number] Implanted:Qty : 1 on 07/21/2022 by Donato Allen MD at [facility] IMPLANTS N/A: Abdomen CR BARD:DAVOL 11/30/2023 [id number] / / [id number] Insurance MEDICARE PART A B Advance Directives For more information, please contact: [phone] Documents on File Type Date Recorded Patient Wardrobe Technician Expl anation Advance Directives 07/21/2022 * Full Code (Latest Code Status on File) Date Activated Date Inactivated Comments 07/21/2022 6:58 AM 07/24/2022 7:18 PM Care Teams Calender Roll Operator Relationship Specialty Start Date End Date [facility], Provider Not In The System, [place] [address] PCP - General 07/17/22
--- OUTSIDE RECORDS SUMMARY | 2025-01-15 09:59 | XMS_ITS | Clinical Summary ---
Author Organization [employer] ([place], [place], [place], [place]) Address [address] [place] [address] Care Team Providers Care Candy Puller Name Role Phone [facility], Provider Not In The System Primary [...] ventricular rate of 91 beats per minute, DC interval of 164 ms, and QRS duration [...] Date [place] rded Speak language other than [place] Islander at home Not on file 07/24/2023 Want [...] Screening (12+) 07/2107/21/2022 COVID-19 VACCINE ( - 2023- season) 2024 Respiratory Syncytial Virus (RSV) Adult or (1 - 1-dose 75+ series) 2024 Falls Risk Screening 07/05/2024 Influenza Vaccine (#1) 2025 04/01/2022 Medical Devices Implanted Type Area Rehab Manager Device Identifier Shelf Expiration Date Model / Serial / Lot Mesh St Phasix 7x10cm Rect [id number] - [id number] Implanted:Qty : 1 on 07/21/2022 by Donato Allen MD at [facility] IMPLANTS N/A: Abdomen CR BARD:DAVOL 11/30/2023 [id number] / / [id number] Insurance [place]ICARE [place] [address] [place] [address] Advance Directives For more information, please contact: [phone] Documents on File Type Date Recorded Patient Gasfitter Expl anation Advance Directives 07/21/2022 * Full Code (Latest Code Status on File) Date Activated Date Inactivated Comments 07/21/2022 6:58 AM 07/24/2022 7:18 PM Care Teams Candy Puller Relationship Specialty Start Date End Date [facility], Provider Not In The System, [place] [address] PCP - General 07/17/22
--- OUTSIDE RECORDS SUMMARY | 2025-01-15 09:59 | XMS_ITS | Patient Health Record ---
Author Organization [facility] Address [address] [place] [address] Care Team Providers Care Supply Controller Name Role Phone Javon Peter Primary Care Provider [phone] JAVON PETER Unavailable Unavaila Jerman Funez Unavailable [phone] Migration, Provider Unavailable Unavailable Allergies No Known Allergies Results Component Value Reference Range Notes TSH W/REFLEX TO FT4 (89501) Reviewed date:05/01/2024 08:57:08 AM Interpretation: Performing Lab:[facility] [address], EchodioFohlXO[address] Kuldeep Tejeda Notes/Report: NON-FASTING; NON-FASTING; NON-FASTING NON-FASTING; NON-FASTING; NON-FASTING TSH W/REFLEX TO FT4 0.12 0.40-4.50 mIU/L T4, FREE 1.0 0.8-1.8 ng/dL HEMOGLOBIN A1c (496) Reviewed date:05/01/2024 08:57:08 AM Interpretation: Performing Lab:RADHA [facility] Whnd[address], EchodioEvmgHS[address] Kuldeep Tejeda Notes/Report: NON-FASTING; NON-FASTING; NON-FASTING HEMOGLOBIN [...] of diabetes for children. BASIC METABOLIC PANEL (71844 ) Reviewed date:05/01/2024 08:57:08 AM Interpretation: Performing Lab:CB, [facility] [address], [place] KesslerYauyHM[address] Kuldeep Tejeda Notes/Report: NON-FASTING; NON-FASTING; NON-FASTING GLUCOSE [...] 10.0 8.6-10.4 mg/dL M-PHA INR Fingerstick Reviewed date:08/31/2024 01:44:35 PM [...] date:05/15/2024 01:05:19 PM Interpretation: Performing Lab: Notes/Report: M-PHA INR Fingerstick Reviewed date:03/14/2024 09:45:20 PM [...] PREVENTION OF SYSTEMIC EMBOLISM SECONDARY TO AMI X ray : Chest Reviewed date:10/04/2024 09:11:01 AM Interpretation: Performing Lab: Notes/Report: DEXA Hip and Spine - Screeni ng Reviewed date:02/10/2024 04:05:04 PM Interpretation: Performing Lab: Notes/Report: Mammogram : Bilateral Reviewed date:01/27/2024 08:17:25 AM Interpretation: Performing Lab: Notes/Report: M-PHA INR Fingerstick Reviewed date:02/01/2024 01:12:22 PM [...] SECONDARY TO AMI M-PHA INR Fingerstick Reviewed date:09/28/2024 01:50:02 PM [...] date:02/01/2024 04:06:05 PM Interpretation: Performing Lab: Notes/Report: LIPID PANEL, STANDARD (7600) Reviewed date:10/04/2024 09:11:01 AM Interpretation: Performing Lab:RADHA [facility] [address], [place] YtffJT[address] Kuldeep Tejeda Notes/Report: NON-FASTING; NON-FASTING; NON-FASTING; NON-FASTING; NON-FAST CHOLESTEROL, TOTAL 145 <200 mg/dL HDL CHOLESTEROL 60 > OR = 50 mg/dL TRIGLYCERIDES 187 <150 mg/dL LDL-CHOLESTEROL 59 Reference range: <100 Desirable range <100 mg/dL for primary prevention; <70 mg/dL for patients with CHD or diabetic patients with > or = 2 CHD risk factors. LDL-C is now calculated using the Barrington-Flores calculation, which is a validated novel method providing better accuracy than the Friedewald equation in the estimation of LDL-C. Barrington SS et al. BAL. 2013;310(19): 8177-1214 (http://education.Seeonic.Verengo Solar/faq/XBG796) CHOL/HDLC RATIO 2.4 <5.0 (calc) NON HDL CHOLESTEROL 85 <130 mg/dL (calc) For patients with diabetes plus 1 major ASCVD risk factor, treating to a non-HDL-C goal of <100 mg/dL (LDL-C of <70 mg/dL) is considered a therapeutic option. COMPREHENSIVE METABOLIC PANE L (98577) Reviewed date:10/04/2024 09:11:01 AM Interpretation: Performing Lab:RAD[facility] [address], [place] ZnioHS[address] Kuldeep Tejeda Notes/Report: NON-FASTING; NON-FASTING; NON-FASTING; NON-FASTING; [...] Reviewed date:10/03/2024 12:47:31 PM Interpretation: Performing Lab:RAD[facility].[address], Sher[employer].MjepMZ[address] Kuldeep Tejeda Notes/Report: NON-FASTING; NON-FASTING; NON-FASTING; NON-FASTING; NON-FAST MAGNESIUM 2.1 1.5-2.5 mg/dL CBC (INCLUDES DIFF/PLT) (639 9) Reviewed date:10/04/2024 09:11:01 AM Interpretation: Performing Lab:RAD[facility]e[address], EchodioOkzxJI[address] Kuldeep Tejeda Notes/Report: NON-FASTING; NON-FASTING; NON-FASTING; NON-FASTING; [...] MPV 11.1 7.5-12.5 fL ABSOLUTE NEUTROPHILS 6316 4785-2224 cells/uL ABSOLUTE LYMPHOCYTES 9354 223-8110 cells/uL ABSOLUTE MONOCYTES 539 200-950 cells/uL ABSOLUTE EOSINOPHILS 113 15-500 cells/uL ABSOLUTE BASOPHILS 52 0-200 cells/uL NEUTROPHILS 72.6 LYMPHOCYTES 19.3 MONOCYTES 6.2 EOSINOPHILS 1.3 BASOPHILS 0.6 HEMOGLOBIN A1c (496) Reviewed date:10/04/2024 09:11:01 AM Interpretation: Performing Lab:RAD[facility]e[address], [facility] TeztMU[address] Kuldeep Tejeda Notes/Report: NON-FASTING; NON-FASTING; NON-FASTING; NON-FASTING; [...] Reviewed date:09/30/2024 09:48:13 PM Interpretation: Performing Lab:RAD[facility] [facility]e13[address] [place].[employer], EchodioIlspCW[address] Kuldeep Tejeda Notes/Report: NON-FASTING; NON-FASTING; NON-FASTING; NON-FASTING; NON-FAST VITAMIN B12 903 340-6006 pg/mL TSH W/REFLEX TO FT4 (31829) Reviewed date:10/04/2024 09:11:01 AM Interpretation: Performing Lab:RAD[facility] [facility]e[address] [employer] incvdTinoZxcfRN[address] Kuldeep Sheppard Nikhil Notes/Report: NON-FASTING; NON-FASTING; NON-FASTING; NON-FASTING; NON-FAST NON-FASTING; NON-FASTING; NON-FASTING; NON-FASTING; NON-FAST TSH W/REFLEX TO FT4 0.08 0.40-4.50 mIU/L T4, FREE 1.1 0.8-1.8 ng/dL M-PHA INR Fingerstick Reviewed date:06/05/2024 05:02:53 PM [...] SECONDARY TO AMI M-PHA INR Fingerstick Reviewed date:11/08/2024 01:45:31 PM [...] PREVENTION OF SYSTEMIC EMBOLISM SECONDARY TO AMI Reason For Referral Reason CCTA Referral Organization [facility] Referring Provider First Name Javon Referring Provider Last Name Brittani Referring Provider [facility] Family Meghana oneal Referral Priority Routine Referral Appointment Date 01/31/2024 Reason Barium Swallow UGI Diagnosis 1 Dyspepsia (R10.13) Referral Organization [facility] Referring Provider First Name Javon Referring Provider Last Name Brittani Referring Provider [facility] Meghana oneal Referred Organization [facility] Referred Address [address] [place] [id number], Referred Provider Specialty Diagnostic R adiology General [...] 2 TIMES A DAY; Duration: 30 Active Century - 1 tab(s) orally once a day Active Famotidine 40 MG 1 tablet Orally Once a day; Duration: 90 days 11/04/2024 Active Enoxaparin Sodium 60 MG/0.6ML 60 mg Injection twice a day; Duration: 7 days 01/02/2025 Active Calcium 600 + D 600 MG-20 MCG 1 TAB(S) ORALLY ONCE A DAY *Please review and pick correct strength-formulatio n from Syndevrx options. If intended option is not shown, discontinue and re-order from Quick Search* Active dilTIAZem HCl ER 180 MG 1 tablet Orally Once a day; Duration: 90 days Active Immunizations Vaccine Route Administration Date Status Comme nts Arexvy IM Intramuscular 12/23/2023 Administered Social History Tobacco Use: Social History Observation Description Date Details (start date - stop date) Former Smoker NA - NA Smoking: Question Answer Notes Are you a: former smoker Problems Problem Type SNOMED Code ICD Code Onset Dates Problem Status W/U Status Risk Notes Problem Essential hypertension (16679545) Essential hypertension (I10) Active confirmed Problem Murmur (762417304) Murmur (R01.1) Active confir med Problem Hyperlipidemia (37239727) Other and unspecified hyperlipidemia (E78.5) Active confirmed Problem Hyperthyroidism (45923302) Hyperthyroidism (E05.90) Active confirmed Problem Overactive urinary bladder (disorder) (982224302) OAB (overactive bladder) (N32.81) Active confirmed Problem Use of anticoagulation (853505874) Chronic anticoagulation (Z79.01) Active confirmed Problem Type II diabetes mellitus without complication (951453338) Type 2 diabetes mellitus without complication, without long-term current use of insulin (E11.9) Active confirmed Problem Constipation (97987075) Unspecified constipation (K59.00) Active confirmed Problem Midline cystocele (242345102) Vaginal prolapse (N81.10) Active confirmed Problem Type II diabetes mellitus without complication (557654435) New onset type 2 diabetes mellitus (E11.9) Active confirmed Problem Chronic deep venous thrombosis of right lower extremity (disorder) (802173020580580) Chronic deep vein thrombosis (DVT) of right lower extremity, unspecified vein (I82.501) Active confirmed Vital Signs Heart Rate 78 /min 01/02/2025 Temperature 97.9 degrees Fahrenheit 01/02/2025 Blood pressure diastolic 70 mm Hg 01/02/2025 Height 64.75 in 01/02/2025 Blood pressure systolic 128 mm Hg 01/02/2025 Weight 150 lbs 01/02/2025 BMI 25.15 kg/m2 01/02/2025 Encounters Encounter Location Date Provider Diagnosis [facility] [address] [facility] [address] [place], [place] [address] 10/07/2024 Provider Migration [facility] [address] [facility] [address] [place], [place] [address] 01/27/2024 Javon Peter New onset type 2 diabetes mellitus E11.9 ; Abnormal stress test R94.39 and Pain, joint, knee, right M25.561 [facility] [address] [facility] [address] [place], [place] [address] 04/27/2024 Javon Peter Recurrent deep vein thrombosis (DVT) I82.409 ; Type 2 diabetes mellitus without complication, without long-term current use of insulin E11.9 ; Hyperthyroidism E05.90 and Dyspepsia R10.13 [facility] [address] [facility] [address] [place], [place] [address] 07/20/2024 Javon Peter Acute non-recurrent maxillary sinusitis J01.00 [facility] [address] [facility] [address] [place], [place] [address] 09/28/2024 Javon Peter Type 2 diabetes mellitus without complication, without long-term current use of insulin E11.9 ; Recurrent deep vein thrombosis (DVT) I82.409 ; Hyperthyroidism E05.90 ; Malaise R53.81 and SOB (shortness of breath) R06.02 [facility] [address] [facility] [address] [place] [address] 11/08/2024 Jerman Velez Chronic deep vein thrombosis (DVT) of right lower extremity, unspecified vein I82.501 and Pulmonary embolism, unspecified chronicity, unspecified pulmonary embolism type, unspecified whether acute cor pulmonale present I26.99 [facility] [address] [facility] [address] [place] [address] 01/02/2025 Sarah Florence Medicare annual wellness visit, subsequent Z00.00 ; Recurrent deep vein [...] Essential hypertension I10 and Vaginal prolapse N81.10 [facility] [address] [facility] [address] [place] [address] 01/18/2024 [facility] Breast cancer screen ing other than mammogram Z12.39 and Asymptomatic menopausal state Z78.0 [facility] [address] [facility] [address] [place] [address] 01/18/2024 [facility] Dyspnea on exertion R06.09 ; Chest pain R07.9 ; Murmur R01.1 and Abnormal EKG R94.31 [facility] [address] [facility] [address] [place] [address] 01/27/2024 [facility] [address] [facility] [address] [place] [address] 02/01/2024 [facility] [address] [facility] [address] [place] [address] 04/27/2024 [facility] Dyspepsia R10.13 [facility] [address] [facility] [address] [place] [address] 05/15/2024 [facility] [address] [facility] [address] [place] [address] 07/13/2024 [facility] History of DVT of lo wer extremity Z86.718 [facility] [address] [facility] [address] [place] [address] 11/04/2024 [facility] [address] [facility] [address] [place] [address] 01/03/2025 Javon Peter Assessments Encounter Date Diagnosis (ICD Code) Assessment Notes Treatment Notes Treatment Clinical Notes Section Notes 01/18/2024 Breast cancer screening other than mammogram (ICD-10 - Z12.39) 01/18/2024 Dyspnea on exertion (ICD-10 - R06.09) [...] thrombosis (DVT) (ICD-10 - I82.409) Continue warfarin, [facility] Coumadin clinic for monitoring 04/27/2024 Dyspepsia [...] thrombosis (DVT) (ICD-10 - I82.409) Continue warfarin, [facility] Coumadin clinic for monitoring 11/08/2024 Chronic [...] PGM gene, FVL, LA, anti-cardiolipin , and anti-[id number] rotein (cannot interpret C, S, or AT def in Pt on warfarin therapy)__but given age, significant thromboses hx as above would be unlikely to global climate change researcher -would reccomend Pt remain on warfarin pre-operatively, will need a lovenox bridge which we will discuss w/coumadin clinic/pharmacy -RTC 3 months for fup on chronic medical conditions 11/08/2024 Pulmonary embolism, unspecified chronicity, unspecified pulmonary embolism type, unspecified whether acute cor pulmonale present (ICD-10 - I26.99) -Pt reportin hx of PE in association w/DVTs as above 01/02/2025 Medicare annual wellness visit, subsequent (ICD-10 - Z00.00) reviewed recommendations for age, presently UTD 01/02/2025 Recurrent deep vein thrombosis (DVT) (ICD-10 - I82.409) Continue warfarin, [facility] Coumadin clinic for monitoring 01/02/2025 Hyperthyroidism (ICD-10 - E05.90) continue methimazole 09/28/2024 Hyperthyroidism (ICD-10 - E05.90) continue methimazole [...] incontinence, bladder prolapse, nocturia. has FU with HVAC DESIGNER to review options 01/02/2025 Dyspepsia (ICD-10 - R10.13) improved with treatment 01/02/2025 Unspecified constipation (ICD-10 - K59.00) stable on current regimen, discussed prevention of constipation postoperatively 09/28/2024 SOB (shortness of breath) (ICD-10 - R06.02) likely multifactoral...w ill need cardiac clearance if she does opt for hysterectomy 01/18/2024 Abnormal EKG (ICD-10 - R94.31) 01/02/2025 Other and unspecified hyperlipidemia (ICD-10 - E78.5) continue statin therapy, goal LDL < 100 01/02/2025 Chronic anticoagulation (ICD-10 - Z79.01) INR in goal range today 01/02/2025 Murmur (ICD-10 - R01.1) echo stable in 202301/02/2025 OAB (overactive bladder) (ICD-10 - N32.81) following with HVAC DESIGNER 01/02/2025 Type 2 diabetes mellitus without complication, [...] her with written instructions. Plan Of Treatment Pending Test Test Name Order Date M-Hemoglobin A1C 01/02/2025 M-Microalb/Creat Ratio, Randm Ur 025 FERRITIN (457) 12/23/2023 Next Appt Details Provider Name:Javon Carrillo ce, 04/05/2025 11:00:00 AM, [address], [place], [address], Insurance Providers Payer Name Payer Address Payer Phone Subscriber Number Group Number Insured Name Patient Relationship to Insured Coverage Start Date Coverage End Date [place] [address] [id number] Kim Soria Self - patient is the insured [employer] [place] [address] [address] [place] [address] [id number] Kim Soria Self - patient is the insured [employer] [address] [place] [address] [phone] ACL Kim Soria Self - patient is the insured Medical (General) History Medical History History ICD Code Hyperthyroidism HLD DVT/PT on warfarin Degenerative arthritis Heart murmur Rt Knee Arthritis Diabetes Mellitus Surgical History Surgery Date(Month/Year) hernia repair tubal ligation cataract removal
[2025-01-15 15:43] LABS: PHA INR Fingerstick 2.0 (0.9-1.1)
== END 2025-01-15 16:01 ==
LOC: ACC 09:53
PROVIDERS: PCP Nurse Practitioner Family; Visit Provider Nurse Practitioner Family
DX: Z79.01 Long term (current) use of anticoagulants (principal)
CPT/HCPCS: 85610; 99211; G0463

== ENCOUNTER 2025-02-02 10:19 | Outpatient (CLI) | payer MEDICARE, OTHER, SELFPAY ==
--- OUTSIDE RECORDS SUMMARY | 2025-01-02 06:15 | XMS_ITS ---
Author Organization [facility] Address [address] [place] [address] Care Team Providers Care Field Coordinator Name Role Phone Javon Peter Primary Care Provider JAVON PETER Unavailable Unavaila ble Allergies No Known Allergies Results Component Value Reference Range Notes M-Hemoglobin A1C Reviewed date:01/24/2025 03:27:30 PM Interpretation: Performing Lab: Notes/Report: HGBA1C 8.3 4.0-6.0 % < 6% Non-Diabetic Level < 7% Controlled Diabetic Level > 8% Poorly Controlled Diabetic Level REASON FOR VISIT JOSEFA has surgery on January 10, when does she need to stop her Warfarin?, [facility]mani [facility] wants her to discuss with you taking Lovenox injections before and after surgery, needs refill on Diltiazem Medications Medication SIG (Take, Route, Frequency, Duration) Notes Start Date End Date Status methIMAzole 10 mg TAKE ONE TABLET BY MOUTH ONCE A DAY; Duration: 30 Active Warfarin Sodium 2.5 mg TAKE ONE TABLET BY MOUTH ONCE A DAY; Duration: 30 Active Atorvastatin Calcium 40 mg TAKE ONE TABLET BY MOUTH ONCE A DAY; Duration: 30 Active metFORMIN HCl 500 mg TAKE ONE TABLET BY MOUTH 2 TIMES A DAY; Duration: 30 Active Famotidine 40 MG 1 tablet Orally Once a day; Duration: 90 days 11/04/2024 Active Century - 1 tab(s) orally once a day Active Enoxaparin Sodium 60 MG/0.6ML 60 mg Injection twice a day; Duration: 7 days 01/02/2025 Active Calcium 600 + D 600 MG-20 MCG 1 TAB(S) ORALLY ONCE A DAY *Please review and pick correct strength-formulatio n from Medispan options. If intended option is not shown, discontinue and re-order from Quick Search* Active dilTIAZem HCl ER 180 MG 1 tablet Orally Once a day; Duration: 90 days Active Social History Tobacco Use: Social History Observation Description Date Details (start date - stop date) Former Smoker NA - NA Smoking: Question Answer Notes Are you a: former smoker Problems Problem Type SNOMED Code ICD Code Onset Dates Problem Status W/U Status Risk Notes Problem Essential hypertension (28419706) Essential hypertension (I10) Active confirmed Problem Vaginal prolapse (N81.10) Active confirmed Vital Signs Temperature 97.9 degrees Fahrenheit 01/03/20 25 Blood pressure systolic 128 mm Hg 01/03/20 25 Blood pressure diastolic 70 mm Hg 025 Heart Rate 78 /min 01/02/2025 Height 64.75 in 01/02/2025 Weight 150 lbs 01/02/2025 BMI 25.15 kg/m2 01/02/2025 Encounters Encounter Location Date Provider Diagnosis [facility] [address] [place] [address] 01/02/2025 Javon Peter Medicare annual well ness visit, subsequent Z00.00 ; Recurrent deep vein thrombosis (DVT) I82.409 ; Hyperthyroidism E05.90 ; Dyspepsia R10.13 ; Unspecified constipation K59.00 ; Other and unspecified hyperlipidemia E78.5 ; Chronic anticoagulation Z79.01 ; Murmur R01.1 ; OAB (overactive bladder) N32.81 ; Type 2 diabetes mellitus without complication, without long-term current use of insulin E11.9 ; BMI 25.0-25.9,adult Z68.25 ; Essential hypertension I10 and Vaginal prolapse N81.10 Assessments Encounter Date Diagnosis (ICD Code) Assessment Notes Treatment Notes Treatment Clinical Notes Section Notes 01/02/2025 Medicare annual wellness visit, subsequent (ICD-10 - Z00.00) reviewed recommendations for age, presently UTD 01/02/2025 Recurrent deep vein thrombosis (DVT) (ICD-10 - I82.409) Continue warfarin, [facility] Coumadin clinic for monitoring 01/02/2025 Hyperthyroidism (ICD-10 - E05.90) continue methimazole 01/02/2025 Dyspepsia (ICD-10 - R10.13) improved with treatment 01/02/2025 Unspecified constipation (ICD-10 - K59.00) stable on current regimen, discussed prevention of constipation postoperatively 01/02/2025 Other and unspecified hyperlipidemia (ICD-10 - E78.5) continue statin therapy, goal LDL < 100 01/02/2025 Chronic anticoagulation (ICD-10 - Z79.01) INR in goal range today 01/02/2025 Murmur (ICD-10 - R01.1) echo stable in 202301/02/2025 OAB (overactive bladder) (ICD-10 - N32.81) following with CAM MILLING MACHINE OPERATOR 01/02/2025 Type 2 diabetes mellitus without complication, without long-term current use of insulin (ICD-10 - E11.9) Goal A1C < 7, will have labs drawn tomorrow 01/02/2025 BMI 25.0-25.9,adult (ICD-10 - Z68.25) 01/02/2025 Essential hypertension (ICD-10 - I10) mild HTN in the past, stable on diltiazem 01/02/2025 Vaginal prolapse (ICD-10 - N81.10) cleared for surgery from primary care standpoint. I spoke with coumadin clinic about bridge with lovenox and provided her with written instructions. Plan Of Treatment Medication Medication Name Sig Start Date Stop Date Notes Enoxaparin Sodium 60 MG/0.6ML 60 mg Inje ction twice a day; Duration: 7 days 01/02/2025 dilTIAZem HCl ER 180 MG 1 tablet Orally Once a day; Duration: 90 days Treatment Notes Assessment Notes Hyperthyroidism continue methimazole Dyspepsia improved with treatm ent Other and unspecified hyperlipidemia con tinue statin therapy, goal LDL < 100 Pending Test Test Name Order Date M-Microalb/Creat Ratio, Randm Ur 025 Next Appt Details Follow Up: 4 Months, Reason: Provider Name:Javon Carrillo ce, 04/05/2025 11:00:00 AM, [address], [place], [address], Progress Notes * Kim DIAZ:1949 (74 yo F)Acc No.[id number]:01/02/2025 Progress Notes Patient: Kim MCLAUGHLIN I Provider: REBEKAH Vides :1950 A ge:74 Y S ex:Female Date:01/02/2025 Address:[address] [place] [address] , [place], [id number] Subjective: * Chief Complaints: * 1 . AWV. 2. has surgery on January 10, when does she need to stop her Warfarin?. 3. Osmani at [facility] wants her to discuss with you taking Lovenox injections before and after surgery. 4. needs refill on Diltiazem. * HPI: g en: Presents today for chronic disease FU and AWV. No acute concerns aside from preparing for her upcoming hysterectomy, Dr Rainey. She has had cardiac evaluation and they did not feel that she needs additional diagnostics prior to surgery. She is on warfarin due to recurrent blood clots and has spoke with provider at the [facility] about need for Lovenox bridge. Also notes that she follows practices of [facility] and does not accept blood products. Chronic disease includes diabetes and mild hypertenison with heart murmur as well. Does not routinely monitor glucose but denies symptoms of hypo or hyperglycemia. Is taking the metformin as prescribed with no side effects. She does have some chronic shortness of breath, negative cardiac workup within the past year. Hx of a hernia repair. Denies gerd symptoms, heart burn, acid reflux. * ROS: F UNCTIONAL STATUS: ADLS I ndependent for all ADL/IADL. R ESPIRATORY: Shortness of breath y es, o ccasional, with exertion, new. n o C ough. C ARDIOLOGY: no C hest pain. n o P alpitations. L eg edema?yes, m ore at the end of the day. C ONSTITUTIONAL: no L oss of appetite. n o F ever. D ERMATOLOGY: no R hari. G ASTROENTEROLOGY: Heartburn y es, B catalina with prescription. n o V omiting. n o A bdominal pain. n o D iarrhea. n o C onstipation. H EMATOLOGY/LYMPH: Reviewed, No Symptoms Reported: Y es. M USCULOSKELETAL: Joint stiffness y es. J oint pain y es. n o?Joint swelling. N EUROLOGY: Reviewed, No Symptoms Reported: Y es. P SYCHOLOGY: Reviewed, No Symptoms Reported: Y es. U ROLOGY: See HPI Y es. n o D ifficulty urinating. n o?Blood in urine. F requent urination y es. U rinary incontinence yes. N octuria y es, 4 or more. 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 * Surgical History: h ernia repair , tubal ligation , cataract removal . * Hospitalization/Major Diagno stic Procedure: D enies Past Hospitalization. * Family History: F ather: , heart [...] daily. Living Will: Yes, Patient is a Alev[employer]. She wishes to not receive any blood transfusions.. Alcohol: socially. Sexually active: no. Travel outside US: no. * Medications: T aking dilTIAZem HCl ER 180 MG Tablet Extended Release 24 Hour 1 tablet Orally Once a day , Taking Calcium 600 + D 600 MG-20 MCG TABLET 1 TAB(S) ORALLY ONCE A DAY , Notes to Pharmacist: *Please review and pick correct strength-formulation from Medispan options. If intended option is not shown, discontinue and re-order from Quick Search*, Taking Century - Tablet 1 tab(s) orally once a day , Taking Famotidine 40 MG Tablet 1 tablet Orally Once a day , Taking Atorvastatin Calcium 40 mg Tablet TAKE ONE TABLET BY MOUTH ONCE A DAY , Taking metFORMIN HCl 500 mg Tablet TAKE ONE TABLET BY MOUTH 2 TIMES A DAY , Taking methIMAzole 10 mg Tablet TAKE ONE TABLET BY MOUTH ONCE A DAY , Taking Warfarin Sodium 2.5 mg Tablet TAKE ONE TABLET BY MOUTH ONCE A DAY , Medication List reviewed and reconciled with the patient * Allergies: N .K.D.A. Objective: * Vitals: N urse: jl, Pain: 0, Temp: 97.9, RR: 18, HR: 78, BP: 128/70, Ht: 64.75, Wt: 150, BMI:25.15. * Examination: G eneral Examination: General P leasant and Cooperative, NAD on RA,. Oral cavity: M oist membranes. Heart: R egular Rate and Rhythm, 2/6 systolic murmur. Lungs: c lear to auscultation,. Abdomen: s oft, NT/ND, BS present. Neurologic Exam: A lert and oriented x 3. Skin: w ithout acute rashes. Peripheral pulses: n ormal (2+) bilaterally. Extremities: n o clubbing, no edema, extensive venous varicosities without evidence of complication. neck s upple,. Psych N ormal Mood/Affect. Assessment: * Assessment: 1. M viviana annual wellness visit, subsequent - Z00.00 (Primary) 2 . R ecurrent deep vein thrombosis (DVT) - I82.409 3 . H yperthyroidism - E05.90 ? 4 . D yspepsia - R10.13 5 . U nspecified constipation - K59.00 6 . O ther and unspecified hyperlipidemia - E78.5 7 . C hronic anticoagulation - Z79.01 8 . M urmur - R01.1 9 . O AB (overactive bladder) - N32.81 1 0. T ype 2 diabetes mellitus without complication, without long-term current use of insulin - E11.9 1 1. B WV 25.0-25.9,adult - Z68.25? 12. E ssential hypertension - I10 1 3. V aginal prolapse - N81.10 Plan: * Treatment: 2. R ecurrent deep vein thrombosis (DVT) Clinical Notes: Continue warfarin, [facility] Coumadin clinic for monitoring 3. H yperthyroidism Notes: continue methimazole 4. D yspepsia Notes: improved with treatment 5. U nspecified constipation Clinical Notes: stable on current regimen, discussed prevention of constipation postoperatively? 6. O ther and unspecified hyperlipidemia Notes: continue statin therapy, goal LDL < 100 7. C hronic anticoagulation Start Enoxaparin Sodium Solution Prefilled Syringe, 60 MG/0.6ML, 60 mg, Injection, twice a day, 7 days, 14, Refills 0. Clinical Notes: INR in goal range today 8. M urmur Refill dilTIAZem HCl ER Tablet Extended Release 24 Hour, 180 MG, 1 tablet, Orally, Once a day, 90 days, 90 Tablet, Refills 1. Clinical Notes: echo stable in 2023 9. O AB (overactive bladder) Clinical Notes: following with CAM MILLING MACHINE OPERATOR 10. T ype 2 diabetes mellitus without complication, without long-term current use of insulin L AB: M-Hemoglobin A1C Value Reference Range H emoglobin A1C 8.3 H 4.0-6.0 - % * This lab was reviewed by Alin Ang on 01/24/2025 at 15:27 PM EDT ?LAB: M-Microalb/Creat Ratio, Randm Ur Clinical Notes: Goal A1C < 7, will have labs drawn tomorrow??11.?Essential hypertension? Clinical Notes: mild HTN in the past, stable on diltiazem??12.?Vaginal prolapse? Clinical Notes: cleared for surgery from primary care standpoint. I spoke with coumadin clinic about bridge with lovenox and provided her with written instructions. ?? * Procedure Codes: G 0439 ANNUAL WELLNESS VST; PPS SUBSQT VST, M1371 Mst rec gsa<7, G8399 PT W/DXA DOCUMENT OR ORDER, 1123F ADVANCED DIRECTIVE - HAS A LIVING WILL, 3017F COLORECTAL CA SCREEN DOC REV, G8420 BMI documented as normal, no follow up required., G8510 NEGATIVE SCREENING F/U NOT REQUIRED, G9903 Pt scrn tbco id as non user, G8752 Most recent systolic blood pressure < 140mmhg, G8754 Most recent diastolic blood pressure < 90mmhg, G9744 PATIENT NOT ELIG D/T ACTIVE DX HTN * Preventive Medicine: Counseling: Liliana chamberlain will H as living will. OPHELIA Screening: F alls: Future screening for fall risks H ave you had two or more falls in the past year? N o, H ave you had any falls with injury in the past year? N o. Depression Screening: P HQ 2 F eeling down depressed or hopeless N o. Immunizations: i nfluenza H ave you had a flu shot since the most recent March 05 ? Y es. P neumonia vaccine: Status for Older Adults A re you up-to-date on your pneumonia vaccine? yes or no B oth Prevnar and Pneumovax. S hingrix D r [facility] office.?RSV vaccination C ompleted today. Screening / Special Tests: M ammogram u p to date. P ap Smear o zoey age 64 years, followed by CAM MILLING MACHINE OPERATOR. C olonoscopy 2 020, Dr Patel. B one mineral Density 2 024. L reynold Cancer Screening q uit 1972. o ne fall in October, no injury. * Follow Up: 4 Months * * Sign off status: Completed true * Provider: REBEKAH Vides Date: 0 01/02/2025 Generated for Marichuy mcdowell/Logan/Hero on: 02/02/2025 10:23 AM EDT History and Physical Notes * Examination Category Sub-Category Detail Notes Category Not es General Examination Heart: Regular Rate and Rhythm, 2/6 systolic murmur Lungs: clear to auscultatio n, Abdomen: soft, NT/ND, BS pres ent Extremities: no clubbing, no gene a, extensive venous varicosities without evidence of complication Skin: without acute rashes Neurologic Exam: Alert and oriented x 3 Oral cavity: Moist membranes Peripheral pulses: normal (2+) bilatera lly neck supple, General Pleasant and Coopera tive, NAD on RA, Psych Normal Mood/Affect
--- OUTSIDE RECORDS SUMMARY | 2025-01-11 07:00 | XMS_ITS ---
Author Organization [facility] IM PE D [facility] Address [address] [facility] [address] [facility] [address] [place] [address] Care Team Providers Care Waste Removalist Name Role Phone Svetlana Peter Primary Care Provider SVETLANA PETER Unavailable Unavaila ble REASON FOR VISIT 4 Month F/U Encounters Encounter Location Date Provider Diagnosis [place] [facility] [address] [place] [address] [facility] [address] [place] [address] 01/11/2025 Svetlana Peter Plan Of Treatment Next Appt Details Provider Name:Svetlana Carrillo ce, 04/05/2025 11:00:00 AM, [address] [place] [address] [facility], [address], [place], [address], Progress Notes * Kim DIAZ IDOB:1949 (74 yo F)Acc No.[id number]:01/11/2025 Progress Notes Patient: Kim MCLAUGHLIN I Provider: REBEKAH Vides :1950 A ge:74 Y S ex:Female Date:01/11/2025 Address:[address] [place] [address] [address] , [phone] Subjective: * Chief Complaints: * 1 . 4 Month F/U. 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
--- OUTSIDE RECORDS SUMMARY | 2025-02-02 10:23 | XMS_ITS | Referral Summary ---
Author Organization [facility] ([place], [place], [place], [place]) Address [address] [place] [address] Care Team Providers Care Board Of Education Secretary Name Role Phone [facility], Provider Not In The System [...] Date [place] rded Speak language other than Montenegrin at home Not on file 07/24/2023 Want [...] on file Medical Devices Implanted Type Area Eclectic Doctor Device Identifier Shelf Expiration Date Model / Serial / Lot Mesh St Phasix 7x10cm Rect [id number] - [id number] Implanted:Qty : 1 on 07/21/2022 by Donato Allen MD at [facility] IMPLANTS N/A: Abdomen CR BARD:DAVOL 11/30/2023 [id number] / / [id number] Insurance MEDICARE PART A B Advance Directives For more information, please contact: [phone] Documents on File Type Date Recorded Patient Processing Archivist Expl anation Advance Directives 07/21/2022 * Full Code (Latest Code Status on File) Date Activated Date Inactivated Comments 07/21/2022 6:58 AM 07/24/2022 7:18 PM Care Teams Board Of Education Secretary Relationship Specialty Start Date End Date [facility], Provider Not In The System, [place] [address] PCP - General 07/17/22
--- OUTSIDE RECORDS SUMMARY | 2025-02-02 10:23 | XMS_ITS | Clinical Summary ---
Author Organization [facility] Address [address] [place] [id number] Care Team Providers Care Speedboat Operator Name Role Phone Dixon Chapman MD Primary Care Provider [phone] Allergies No known active allergies Medications ferrous sulfate 325 (65 FE) MG tablet Take 325 mg by mouth daily with breakfast. Active lisinopril-hydro chlorothiazide (PRINZIDE,ZESTOR ETIC) 10-12.5 MG per tablet Take 1 tablet by mouth daily. Active warfarin (COUMADIN) 5 MG tablet Take 5 mg by mouth daily. Active METHIMAZOLE PO Take 10 mg by mouth daily. Active Active Problems Problem Noted Date Diagnosed Date History of DVT (deep vein thrombosis) 01/16/2016 Overview (01/16/2016): 1. Multiple, on chronic Coumadin therapy: a. First at 32 years following . b. Second at 39 years on Coumadin therapy with historical intolerance to generic warfarin. c. DVT at 57 on brand name Coumadin therapy. Dyspnea 01/16/2016 Hypertension 01/16/2016 Overview (01/16/2016): 01/23/2015: EKG from today shows sinus rhythm with ventricular rate of 91 beats per minute, AK interval of 164 ms, and QRS duration of 72 ms. History of chronic anemia 01/16/2016 Overview (01/16/2016): Most recent hemoglobin of 9.5 in December 2014. Family History Medical History Relation Name Comments Brain cancer Brother Coronary artery disease Father Cancer Mother Coronary artery disease Sister 1 Coronary artery disease Sister 2 Relation Name Status Comments Brother (Age 38) Father Mother (Age 71) Sister 1 Sister 2 Social History Tobacco Use Types Packs/Day Years Used Date Smoking Tobacco: Former Cigarettes 1 5 1 968 1972 Comments:quit 40 years ago Alcohol Use Standard Drinks/Week Comments Yes 1 (1 standard drink = 0.6 oz pur e alcohol) Abuse Screen Answer Date Recorded Unsafe at Home or Work/School Not on file Feels Threatened by Someone? Not on file 04/2023 Does Anyone Keep You from Co ntacting Others or Doint Things Outside the Home? Not on file 04/13/2023 Physical Sign of Abuse Present Not on file 1 Housing Stability Answer Date Recorded Current Living Arrangements Not on file 04/04 Potentially Unsafe Housing Conditions Not on nicho e 04/13/2023 Family and Community Support Answer [place] e Recorded Help with Day-to-Day Activities Not on file 04/13/2023 Lonely or Isolated Not on file 04/13/2023 Employment Answer Date Recorded Do you want help finding or keeping work or a ольга b? Not on file 04/13/2023 Disabilities Answer Date Recorded Concentrating, Remembering, or Making Decisions Difficulty Not on file 04/13/2023 Doing Errands Independently Difficulty Not on fi le 04/13/2023 Education Answer Date Recorded Help with school or training? Not on file Preferred Language Not on file 04/13/2023 Comments Unknown Sex and Gender Information Value Date Recorded Sex Assigned at Not on file Legal Sex Female 1:54 PM EDT Gender Identity Not on file Sexual Orientation Not on file Last Filed Vital Signs Vital Sign Reading Time Taken Comments Blood Pressure 104/71 01/28/2016 3:03 PM EDT Pulse 75 01/28/2016 3:03 PM EDT Temperature - - Respiratory Rate - - Oxygen Saturation - - Inhaled Oxygen Concentration - - Weight 79.8 kg (176 lb) 01/28/2016 3:03 PM EDT Height 170.2 cm (5' 7 ) 01/28/2016 3:03 PM EDT Body Mass Index 27.57 01/28/2016 3:03 PM EDT Plan of Treatment Health Maintenance Due Date Last Done Comments ANNUAL PHYSICAL 1950 DXA SCAN 1950 HEPATITIS C SCREENING 1949 TDAP/TD VACCINES (1 - Tdap) 1968 COLOGUARD 1994 COLON CANCER SCREENING 5 YEAR SIGMOIDOSCOPY 1994 COLONOSCOPY 1994 [address] CANCER SCREENING 1994 CT COLONOGRAPHY 1994 FECAL OCCULT BLOOD TEST 1994 FIT Testing (1 year) 1994 Pneumococcal Vaccine 50+ (1 of 1 - PCV) 1999 ZOSTER VACCINE (1 of 2) 1999 COVID-19 Vaccine (1 - 2023- season) 2024 RSV Vaccine - Adults (1 - 1-dose 75+ series) INFLUENZA VACCINE 04/04/2025 Insurance [facility] MEDICARE A & B Care Teams Speedboat Operator Relationship Specialty Start Date End Date Dixon Chapman MD [address] [place], [place] [id number] PCP - General Family Medicine 01/22/16
--- OUTSIDE RECORDS SUMMARY | 2025-02-02 10:23 | XMS_ITS | Clinical Summary ---
Author Organization [employer] ([place], [place], [place], [place]) Address [address] [place] [address] Care Team Providers Care Flume Ride Operator Name Role Phone [facility], Provider Not In The System Primary Care [...] ventricular rate of 91 beats per minute, [place] interval of 164 ms, and QRS duration [...] Date [place] rded Speak language other than Syrian at home Not on file 07/24/2023 Want [...] 2025 04/01/2022 Medical Devices Implanted Type Area Senior Controls Analyst Device Identifier Shelf Expiration Date Model / Serial / Lot Mesh St Phasix 7x10cm Rect [id number] - [id number] Implanted:Qty : 1 on 07/21/2022 by Donato Allen MD at [facility] IMPLANTS N/A: Abdomen CR BARD:DAVOL 11/30/2023 [id number] / / [id number] Insurance MEDICARE [place] [address] [place] [address] Advance Directives For more information, please contact: [phone] Documents on File Type Date Recorded Patient Wastewater Analyst Lab Analyst Expl anation Advance Directives 07/21/2022 * Full Code (Latest Code Status on File) Date Activated Date Inactivated Comments 07/21/2022 6:58 AM 07/24/2022 7:18 PM Care Teams Flume Ride Operator Relationship Specialty Start Date End Date [facility], Provider Not In The System, [place] [address] PCP - General 07/17/22
--- OUTSIDE RECORDS SUMMARY | 2025-02-02 10:23 | XMS_ITS | Patient Health Record ---
Author Organization [facility] Address [address] [place] [address] Care Team Providers Care Meat Stringer Name Role Phone Svetlana Peter Primary Care Provider SVETLANA PETER Unavailable Unavaila ble Jerman Velez Unavailable [phone] Migration, Provider Unavailable Unavailable Allergies No Known Allergies Results Component Value Reference Range Notes M-PHA INR Fingerstick Reviewed date:01/22/2025 06:09:52 PM Interpretation: Performing Lab: Notes/Report: POCINRFS 2.0 0.9-1.1 Results sent to: Svetlana Peter APRN Pharmacist recommendation for Warfarin therapy is: PATIENT INR 2.0 TODAY VIA FINGERSTICK. RECOMMENDED PATIENT CONTINUE WITH [...] date:10/04/2024 09:11:01 AM Interpretation: Performing Lab: Notes/Report: H-MALBCREA Reviewed date:01/22/2025 06:13:53 PM Interpretation: Performing Lab: Notes/Report: to the less than value for Urine Microalbumin. Unable to calculate Urine Microalbumin/Creatinine Ratio due UCREAT 14 Not Estab. mg/dL Random urine reference range not established. 24 hour urine samples recommended. MICROALB < 6.000 0-16.7 mg/L M-PHA INR Fingerstick Reviewed date:01/22/2025 06:15:19 PM Interpretation: Performing Lab: Notes/Report: POCINRFS 2.2 0.9-1.1 Results sent to: Svetlana Peter APRN Pharmacist recommendation for Warfarin therapy is: PATIENT INR 2.2 TODAY VIA FINGERSTICK. RECOMMENDED PATIENT CONTINUE WITH WARFARIN 2.5 MG DAILY DOSE. PATIENT HAVING PROCEDURE ON 01/10. PATIENT TO CALL AFTER DISCUSSING PROCEDURE AND ANTICOAGULATION WITH PRIMARY CARE TODAY. FOR DETAILED INFORMATION-PLEASE REVIEW PROGRESS NOTE IN [...] Notes/Report: POCINRFS 2.3 0.9-1.1 Results sent to: Svetlana Peter APRN Pharmacist recommendation for Warfarin therapy [...] Notes/Report: POCINRFS 2.2 0.9-1.1 Results sent to: Svetlana Peter APRN Pharmacist recommendation for Warfarin therapy [...] Notes/Report: POCINRFS 3.5 0.9-1.1 Results sent to: Svetlana Peter APRN Pharmacist recommendation for Warfarin therapy [...] Notes/Report: POCINRFS 2.7 0.9-1.1 Results sent to: Svetlana Peter APRN Pharmacist recommendation for Warfarin therapy [...] SECONDARY TO AMI M-PHA INR Fingerstick Reviewed date:03/14/2024 09:45:20 PM Interpretation: Performing Lab: Notes/Report: POCINRFS 3.1 0.9-1.1 Results sent to: Svetlana Peter APRN Pharmacist recommendation for Warfarin therapy [...] SECONDARY TO AMI M-PHA INR Fingerstick Reviewed date:06/05/2024 05:02:53 PM Interpretation: Performing Lab: Notes/Report: POCINRFS 2.6 0.9-1.1 Results sent to: Svetlana Peter APRN Pharmacist recommendation for Warfarin therapy [...] Notes/Report: POCINRFS 1.5 0.9-1.1 Results sent to: Svetlana Peter APRN Pharmacist recommendation for Warfarin therapy [...] PREVENTION OF SYSTEMIC EMBOLISM SECONDARY TO AMI M-Hemoglobin A1C Reviewed date:01/24/2025 03:27:30 PM Interpretation: Performing Lab: Notes/Report: HGBA1C 8.3 4.0-6.0 % < 6% Non-Diabetic Level < 7% Controlled Diabetic Level > 8% Poorly Controlled Diabetic Level Barium : Upper GI Series Reviewed date:05/15/2024 01:05:19 PM Interpretation: Performing Lab: Notes/Report: BASIC METABOLIC PANEL ([id number] ) Reviewed date:05/01/2024 08:57:08 AM Interpretation: Performing Lab:RAD[facility] [employer] [employer], [place]way[place] PizzaPfmnDM[address] Kuldeep Tejeda Notes/Report: NON-FASTING; NON-FASTING; NON-FASTING GLUCOSE [...] 29 20-32 mmol/L CALCIUM 10.0 8.6-10.4 mg/dL HEMOGLOBIN A1c (496) Reviewed date:05/01/2024 08:57:08 AM Interpretation: Performing Lab:RAD[facility] [employer] [address], EyeviewAqdeKK[address] Kuldeep Tejeda Notes/Report: NON-FASTING; NON-FASTING; NON-FASTING HEMOGLOBIN [...] A1c for diagnosis of diabetes for children. TSH W/REFLEX TO FT4 ([id number]) Reviewed date:05/01/2024 08:57:08 AM Interpretation: Performing Lab:RADHA [employer], EyeviewHictYB[address] Kuldeep Tejeda Notes/Report: NON-FASTING; NON-FASTING; NON-FASTING NON-FASTING; NON-FASTING; NON-FASTING TSH W/REFLEX TO FT4 0.12 0.40-4.50 mIU/L T4, FREE 1.0 0.8-1.8 ng/dL TSH W/REFLEX TO FT4 (50206) Reviewed date:10/04/2024 09:11:01 AM Interpretation: Performing Lab:RADHA [employer], [place] FsugVY[address] Kuldeep Tejeda Notes/Report: NON-FASTING; NON-FASTING; NON-FASTING; NON-FASTING; NON-FAST NON-FASTING; NON-FASTING; NON-FASTING; NON-FASTING; NON-FAST TSH W/REFLEX TO FT4 0.08 0.40-4.50 mIU/L T4, FREE 1.1 0.8-1.8 ng/dL VITAMIN B12 (927) Reviewed date:09/30/2024 09:48:13 PM Interpretation: Performing Lab:RADHA [employer] [address], EyeviewKyqsLS[address] Kuldeep Tejeda Notes/Report: NON-FASTING; NON-FASTING; NON-FASTING; NON-FASTING; NON-FAST VITAMIN B12 349 878-4498 pg/mL HEMOGLOBIN A1c (496) Reviewed date:10/04/2024 09:11:01 AM Interpretation: Performing Lab:RADHA [employer] [address], Sideway[address] PizzaWynmKA[address] Kuldeep Tejeda Notes/Report: NON-FASTING; NON-FASTING; NON-FASTING; NON-FASTING; [...] A1c for diagnosis of diabetes for children. CBC (INCLUDES DIFF/PLT) (639 9) Reviewed date:10/04/2024 09:11:01 AM Interpretation: Performing Lab:RADHA [employer] [address], EyeviewMdssKZ[address] Kuldeep Tejeda Notes/Report: NON-FASTING; NON-FASTING; NON-FASTING; NON-FASTING; [...] MPV 11.1 7.5-12.5 fL ABSOLUTE NEUTROPHILS 6316 7972-0396 cells/uL ABSOLUTE LYMPHOCYTES 2066 540-5973 cells/uL ABSOLUTE MONOCYTES 539 200-950 cells/uL ABSOLUTE EOSINOPHILS 113 15-500 cells/uL ABSOLUTE BASOPHILS 52 0-200 cells/uL NEUTROPHILS 72.6 LYMPHOCYTES 19.3 MONOCYTES 6.2 EOSINOPHILS 1.3 BASOPHILS 0.6 MAGNESIUM (622) Reviewed date:10/03/2024 12:47:31 PM Interpretation: Performing Lab:RADHA [employer], [facility] HospitalKgnoWU[address] Kuldeep Tejeda Notes/Report: NON-FASTING; NON-FASTING; NON-FASTING; NON-FASTING; NON-FAST MAGNESIUM 2.1 1.5-2.5 mg/dL COMPREHENSIVE METABOLIC PANE L (86421) Reviewed date:10/04/2024 09:11:01 AM Interpretation: Performing Lab:RADHA [employer] BlL[address], [facility] HospitalByxfKJ[address] Kuldeep Tejeda Notes/Report: NON-FASTING; NON-FASTING; NON-FASTING; NON-FASTING; [...] 18 10-35 U/L ALT 18 6-29 U/L LIPID PANEL, STANDARD (7600) Reviewed date:10/04/2024 09:11:01 AM Interpretation: Performing Lab:RADHA, [employer] [address], [facility] HospitalPveoEJ[address] Kuldeep Tejeda Notes/Report: NON-FASTING; NON-FASTING; NON-FASTING; NON-FASTING; [...] LDL-C. Barrington QURESHI et al. BAL. 2013;310(19): 3646-8289 (http://education.Attensa.Calibrus/faq/EPF907) CHOL/HDLC RATIO 2.4 <5.0 (calc) NON HDL CHOLESTEROL 85 <130 mg/dL (calc) For patients with diabetes plus 1 major ASCVD risk factor, treating to a non-HDL-C goal of <100 mg/dL (LDL-C of <70 mg/dL) is considered a therapeutic option. Reason For Referral Reason Barium Swallow UGI Diagnosis 1 Dyspepsia (R10.13) Referral Organization [facility] Referring Provider First Name Svetlana Referring Provider Last Name Brittani Referring Provider Speciality Family Meghana oneal Referred Organization [facility] Referred Address [address] [facility], [place], [place],[address],[place] Referred Provider Specialty Diagnostic R adiology General Notes Hilda Goodman 2023 02:28:26 PM > Referral Priority Routine Medications Medication SIG (Take, Route, Frequency, Duration) Notes Start Date End Date Status metFORMIN HCl 500 mg take 2 tabs with breakfast and 1 tab with evening meal twice a day; Duration: 30 days Active methIMAzole 10 mg TAKE ONE TABLET BY [...] review and pick correct strength-formulatio n from Sqrrl options. If intended option is not shown, [...] W/U Status Risk Notes Problem Essential hypertension (58490491) Essential hypertension (I10) Active confirmed Problem Murmur (568598754) Murmur (R01.1) Active confir med Problem Hyperlipidemia (18621001) Other and unspecified hyperlipidemia (E78.5) Active confirmed Problem Hyperthyroidism (10246667) Hyperthyroidism (E05.90) Active confirmed Problem Overactive urinary bladder (disorder) (623946489) OAB (overactive bladder) (N32.81) Active confirmed Problem Use of anticoagulation (752056596) Chronic anticoagulation (Z79.01) Active confirmed Problem Type II diabetes mellitus without complication (217282296) Type 2 diabetes mellitus without complication, without long-term current use of insulin (E11.9) Active confirmed Problem Constipation (74500300) Unspecified constipation (K59.00) Active confirmed Problem Midline cystocele (527090934) Vaginal prolapse (N81.10) Active confirmed Problem Type II diabetes mellitus without complication (935178285) New onset type 2 diabetes mellitus (E11.9) Active confirmed Problem Chronic deep venous thrombosis of right lower extremity (disorder) (140903383656283) Chronic deep vein thrombosis (DVT) of right lower extremity, unspecified vein (I82.501) Active confirmed Vital Signs Heart Rate 78 /min 01/02/2025 Temperature 97.9 degrees Fahrenheit 01/02/2025 Blood pressure diastolic 70 mm Hg 01/02/2025 Height 64.75 in 01/02/2025 Blood pressure systolic 128 mm Hg 01/02/2025 Weight 150 lbs 01/02/2025 BMI 25.15 kg/m2 01/02/2025 Encounters Encounter Location Date Provider Diagnosis [facility] [address] [place] [address] 10/07/2024 Provider Migration [facility] [address] [place] [address] 04/27/2024 Svetlana Brittani Recurrent deep vein thrombosis (DVT) I82.409 ; Type 2 diabetes mellitus without complication, without long-term current use of insulin E11.9 ; Hyperthyroidism E05.90 and Dyspepsia R10.13 [facility] [address] [facility] [address] [place], [place] [address] 07/20/2024 Svetlana Brittani Acute non-recurrent maxillary sinusitis J01.00 [facility] [address] [facility] [address] [place] [address] 09/28/2024 Svetlana Peter Type 2 diabetes mellitus without complication, without long-term current use of insulin E11.9 ; Recurrent deep vein thrombosis (DVT) I82.409 ; Hyperthyroidism E05.90 ; Malaise R53.81 and SOB (shortness of breath) R06.02 [facility] [address] [place] [address] 11/08/2024 Jerman Velez Chronic deep vein thrombosis (DVT) of right lower extremity, unspecified vein I82.501 and Pulmonary embolism, unspecified chronicity, unspecified pulmonary embolism type, unspecified whether acute cor pulmonale present I26.99 [facility] [address] [place] [address] 01/02/2025 Sarah Florence Medicare annual wellness visit, [...] Essential hypertension I10 and Vaginal prolapse N81.10 [facility] [address] [place] [address] 04/27/2024 [facility] Dyspepsia R10.13 [facility] [address] [place] [address] 05/15/2024 [facility] [address] [place] [address] 07/13/2024 [facility] History of DVT of lo wer extremity Z86.718 [facility] [address] [facility] [address] [place] [address] 11/04/2024 [facility] [address] [facility] [address] [place] [address] 01/03/2025 [facility] [address] [place] [address] 01/24/2025 Svetlana Peter Assessments Encounter Date Diagnosis (ICD Code) Assessment Notes Treatment Notes Treatment Clinical Notes Section Notes 04/27/2024 Type 2 diabetes mellitus without complication, without long-term current use of insulin (ICD-10 - E11.9) Update labs today as noted. I encouraged her to bring her glucometer by the office so we can show her how to use this correctly. Continue dietary changes, has done an excellent job with weight loss. 04/27/2024 Recurrent deep vein thrombosis (DVT) (ICD-10 - I82.409) Continue warfarin, [facility] Coumadin clinic for monitoring 04/27/2024 Dyspepsia [...] thrombosis (DVT) (ICD-10 - I82.409) Continue warfarin, [facility] Coumadin clinic for monitoring 11/08/2024 Chronic [...] PGM gene, FVL, LA, anti-cardiolipin , and anti-Yabc5Nmabay rotein (cannot interpret C, S, or AT def in Pt on warfarin therapy)__but given age, significant thromboses hx as above would be unlikely to knowledge management advisor -would reccomend Pt remain on warfarin pre-operatively, [...] thrombosis (DVT) (ICD-10 - I82.409) Continue warfarin, [facility] Coumadin clinic for monitoring 01/02/2025 Hyperthyroidism (ICD-10 - E05.90) continue methimazole 09/28/2024 Hyperthyroidism (ICD-10 - E05.90) continue methimazole 04/27/2024 Hyperthyroidism (ICD-10 - E05.90) continue methimazole 04/27/2024 Dyspepsia (ICD-10 - R10.13) Recommend continue PPI therapy but we will order a barium swallow to evaluate esophageal function and severity of reflux 09/28/2024 Malaise (ICD-10 - R53.81) likely due to incontinence, bladder prolapse, nocturia. has FU with ELECTRONIC TEST TECHNICIAN to review options 01/02/2025 Dyspepsia (ICD-10 - R10.13) improved with treatment 01/02/2025 Unspecified constipation (ICD-10 - K59.00) stable on current regimen, discussed prevention of constipation postoperatively 09/28/2024 SOB (shortness of breath) (ICD-10 - R06.02) likely multifactoral...w ill need cardiac clearance if she does opt for hysterectomy 01/02/2025 Other and unspecified hyperlipidemia (ICD-10 - E78.5) continue statin therapy, goal LDL < 100 01/02/2025 Chronic anticoagulation (ICD-10 - Z79.01) INR in goal range today 01/02/2025 Murmur (ICD-10 - R01.1) echo stable in 202301/02/2025 OAB (overactive bladder) (ICD-10 - N32.81) following with ELECTRONIC TEST TECHNICIAN 01/02/2025 Type 2 diabetes mellitus without complication, [...] Treatment Pending Test Test Name Order Date M-Microalb/Creat Ratio, Randm Ur 025 FERRITIN (457) 12/23/2023 Next Appt Details Provider Name:Svetlana Carrillo ce, 04/05/2025 11:00:00 AM, [address] [facility] [address], [place], [address], Insurance Providers Payer Name Payer Address Payer Phone Subscriber Number Group Number Insured Name Patient Relationship to Insured Coverage Start Date Coverage End Date [place]IC[place] [address] [place] [address] [phone] [id number] Kim Soria Self - patient is the insured [employer] [facility] [address] [address] [place] [address] [id number] Kim Soria Self - patient is the insured [employer] [address] [place] [address] [phone] ACL Kim Soria Self - patient is the insured Medical (General) History Medical History History ICD Code Hyperthyroidism HLD DVT/PT on warfarin Degenerative arthritis Heart murmur Rt Knee Arthritis Diabetes Mellitus Surgical History Surgery Date(Month/Year) hernia repair tubal ligation cataract removal
[2025-02-02 10:52] LABS: PHA INR Fingerstick 2.1 (0.9-1.1)
== END 2025-02-02 10:54 ==
LOC: ACC 10:20
PROVIDERS: PCP Nurse Practitioner Family; Visit Provider Nurse Practitioner Family
DX: Z79.01 Long term (current) use of anticoagulants (principal)
CPT/HCPCS: 85610; 99211; G0463

== ENCOUNTER 2025-03-20 10:42 | Outpatient (CLI) | payer MEDICARE, OTHER, SELFPAY ==
--- OUTSIDE RECORDS SUMMARY | 2024-10-07 17:30 | XMS_ITS ---
Author Organization [facility] Address [address] [place] [address] Care Team Providers Care Appliance Line Assembler Name Role Phone Svetlana Peter Primary Care Provider SVETLANA PETER Unavailable Unavaila ble Migration, Provider Unavailable Unavailable [facility] Encounter Medications Medication SIG (Take, Route, Frequency, Duration) Notes Start Date End Date Status metFORMIN HCl 500 MG 1 tab(s) orally 2 times a day; Duration: 90 days Active methIMAzole 10 MG 1 tab(s) orally daily; Duration: 90 days Active Triamcinolone Acetonide 0.1 % 1 kwadwo applied topically 2 times a day; Duration: 14 days 11/11/2023 Active DILTIAZEM (EQV-CARDIZEM CD) 180 MG/24 HOURS 1 CAP(S) ORALLY ONCE A DAY; Duration: 90 DAYS *Please review for potential replacement for e-prescription and drug interaction check* Active Century - 1 tab(s) orally once a day Active Warfarin Sodium 2.5 MG 1 tab(s) orally once a day; Duration: 30 days 07/13/2024 Active Atorvastatin Calcium 40 MG 1 tab(s) orally once a day; Duration: 30 days Active Tylenol 325 MG 2 tab(s) orally every 4 hours prn Active Calcium 600 + D 600 MG-20 MCG 1 TAB(S) ORALLY ONCE A DAY *Please review and pick correct strength-formulatio n from [facility] options. If intended option is not shown, discontinue and re-order from Quick Search* Active Encounters Encounter Location Date Provider Diagnosis [facility] [address] [place] [facility] [address] [place] [address] 10/07/2024 Provider Migration Plan Of Treatment Next Appt Details Provider Name:Svetlana Carrillo ce, 04/05/2025 11:00:00 AM, [address], [address], [place], [address], Progress Notes * Kim DIAZ IDOB:1949 (74 yo F)Acc No.[id number]:10/07/2024 Patient: Kim MCLAUGHLIN I Provider: Vinny regalado Migration :1950 A ge:74 Y S ex:Female Date:10/07/2024 Address:[address] [place] [address] , [place], [id number] Pcp:Svetlana Peter Subjective: * Chief Complaints: * 1 . Multum To Medispan Conversion Encounter. * Medical History: * Medications: T aking Tylenol 325 MG Tablet 2 tab(s) orally every 4 hours , Notes to Pharmacist: prn, Taking Calcium 600 + D 600 MG-20 MCG TABLET 1 TAB(S) ORALLY ONCE A DAY , Notes to Pharmacist: *Please review and pick correct strength-formulation from [facility] options. If intended option is not shown, discontinue and re-order from Quick Search*, Taking Century - Tablet 1 tab(s) orally once a day , Taking Triamcinolone Acetonide 0.1 % Ointment 1 kwadwo applied topically 2 times a day , Taking DILTIAZEM (EQV-CARDIZEM CD) 180 MG/24 HOURS CAPSULE, EXTENDED RELEASE 1 CAP(S) ORALLY ONCE A DAY , Notes to Pharmacist: *Please review for potential replacement for e-prescription and drug interaction check*, Taking metFORMIN HCl 500 MG Tablet 1 tab(s) orally 2 times a day , Taking methIMAzole 10 MG Tablet 1 tab(s) orally daily , Taking Warfarin Sodium 2.5 MG Tablet 1 tab(s) orally once a day , Taking Atorvastatin Calcium 40 MG Tablet 1 tab(s) orally once a day Objective: * Vitals: Assessment: Plan: * Treatment: * * Electronic signature of Prov orir Migration on 03/20/2025 at 11:07 AM EDT Sign off status: Pending * Provider: Vinny regalado Migration Date: 0 10/07/2024 Generated for Marichuy mcdowell/Logan/Hero on: 0 03/20/2025 11:07 AM EDT
--- OUTSIDE RECORDS SUMMARY | 2025-01-11 07:00 | XMS_ITS ---
Author Organization [facility] IM PE D T[facility] Address [address] [facility] [address] [facility] [address] [place] [address] Care Team Providers Care Senior Corporate Strategy Manager Name Role Phone Svetlana Peter Primary Care Provider [phone] SVETLANA PETER Unavailable Unavaila ble REASON FOR VISIT 4 Month F/U Encounters Encounter Location Date Provider Diagnosis [place] [facility] [address] [place] [address] [facility] [address] [place] [address] 01/11/2025 Svetlana Peter Plan Of Treatment Next Appt Details Provider Name:Svetlana Carrillo ce, 04/05/2025 11:00:00 AM, [address] [place] [address] [facility], [address], [place], [address], Progress Notes * Kim DIAZ IDOB:1949 (74 yo F)Acc No.[id number]:01/11/2025 Progress Notes Patient: Kim MCLAUGHLIN I Provider: REBEKAH Vides :1950 A ge:74 Y S ex:Female Date:01/11/2025 Address:[address] [place] [address] [address] , [id number] Subjective: * Chief Complaints: * 1 . 4 Month F/U. 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
--- OUTSIDE RECORDS SUMMARY | 2025-03-20 11:07 | XMS_ITS | Patient Health Record ---
Author Organization [facility] Address [address] [place] [address] Care Team Providers Care And Drying Supervisor Cooking Casing Name Role Phone Javon Peter Primary Care Provider JAVON PETER Unavailable Unavaila Jerman Funez Unavailable [phone] Migration, Provider Unavailable Unavailable Allergies No Known Allergies Results Component Value Reference Range Notes M-PHA INR Fingerstick Reviewed date:01/22/2025 06:09:52 PM Interpretation: Performing Lab: Notes/Report: POCINRFS 2.0 0.9-1.1 Results sent to: Javon Peter APRN [...] PREVENTION OF SYSTEMIC EMBOLISM SECONDARY TO AMI H-MALBCREA Reviewed date:01/22/2025 06:13:53 PM Interpretation: Performing [...] SECONDARY TO AMI M-PHA INR Fingerstick Reviewed date:02/03/2025 09:47:09 PM Interpretation: Performing Lab: Notes/Report: POCINRFS 2.1 0.9-1.1 Results sent to: Javon Peter APRN Pharmacist recommendation for Warfarin therapy is: INR TODAY VIA FINGERSTICK IS 2.1. RECOMMEND PATIENT CONTINUE WEEKLY WARFARIN DOSE AT 2.5MG DAILY. PATIENT WILL F/U IN 6 WEEKS. FOR DETAILED INFORMATION-PLEASE REVIEW PROGRESS NOTE [...] Performing Lab: Notes/Report: M-PHA INR Fingerstick Reviewed date:06/05/2024 05:02:53 PM [...] Reviewed date:10/04/2024 09:11:01 AM Interpretation: Performing Lab:RADHA [employer] Fr[employer]ise [id number] [facility] HospitalAyqtPN[address] Kuldeep Tejeda Notes/Report: NON-FASTING; NON-FASTING; NON-FASTING; NON-FASTING; [...] LDL-C. Barrington QURESHI et al. BAL. 2013;310(19): 5493-0611 (http://education.ki work.com/faq/UJK475) CHOL/HDLC RATIO 2.4 <5.0 (calc) NON HDL CHOLESTEROL 85 <130 mg/dL (calc) For patients with diabetes plus 1 major ASCVD risk factor, treating to a non-HDL-C goal of <100 mg/dL (LDL-C of <70 mg/dL) is considered a therapeutic option. COMPREHENSIVE METABOLIC PANE (27820) Reviewed date:10/04/2024 09:11:01 AM Interpretation: Performing Lab:RADHA Viraloid-BeLocal [id number] Source [employer]el [facility], Mer[facility] HospitalKryyEU[address] Kuldeep Tejeda Notes/Report: NON-FASTING; NON-FASTING; NON-FASTING; NON-FASTING; [...] Reviewed date:10/03/2024 12:47:31 PM Interpretation: Performing Lab:RADHA Viraloid-Ozmotae1355 Source [employer] [place], CloudfinderQawgAV[address] Kuldeep Tejeda Notes/Report: NON-FASTING; NON-FASTING; NON-FASTING; NON-FASTING; NON-FAST MAGNESIUM 2.1 1.5-2.5 mg/dL CBC (INCLUDES DIFF/PLT) (639 9) Reviewed date:10/04/2024 09:11:01 AM Interpretation: Performing Lab:RADHA Viraloid-Ozmotae1355 Source [employer], CloudfinderGrmqUQ[address] Kuldeep Tejeda Notes/Report: NON-FASTING; NON-FASTING; NON-FASTING; NON-FASTING; [...] MPV 11.1 7.5-12.5 fL ABSOLUTE NEUTROPHILS 6316 8791-1027 cells/uL ABSOLUTE LYMPHOCYTES 2272 997-3212 cells/uL ABSOLUTE MONOCYTES 539 200-950 cells/uL ABSOLUTE EOSINOPHILS 113 15-500 cells/uL ABSOLUTE BASOPHILS 52 0-200 cells/uL NEUTROPHILS 72.6 LYMPHOCYTES 19.3 MONOCYTES 6.2 EOSINOPHILS 1.3 BASOPHILS 0.6 HEMOGLOBIN A1c (496) Reviewed date:10/04/2024 09:11:01 AM Interpretation: Performing Lab:RADHA Viral[employer]-BeLocal [id number], ON DEM[place] MicroelectronicsWknsQF[address] Kuldeep Tejeda Notes/Report: NON-FASTING; NON-FASTING; NON-FASTING; NON-FASTING; [...] Reviewed date:09/30/2024 09:48:13 PM Interpretation: Performing Lab:RADHA Vir[address]oid-[address], [place] MicroelectronicsIhieIR[address] Kuldeep Tejeda Notes/Report: NON-FASTING; NON-FASTING; NON-FASTING; NON-FASTING; NON-FAST VITAMIN B12 870 987-5588 pg/mL TSH W/REFLEX TO FT4 (02023) Reviewed date:10/04/2024 09:11:01 AM Interpretation: Performing Lab:RADHA [address], [place] VadcQA[address] Kuldeep Tejeda Notes/Report: NON-FASTING; NON-FASTING; NON-FASTING; NON-FASTING; NON-FAST NON-FASTING; NON-FASTING; NON-FASTING; NON-FASTING; NON-FAST TSH W/REFLEX TO FT4 0.08 0.40-4.50 mIU/L T4, FREE 1.1 0.8-1.8 ng/dL Barium : Upper GI Series Reviewed date:05/15/2024 01:05:19 PM Interpretation: Performing Lab: Notes/Report: BASIC METABOLIC PANEL (33259 ) Reviewed date:05/01/2024 08:57:08 AM Interpretation: Performing Lab:RADHA Viraloid-Ozmotae1355 Source [employer], [place] [employer] MicroelectronicsOantXI[address] Kuldeep Tejeda Notes/Report: NON-FASTING; NON-FASTING; NON-FASTING GLUCOSE [...] Reviewed date:05/01/2024 08:57:08 AM Interpretation: Performing Lab:RADHA Viraloid-Ozmotae1355 [employer] TavonKabam, [place] MicroelectronicsLjtkJR[address] Kuldeep Tejeda Notes/Report: NON-FASTING; NON-FASTING; NON-FASTING HEMOGLOBIN [...] diabetes for children. TSH W/REFLEX TO FT4 (64948) Reviewed date:05/01/2024 08:57:08 AM Interpretation: Performing Lab:RADHA SA Ignitee1355 Source [employer] [place], [place] MicroelectronicsPrgnRI[address] Kuldeepluis alberto Tejeda Notes/Report: NON-FASTING; NON-FASTING; NON-FASTING NON-FASTING; NON-FASTING; NON-FASTING TSH W/REFLEX TO FT4 0.12 0.40-4.50 mIU/L T4, FREE 1.0 0.8-1.8 ng/dL M-Hemoglobin A1C Reviewed date:01/24/2025 03:27:30 PM Interpretation: Performing Lab: Notes/Report: HGBA1C 8.3 4.0-6.0 % < 6% Non-Diabetic Level < 7% Controlled Diabetic Level > 8% Poorly Controlled Diabetic Level M-PHA INR Fingerstick Reviewed date:08/31/2024 01:44:35 PM [...] SECONDARY TO AMI Reason For Referral Reason Barium Swallow UGI Diagnosis 1 Dyspepsia (R10.13) [facility] Referring Provider First Name Javon Referring Provider Last Name Brittani Referring Provider Speciality Family Pra ctice Referred Organization [facility] Referred Address [address] [facility] [address], [place],[address],[place] Referred Provider Specialty Diagnostic R adiology General [...] review and pick correct strength-formulatio n from [facility] Wellness options. If intended option is not shown, [...] W/U Status Risk Notes Problem Essential hypertension (81185267) Essential hypertension (I10) Active confirmed Problem Murmur (118787272) Murmur (R01.1) Active confir med Problem Hyperlipidemia (99874201) Other and unspecified hyperlipidemia (E78.5) Active confirmed Problem Hyperthyroidism (55924901) Hyperthyroidism (E05.90) Active confirmed Problem Overactive urinary bladder (disorder) (697162957) OAB (overactive bladder) (N32.81) Active confirmed Problem Use of anticoagulation (949096609) Chronic anticoagulation (Z79.01) Active confirmed Problem Type II diabetes mellitus without complication (540268435) Type 2 diabetes mellitus without complication, without long-term current use of insulin (E11.9) Active confirmed Problem Constipation (93065523) Unspecified constipation (K59.00) Active confirmed Problem Midline cystocele (958926407) Vaginal prolapse (N81.10) Active confirmed Problem Type II diabetes mellitus without complication (155628519) New onset type 2 diabetes mellitus (E11.9) Active confirmed Problem Chronic deep venous thrombosis of right lower extremity (disorder) (296651775719948) Chronic deep vein thrombosis (DVT) of right lower extremity, unspecified vein (I82.501) Active confirmed Vital Signs Heart Rate 78 /min 01/02/2025 Temperature 97.9 degrees Fahrenheit 01/02/2025 Blood pressure diastolic 70 mm Hg 01/02/2025 Height 64.75 in 01/02/2025 Blood pressure systolic 128 mm Hg 01/02/2025 Weight 150 lbs 01/02/2025 BMI 25.15 kg/m2 01/02/2025 Encounters Encounter Location Date Provider Diagnosis [facility] [address] [place], [place] [address] 10/07/2024 Provider Migration [facility] [address] [place], [place] [address] 04/27/2024 Javon Peter Recurrent deep vein thrombosis (DVT) I82.409 ; Type 2 diabetes mellitus without complication, without long-term current use of insulin E11.9 ; Hyperthyroidism E05.90 and Dyspepsia R10.13 [facility] [address] [facility] [address] [place], [place] [address] 07/20/2024 Javon Peter Acute non-recurrent maxillary sinusitis J01.00 [facility] [address] [facility] [address] [place], [place] [address] 09/28/2024 Javon Peter Type 2 diabetes mellitus without complication, without long-term current use of insulin E11.9 ; Recurrent deep vein thrombosis (DVT) I82.409 ; Hyperthyroidism E05.90 ; Malaise R53.81 and SOB (shortness of breath) R06.02 [facility] [address] [facility] [address] [place], [place] [address] 11/08/2024 Jerman Velez Chronic deep vein thrombosis (DVT) of right lower extremity, unspecified vein I82.501 and Pulmonary embolism, unspecified chronicity, unspecified pulmonary embolism type, unspecified whether acute cor pulmonale present I26.99 [facility] [address] [facility] [address] [place], [place] [address] 01/02/2025 Sarah Florence Medicare annual wellness visit, [...] Essential hypertension I10 and Vaginal prolapse N81.10 [facility] [address] [facility] [address] [place], [place] [address] 04/27/2024 [facility] Dyspepsia R10.13 [facility] [address] [facility] [address] [place], [place] [address] 05/15/2024 [facility] [address] [facility] [address] [place] [address] 07/13/2024 [facility] History of DVT of lo wer extremity Z86.718 [facility] [address] [facility] [address] [place] [address] 11/04/2024 [facility] [address] [facility] [address] [place], [place] [address] 01/03/2025 [facility] [address] [facility] [address] [place] [address] 01/24/2025 [facility] Assessments Encounter Date Diagnosis (ICD Code) [...] thrombosis (DVT) (ICD-10 - I82.409) Continue warfarin, [facility] Coumadin clinic for monitoring 04/27/2024 Dyspepsia [...] thrombosis (DVT) (ICD-10 - I82.409) Continue warfarin, [facility] Coumadin clinic for monitoring 11/08/2024 Chronic [...] PGM gene, FVL, LA, anti-cardiolipin , and anti-Eahk3Rvrbau rotein (cannot interpret C, S, or AT def in Pt on warfarin therapy)__but given age, significant thromboses hx as above would be unlikely to ion exchange operator -would reccomend Pt remain on warfarin pre-operatively, [...] thrombosis (DVT) (ICD-10 - I82.409) Continue warfarin, [facility] Coumadin clinic for monitoring 01/02/2025 Hyperthyroidism [...] incontinence, bladder prolapse, nocturia. has FU with [facility] to review options 01/02/2025 Dyspepsia (ICD-10 - [...] (overactive bladder) (ICD-10 - N32.81) following with [facility] 01/02/2025 Type 2 diabetes mellitus without complication, [...] [address], [place], [address], Insurance Providers Payer Name Payer Address Payer Phone Subscriber Number Group Number Insured Name Patient Relationship to Insured Coverage Start Date Coverage End Date [place] [address] [place] [address] [id number] Kim Soria Self - patient is the insured [employer] [place] [facility] [address] [place] [address] [id number] Kim Soria Self - patient is the insured [employer] [address] [place] [address] [phone] [facility] Kim Soria Self - patient is the insured Medical (General) History Medical History History ICD Code Hyperthyroidism HLD DVT/PT on warfarin Degenerative arthritis Heart murmur Rt Knee Arthritis Diabetes Mellitus Surgical History Surgery Date(Month/Year) hernia repair tubal ligation cataract removal
--- OUTSIDE RECORDS SUMMARY | 2025-03-20 11:07 | XMS_ITS | Clinical Summary ---
Author Organization [facility] Address [address] [place] [id number] Care Team Providers Care Accounting Policy Consultant Name Role Phone Dixon Chapman MD Primary Care Provider Allergies No known active allergies Medications ferrous [...] ventricular rate of 91 beats per minute, VA interval of 164 ms, and QRS duration [...] 1999 ZOSTER VACCINE (1 of 2) 1999 RSV Vaccine - Adults (1 - 1-dose 75+ series) COVID-19 Vaccine ( - season) 2025 INFLUENZA VACCINE 04/04/2025 Insurance [facility] MEDICARE A & B Care Teams Accounting Policy Consultant Relationship Specialty Start Date End Date Dixon Chapman MD [address] [place], [place] [id number] PCP - General Family Medicine 01/22/16
[2025-03-20 14:19] LABS: PHA INR Fingerstick 3.1 (0.9-1.1)
== END 2025-03-20 14:21 ==
LOC: ACC 10:43
PROVIDERS: PCP Nurse Practitioner Family; Visit Provider Nurse Practitioner Family
DX: I82.409 Acute embolism and thrombosis of unspecified deep veins of unspecified lower extremity (principal); I26.99 Other pulmonary embolism without acute cor pulmonale; Z79.01 Long term (current) use of anticoagulants
CPT/HCPCS: 85610; 99211; G0463

== ENCOUNTER 2025-04-23 10:50 | Outpatient (CLI) | payer MEDICARE, OTHER, SELFPAY ==
[2025-04-23 11:52] LABS: PHA INR Fingerstick 1.2 (0.9-1.1)
== END 2025-04-23 11:54 ==
LOC: ACC 10:51
PROVIDERS: PCP Nurse Practitioner Family; Visit Provider Nurse Practitioner Family
DX: I26.99 Other pulmonary embolism without acute cor pulmonale (principal); I82.409 Acute embolism and thrombosis of unspecified deep veins of unspecified lower extremity; Z79.01 Long term (current) use of anticoagulants
CPT/HCPCS: 85610; 99211; G0463

== ENCOUNTER 2025-04-30 11:16 | Outpatient (CLI) | payer MEDICARE, OTHER, SELFPAY ==
--- OUTSIDE RECORDS SUMMARY | 2024-07-27 08:00 | XMS_ITS ---
Author Organization [facility] Address [address] [facility] [facility] [address] [place], [place] [address] Care Team Providers Care Brick Pointer Name Role Phone Svetlana Peter Primary Care Provider SVETLANA PETER Unavailable Unavaila ble REASON FOR VISIT 3 Month F/U Encounters Encounter Location Date Provider Diagnosis [facility] [address] [place], [place] [address] 07/27/2024 Svetlana Peter Plan Of Treatment Next Appt Details Provider Name:Svetlana Carrillo ce, 08/09/2025 11:00:00 AM, [address], [address], [place], [place], [address], Progress Notes * Kim DIAZ IDOB:1949 (74 yo F)Acc No.[id number]:07/27/2024 Progress Notes Patient: Chandrika EVINASHLEIGHSky Kim Garcia Provider: REBEKAH Vides :1950 A ge:74 Y S ex:Female Date:07/27/2024 Address:[address] [facility] [address] , [phone] Subjective: * Chief Complaints: * 1 . 3 Month F/U. * Medical History: Objective: * Vitals: Assessment: Plan: * Treatment: * * Electronic signature of Whit Peter APRN on 04/30/2025 at 11:32 AM EDT Sign off status: Pending * Provider: REBEKAH Vides Date: 0 07/27/2024 Generated for Marichuy mcdowell/Logan/Hero on: 1 11:32 AM EDT
--- OUTSIDE RECORDS SUMMARY | 2024-10-07 17:30 | XMS_ITS ---
Author Organization [facility] Address [address] [place] [address] Care Team Providers Care Supervisor Park Workers Name Role Phone Svetlana Peter Primary Care Provider SVETLANA PETER Unavailable Unavaila ble Migration, Provider Unavailable Unavailable [facility] Encounter Medications Medication SIG (Take, [...] review and pick correct [facility]ulatio [facility]. If intended option is not shown, discontinue and re-order from Quick Search* Active Encounters Encounter Location Date Provider Diagnosis [facility] [address] [place] [facility] [address] [place] [address] 10/07/2024 Provider Migration Plan Of Treatment Next Appt Details Provider Name:Svetlana Carrillo ce, 08/09/2025 11:00:00 AM, [address], [address], [place], [address], Progress Notes * Kim DIAZ IDOB:1949 (74 yo F)Acc No.[id number]:10/07/2024 Patient: Kim MCLAUGHLIN I Provider: Vinny regalado Migration :1950 A ge:74 Y S ex:Female Date:10/07/2024 Address:[address] [place] [address] , [place], [id number] Pcp:Svetlana Peter Subjective: * Chief Complaints: * 1 . Multum To Medispan Conversion Encounter. * Medical History: * Medications: T aking Tylenol 325 MG Tablet 2 tab(s) orally every 4 hours , Notes to Pharmacist: prn, Taking Calcium 600 + D 600 MG-20 MCG TABLET 1 TAB(S) ORALLY ONCE A DAY , Notes to Pharmacist: *Please review and pick correct strength-formulation from [facility] options. If intended option is not shown, [...] Treatment: * * Electronic signature of Prov ider Migration on 04/30/2025 at 11:32 AM EDT Sign off status: Pending * Provider: Vinny regalado Migration Date: 0 10/07/2024 Generated for Marichuy mcdowell/Logan/Hero on: 1 11:32 AM EDT
--- OUTSIDE RECORDS SUMMARY | 2025-01-11 07:00 | XMS_ITS ---
Author Organization [facility] IM PE D [facility] Address [address] [facility] [address] [facility] [address] [place] [address] Care Team Providers Care Live Games Dealer Name Role Phone Svetlana Peter Primary Care Provider SVETLANA PETER Unavailable Unavaila ble REASON FOR VISIT 4 Month F/U Encounters Encounter Location Date Provider Diagnosis [place] [facility] [address] [place] [address] [facility] [address] [place] [address] 01/11/2025 Svetlana Peter Plan Of Treatment Next Appt Details Provider Name:Svetlana Carrillo ce, 08/09/2025 11:00:00 AM, [address] [place] [address] [facility], [address], [place], [address], Progress Notes * Kim DIAZ IDOB:1949 (74 yo F)Acc No.[id number]:01/11/2025 Progress Notes Patient: Kim MCLAUGHLIN I Provider: REBEKAH Vides :1950 A ge:74 Y S ex:Female Date:01/11/2025 Address:[address] [place] [address] [address] , [id number] Subjective: * Chief Complaints: * 1 . 4 Month F/U. 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
--- OUTSIDE RECORDS SUMMARY | 2025-03-22 03:45 | XMS_ITS | Continuity of Care Document ---
Author Organization [facility] Phone Care Team Providers Care Air Brush Artist Name Role Phone SOURAV PFEIFFER Admitting JAVON RODRÍGUEZ Primary Care SOURAV PFEIFFER Unavailable SOURAV PFEIFFER Primary Attending RESULTS Patient: JOE HAMILTON I Date of : 1950 1 LABORATORY RESULTS Information is not available LABORATORY NARRATIVE RESULTS Information is not available RADIOLOGY RESULTS ORDER 200: MRI EXTREM LWR JANIYA INT RT WO (LOINC: [id number]) ORDER DATE: March 20, 2025 6:32:[address] [facility] PERFORMING LAB: [address] [id number] Final Result Date: March 20, 2025 7:14:[address] [place] [address] Name: ALFONSO DIAZ Exam Date: 03/20/2025 : 1950 Age 74 years Gender: F Physician: SOURAV PFEIFFER Facility: [facility] Facility HSV: Outpatient Exam: MRI EXTREM LWR JOINT RT WO EXAMINATION: MR LOWER EXTREMITY JOINT WITHOUT IV CONTRAST RIGHT INDICATION: knee pain . Right knee pain and swelling. No known injury. TECHNIQUE: Multiplanar multisequence MRI of the right knee. Unless specified, no imaging follow-up is recommended for incidental findings. COMPARISON: Right knee x-rays dated February 22, 2024. FINDINGS: Mild joint effusion. Grade 4 cartilage patellae. The medial and lateral patellar retinacula appear intact. The medial and lateral tendons appear intact. No popliteal fossa mass. The extensor mechanism appears intact. The anterior and posterior cruciate ligaments appear intact. Radial tear of the body segment of the lateral meniscus. Myxoid degeneration of the posterior horn of lateral meniscus. Radial tear of the posterior horn of the medial meniscus. The medial and lateral collateral ligaments appear intact. The popliteus tendon and popliteofibular ligament appear intact. Thinning of the lateral condylar cartilage. No osteochondral lesion. Spurring of the lateral articular margin. Lateral femoral condyle osteoedema, likely reactive. No evidence of a marrow replacing process. No evidence of a marrow replacing process or fracture. Superficial soft tissues are unremarkable. There is a complex ganglion cyst arising from the lateral aspect of the knee. The medial wall of the cyst is contiguous with the lateral meniscus. The cyst measures approximately 2.7 cm x 2.8 cm x 3.2 cm. IMPRESSION: Abnormal examination, with findings as above. Electronically signed by: Laura Hannah DO 03/20/2025 03:50 PM EDT RP Dictated By: LAURA HANNAH Transcribed By: Transcribed On: 03/20/2025 3:14 PM Electronically signed by: LAURA HANNAH 03/20/2025 Thank you for referring ALFONSO DIAZ to [facility]. Legally authenticated by CAMDEN SANCHEZ DO 2025-03-20 15:14:18 PATHOLOGY NARRATIVE RESULTS Information is not available MICROBIOLOGY RESULTS No Micro Labs/Results Exist for Patient BLOOD ADMIN RESULTS Information is not available MEDICATIONS HOME MEDICATIONS Status RXNORM NDC Medication Dose Route Frequency Dates Comments Reported By Updated By Drug Treatment Unknown DISCHARGE MEDICATIONS Status RXNORM NDC Medication Dose Route Frequency Dates Dis pense Data Comments Physician Updated By No Discharge Medication Info rmation Available INPATIENT MEDICATIONS Status RXNORM NDC Medication Dose Route Frequency Rat e Quantity Dates Indication Dispense Data Comments Physician Updated By No Inpatient Medication Info rmation Available SOCIAL HISTORY SOCIAL HISTORY - Smoking Status SNOMED-CT Social History Element Description Effective Dates Offered Cessation Comment Updated By [id number] Smoking Status Unknown If Ever Smoked SOCIAL HISTORY - Gender Sex: Female SOCIAL HISTORY - Status : status i nformation is not available Intention in Next Year: intention information is not available SOCIAL HISTORY - Assessments Code System Description Status Date Value of Assessment Updated By Comment Assessment Information is no t available SOCIAL HISTORY - Elem Affiliation Elem information is not av ailable SOCIAL HISTORY - Legal Sex Legal Sex information is not available SOCIAL HISTORY - Sexual Behavior Sexual Orientation Gender Identity SNOMED-CT Description SNO MED -CT Description Activity Level No of Partners Partner Type UpdatedBy Information is not available SOCIAL HISTORY - Occupation Occupation information is no t available HEALTH CONCERNS Problems Concern Status Health Concern problem infor mation not available. Smoking Status Status Years Used Consumed packs p er day Health Concern smoking histo ry information not available. Family History Concern Status Health Concern family histor y information not available. ENCOUNTERS ENCOUNTER INFORMATION Reason for Visit M17.11 Admission March 20, 2025 6:13:00 PM [facility] [address] [address] Discharge March 20, 2025 6:13:00 PM [facility] DISCHARGED TO HOME OR SELF CARE ENCOUNTER DIAGNOSES Notes information is not shahana ilable. Code System Diagnosis Onset Date Diagnosis information is not available. ABSTRACT DIAGNOSES Code System Diagnosis Updated By Abatement Date M17.11 ICD10 UNILATERAL PRIMA RY OSTEOARTHRITIS, RIGHT KNEE [id number] on March 15, 2025 1:45:[address] [facility] M17.11 ICD10 UNILATERAL PRIMA RY OSTEOARTHRITIS, RIGHT KNEE [id number] on March 22, 2025 7:45:[address] [facility] CARE TEAM Care Air Brush Artist Role SOURAV PFEIFFER Admitting JAVON RODRÍGUEZ Primary Care SOURAV PFEIFFER Referring SOURAV PFEIFFER Primary Attending CARE TEAM CARE numerical control tool programmer Role on Team Location Telecom Status Start Date End [place] e Updated By MARCOS Ford APRN PCP normal March 15, 2025 1:45:[address] [facility] March 20, 2025 6:13:[address] [facility] [id number] on March 15, 2025 1:45:[address] [facility] KENTRELL Swanson Referring normal March 15, 2025 1:45:[address] [facility] March 20, 2025 6:13:[address] [facility] [id number] on March 15, 2025 1:45:[address] [facility] KENTRELL Swanson Attending normal March 15, 2025 1:45:[address] [facility] March 20, 2025 6:13:[address] [facility] [id number] on March 15, 2025 1:45:[address] [facility] KENTRELL Swanson Admitting normal March 15, 2025 1:45:[address] [facility] March 20, 2025 6:13:[address] [facility] [id number] on March 15, 2025 1:45:[address] [facility]
--- OUTSIDE RECORDS SUMMARY | 2025-04-05 07:00 | XMS_ITS ---
Author Organization [facility] PE D TYRA Address [address] [place] [address] Care Team Providers Care Associate Professor Of Pathology Name Role Phone Javon Peter Primary Care Provider JAVON PETER Unavailable Unavaila ble Allergies No Known Allergies Reason For Referral Reason [facility] Hematology, Dr Barbara lora Diagnosis 1 Recurrent deep vein thrombosis (DVT) (I82.409) Referral Organization [facility] ROHINI XIE Referring Provider First Name Javon Referring Provider Last Name Brittani Referring Provider [facility] Referred Organization [facility] Referred Address [address] [facility], [place],[address],[place] Referred Provider Specialty Hematology/O ncology General Notes Hilda Goodman 2024 12:23:07 PM >sent to Dr. Garrido Referral Priority Routine REASON FOR VISIT 3 Month F/U-fasting Medications Medication SIG (Take, Route, Frequency, Duration) Notes Start Date End Date Status Atorvastatin Calcium 40 mg TAKE ONE TABL ET BY MOUTH ONCE A DAY; Duration: 30 Active Century - 1 tab(s) orally once a day Active Calcium 600 + D 600 MG-20 MCG 1 TAB(S) ORALLY ONCE A DAY Active methIMAzole 10 mg TAKE ONE TABLET BY M OUTH ONCE A DAY; Duration: 30 Active Famotidine 40 MG 1 tablet Orally Once a day; Duration: 90 days 11/04/2024 Active metFORMIN HCl 500 mg take 2 tabs with breakfast and 1 tab with evening meal twice a day; Duration: 30 days Active dilTIAZem HCl ER 180 MG 1 tablet Orally Once a day; Duration: 90 days Active Warfarin Sodium 2.5 mg TAKE ONE TABLET B Y MOUTH ONCE A DAY; Duration: 30 Active Social History Tobacco Use: Social History Observation Description Date Details (start date - stop date) Former Smoker NA - NA Smoking: Question Answer Notes Are you a: former smoker Problems Problem Type SNOMED Code ICD Code Onset Dates Problem Status W/U Status Risk Notes Problem Venous varices (111848479) Complicated varicose veins (I83.899) Active confirmed Vital Signs Temperature 94.3 degrees Fahrenheit 04/05/20 25 Blood pressure systolic 116 mm Hg 04/05/20 25 Blood pressure diastolic 70 mm Hg 025 Heart Rate 80 /min 04/05/2025 Height 64.75 in 04/05/2025 Weight 140.4 lbs 04/05/2025 BMI 23.54 kg/m2 04/05/2025 Encounters Encounter Location Date Provider Diagnosis [facility] T[facility]RA [address] [facility] [address] [place] [address] 04/05/2025 Javon Peetr Recurrent deep vein thrombosis (DVT) I82.409 ; Hyperthyroidism E05.90 ; Chronic anticoagulation Z79.01 ; Murmur R01.1 ; Type 2 diabetes mellitus without complication, without long-term current use of insulin E11.9 ; Essential hypertension I10 ; Complicated varicose veins I83.899 and Pain, joint, knee, right M25.561 Assessments Encounter Date Diagnosis (ICD Code) Assessment Notes Treatment Notes Treatment Clinical Notes Section Notes 04/05/2025 Recurrent deep vein thrombosis (DVT) (ICD-10 - I82.409) Continue warfarin, [facility] Coumadin clinic for monitoring We discussed that the Watchman procedure was designed for patients who are on anticoagulation due to atrial fibrillation which is not the case for her Also discussed that regardless of the etiology of her clots, chronic anticoagulation is the recommendation because of her history of recurrent clots. She also has extensive varicose veins in both lower extremities which increases her risk for recurrence. She is agreeable to consult with Dr. Garrido to seek his opinion as well. 04/05/2025 Hyperthyroidism (ICD-10 - E05.90) continue methimazole 04/05/2025 Chronic anticoagulation (ICD-10 - Z79.01) per [facility] Coumadin Clinic 04/05/2025 Murmur (ICD-10 - R01.1) echo stable in 202304/05/2025 Type 2 diabetes mellitus without complication, without long-term current use of insulin (ICD-10 - E11.9) Goal A1C < 7, will have labs drawn during her consult with Dr Garrido 04/05/2025 Essential hypertension (ICD-10 - I10) mild HTN in the past, stable on diltiazem 04/05/2025 Complicated varicose veins (ICD-10 - I83.899) 04/05/2025 Pain, joint, knee, right (ICD-10 - M25.561) She has tolerated surgery and undergone cardiac clearance in the past 6 months. No additional testing recommended at this time. We will get recommendations regarding her Coumadin and bridge with Lovenox per the Coumadin clinic recommendations once a surgery date has been scheduled. Plan Of Treatment Treatment Notes Assessment Notes Hyperthyroidism continue methimazole Pending Test Test Name Order Date M-Complete Blood Count Auto Diff 025 M-Comprehensive Metabolic Panel 04/05/20 25 M-Hemoglobin A1C 04/05/2025 M-Free T4 (Free Thyroxine) 04/05/2025 M-Thyroid Stimulating Hormone 04/05/2025 Referrals Referral Date Details 04/05/2025 04/05/2025, [facility] Dr Hema Hinojosa, [address] [place], [address], Next Appt Details Follow Up: 4 Months, Reason: DM Provider Name:Javon Carrillo ce, 08/09/2025 11:00:00 AM, [address] [facility], [address], [place], [address], Progress Notes * JOE Kim IDOB:1949 (74 yo F)Acc No.[id number]:04/05/2025 Progress Notes Patient: Kim MCLAUGHLIN I Provider: REBEKAH Vides :1950 A ge:74 Y S ex:Female Date:04/05/2025 Address:[address] [place] [address] , [id number] Subjective: * Chief Complaints: * 1 . 3 Month F/U-fasting. * HPI: g en: Presents today for chronic disease FU. Chandrika mustafa our last visit she underwent total abdominal hysterectomy, reports that she tolerated surgery well. She is very happy with results, resolution of her chronic incontinence and vaginal prolapse. She is supposed to have at least 1 additional follow-up with Dr. Lopez. She has upcoming surgery on her right knee with [facility]. Asking for clearance for that procedure. She has a nodular deformity on the lateral aspect of her knee that has grown in size and is impacting her mobility. Asking again about whether or not she needs to be on anticoagulants for the rest of her life. Asking about a Watchman procedure. Pt notes she has been on Coumadin/warfarin for 20-25 years Had a DVT/PE for the first time in her 30s and was placed on AC following this event; one clot formed following childbirth, and then had multiple recurrent clots, up to 12 per Pt (occured during period of appropriate activity); quit smoking in ([id number]), Only ever been on estrogen cream for HRT, no systemic treatment. Has had clots while taking warfarin in the past. No known workup for hereditary thrombophilias; no known family hx Had rheumatic fever as a child, has a known murmur but has [place] valves No hx of Afib NO hx of CVA/TIA. Glucose at home has been in reasonable range. She does note that in the past 24 hours she has had vomiting, nausea, diarrhea and chills. This was following her flu shot yesterday morning but also could have had some exposure to illness. She is starting to feel better at time of exam today. Prior to that episode her appetite and intake have been good. She is trying to do better with a diabetic diet and has had some weight loss which she attributes to that. * ROS: F UNCTIONAL STATUS: ADLS I [...] D ERMATOLOGY: no R hari. G ASTROENTEROLOGY: See HPI Y es. H eartburn y es, B catalina with prescription. V omiting y es. n o A bdominal pain. D iarrhea y es. n o C onstipation. H EMATOLOGY/LYMPH: Reviewed, [...] requent urination y es. U rinary incontinence y es. N octuria y es, 4 or more. 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 * Surgical History: h ernia repair , tubal ligation , cataract removal , total hysterectomy 01/2025. * Hospitalization/Major Diagno stic Procedure: t otal hysterectomy-[facility] 01/2025. * Family History: F ather: , heart disease, diabetes. M other: , renal cell cancer. P aternal Grand Father: . P aternal Grand Mother: . M aternal Grand Father: . M aternal Grand Mother: . S iblings: alive, brother and 1 sister passed awaybrother- brain tumor. C hilmadi: alive, oldest child - heart diseasearthritis. 1 brother(s) , 5 sister(s) - healthy. 3 son(s) - healthy. . * Social History: S moking A re you a: f ormer smoker. R ecreational drug use: no. Exercise: no. Home smoke detector use: yes. Caffeine: yes, frequency: daily. Living Will: Yes, Patient is a [facility]. She wishes to not receive any blood transfusions.. Alcohol: socially. Sexually active: no. Travel outside [place]: no. * Medications: T aking Calcium 600 + D 600 MG-20 MCG TABLET 1 TAB(S) ORALLY ONCE A DAY , Taking Century - Tablet 1 tab(s) orally once a day , Taking Famotidine 40 MG Tablet 1 tablet Orally Once a day , Taking methIMAzole 10 mg Tablet TAKE ONE TABLET BY MOUTH ONCE A DAY , Taking Warfarin Sodium 2.5 mg Tablet TAKE ONE TABLET BY MOUTH ONCE A DAY , Taking dilTIAZem HCl ER 180 MG Tablet Extended Release 24 Hour 1 tablet Orally Once a day , Taking metFORMIN HCl 500 mg Tablet take 2 tabs with breakfast and 1 tab with evening meal twice a day , Taking Atorvastatin Calcium 40 mg Tablet TAKE ONE TABLET BY MOUTH ONCE A DAY , Discontinued Enoxaparin Sodium 60 MG/0.6ML Solution Prefilled Syringe 60 mg Injection twice a day , Medication List reviewed and reconciled with the patient * Allergies: N .K.D.A. Objective: * Vitals: N urse: jl, Pain: 4, Temp: 94.3, RR: 18, HR: 80, BP: 116/70, Ht: 64.75, Wt: 140.4, BMI:23.54. * Examination: G eneral Examination: General P [...] extensive venous varicosities without evidence of complication. nodular deformity right knee lateral aspect. neck s upple,. Psych N ormal Mood/Affect. Assessment: * Assessment: 1. R ecurrent deep vein thrombosis (DVT) - I82.409 (Primary) 2 . H yperthyroidism - E05.90 3 . C hronic anticoagulation - Z79.01 4 . M urmur - R01.1 5 . T ype 2 diabetes mellitus without complication, without long-term current use of insulin - E11.9 6 . E ssential hypertension - I10 ?7. C omplicated varicose veins - I83.899 8 . P ain, joint, knee, right - M25.561 Plan: * Treatment: 2. H yperthyroidism L AB: M-Complete Blood Count Auto Diff L AB: M-Comprehensive Metabolic Panel L AB: M-Hemoglobin A1C L AB: M-Free T4 (Free Thyroxine) L AB: M-Thyroid Stimulating Hormone Notes: continue methimazole 3. C hronic anticoagulation L AB: M-Complete Blood Count Auto Diff L AB: M-Comprehensive Metabolic Panel L AB: M-Hemoglobin A1C L AB: M-Free T4 (Free Thyroxine) L AB: M-Thyroid Stimulating Hormone Clinical Notes: per [facility] Coumadin Clinic 4. M urmur Clinical Notes: echo stable in 2023 5. T ype 2 diabetes mellitus without complication, without long-term current use of insulin L AB: M-Complete Blood Count Auto Diff L AB: M-Comprehensive Metabolic Panel L AB: M-Hemoglobin A1C L AB: M-Free T4 (Free Thyroxine) L AB: M-Thyroid Stimulating Hormone Clinical Notes: Goal A1C < 7, will have labs drawn during her consult with Dr Garrido 6. E ssential hypertension Clinical Notes: mild HTN in the past, stable on diltiazem 7. P ain, joint, knee, right Clinical Notes: She has tolerated surgery and undergone cardiac clearance in the past 6 months. No additional testing recommended at this time. We will get recommendations regarding her Coumadin and bridge with Lovenox per the Coumadin clinic recommendations once a surgery date has been scheduled.? * Follow Up: 4 Months (Reason: DM) * * Sign off status: Completed true * Provider: REBEKAH Vides Date: Generated for Marichuy mcdowell/Logan/Cecilleitting on: 11:31 AM EDT History and Physical Notes * Examination Category Sub-Category Detail Notes Category Not es General Examination Heart: Regular Rate and Rhythm, 2/6 systolic murmur Lungs: clear to auscultatio n, Abdomen: soft, NT/ND, BS pres ent Extremities: no clubbing, no gene a, extensive venous varicosities without evidence of complication. nodular deformity right knee lateral aspect Skin: without acute rashes Neurologic Exam: Alert and oriented x 3 Oral cavity: Moist membranes Peripheral pulses: normal (2+) bilatera lly neck supple, General Pleasant and Coopera tive, NAD on RA, Psych Normal Mood/Affect Consultation Request Notes Referral Date Referring Provider Referred Provider Not es 04/05/2025 Javon Peter , [facility] Hematolo gy, Dr Garrido
--- OUTSIDE RECORDS SUMMARY | 2025-04-19 02:13 | XMS_ITS | Continuity of Care Document ---
Author Organization [facility] Phone Care Team Providers Care Body Work Auto Trimmer Name Role Phone JAVON RODRÍGUEZ Primary Care SOURAV PFEIFFER Primary Attending SOURAV PFEIFFER Admitting ALLERGIES AND ADVERSE REACTIONS ALLERGIES AND ADVERSE REACTIONS Code System Allergy Substance Adverse Reaction Date Reaction (Severity) Comment Status Reported By Updated By No Known Allergies [id number] on April 16, 2025 3:23:51 PM [facility] FAMILY HISTORY RELATION: Father Status: Cause of : Unknown Age at : Unknown SNOMED-CT Diagnosis Age At Onset [id number] Heart disease RELATION: Mother Status: Cause of : Malignant neoplasm of kidney Age at : Unknown SNOMED-CT Diagnosis Age At Onset Information not available RESULTS Patient: JOE HAMILTON I Date of : 1950 6 LABORATORY RESULTS ORDER 100: CBC AUTO W DIFF ( LOINC: 52575-8) ORDER DATE: April 16, 2025 3:18:00 PM UT Specimen Source: EDTA Specimen Type: Blood specime n with EDTA PERFORMING LAB: [address] [id number] Result Comment: Final Result Date: April 16, 2025 5:30:00 PM UT (TECH: ADB) LOINC TEST FLAG RESULT REFERENCE RANGE [place] BY 6690-2 Leukocytes [#/volume] in Blood by Automated count N 8.4 K/ul 4.0 K/ul - 10.5 K/ul April 16, 2025 5:30:00 PM UT (TECH: ADB) 789-8 Erythrocytes [#/volume] in Blood by Automated count N 5.2 M/mm3 4.2 M/mm3 - 6.4 M/mm3 April 16, 2025 5:30:00 PM UTC (TECH: ADB) 718-7 Hemoglobin [Mass/volume] in Blood N 15.0 gm/dl 12.5 gm/dl - 16.0 gm/dl April 16, 2025 5:30:00 PM UTC (TECH: ADB) 51288-4 Hematocrit [Volume Fraction] of Blood H 47.5 % 37.0 % - 47.0 % April 16, 2025 5:30:00 PM UTC (TECH: ADB) 787-2 Erythrocyte mean corpuscular volume [Entitic volume] by Automated count N 91.3 fl 78 fl - 100 fl April 16, 2025 5:30:00 PM UTC (TECH: ADB) 785-6 Erythrocyte mean corpuscular hemoglobin [Entitic mass] by Automated count N 28.8 pg 27 pg - 31 pg April 16, 2025 5:30:00 PM UTC (TECH: ADB) 786-4 Erythrocyte mean corpuscular hemoglobin concentration [Mass/volume] by Automated count L 31.6 g/dl 32 g/dl - 36 g/dl April 16, 2025 5:30:00 PM UTC (TECH: ADB) 61497-4 Erythrocyte distribution width [Ratio] N 12.2 % 11.5 % - 14.0 % April 16, 2025 5:30:00 PM UTC (TECH: ADB) 777-3 Platelets [#/volume] in Blood by Automated count N 233 K/ul 150 K/ul - 450 K/ul April 16, 2025 5:30:00 PM UTC (TECH: ADB) 55916-2 Platelet mean volume [Entitic volume] in Blood by Automated count H 10.5 fl 6 fl - 9.5 fl April 16, 2025 5:30:00 PM UTC (TECH: ADB) 83438-7 Neutrophils/100 leukocytes in Blood H 71.8 % 43 % - 65 % April 16, 2025 5:30:00 PM UTC (TECH: ADB) 736-9 Lymphocytes/100 leukocytes in Blood by Automated count L 18.2 % 20.5 % - 45.5 % April 16, 2025 5:30:00 PM UTC (TECH: ADB) 5905-5 Monocytes/100 leukocytes in Blood by Automated count N 7.8 % 5.5 % - 11.7 % April 16, 2025 5:30:00 PM UTC (TECH: ADB) 713-8 Eosinophils/100 leukocytes in Blood by Automated count N 1.1 % 0.9 % - 2.9 % April 16, 2025 5:30:00 PM UTC (TECH: ADB) 706-2 Basophils/100 leukocytes in Blood by Automated count N 0.5 % 0.2 % - 1.0 % April 16, 2025 5:30:00 PM UTC (TECH: ADB) 19876-4 Immature granulocytes/100 leukocytes in Blood by Automated count N 0.6 % 0.0 % - 0.8 % April 16, 2025 5:30:00 PM UTC (TECH: ADB) 20322-0 Nucleated cells [#/volume] in Blood N 0.0 % April 16, 2025 5:30:00 PM UTC (TECH: ADB) 65748-4 Neutrophils [#/volume] in Blood H 6.0 K/uL 2.2 K/uL - 4.8 K/uL April 16, 2025 5:30:00 PM UTC (TECH: ADB) 731-0 Lymphocytes [#/volume] in Blood by Automated count N 1.5 CELL/MCL 1.3 CELL/MCL - 2.9 CELL/MCL April 16, 2025 5:30:00 PM UTC (TECH: ADB) 742-7 Monocytes [#/volume] in Blood by Automated count N 0.7 CELL/MCL 0.3 CELL/MCL - 0.8 CELL/MCL April 16, 2025 5:30:00 PM UTC (TECH: ADB) 711-2 Eosinophils [#/volume] in Blood by Automated count N 0.1 CELL/MCL 0 CELL/MCL - 0.2 CELL/MCL April 16, 2025 5:30:00 PM UTC (TECH: ADB) 704-7 Basophils [#/volume] in Blood by Automated count N 0.0 CELL/MCL 0.0 CELL/MCL - 1.0 CELL/MCL April 16, 2025 5:30:00 PM UTC (TECH: ADB) 67870-4 Immature granulocytes [#/volume] in Blood N 0.05 K/ul April 16, 2025 5:30:00 PM UTC (TECH: ADB) 13053-7 Nucleated cells [#/volume] in Blood N 0.00 K/uL April 16, 2025 5:30:00 PM UT (TECH: ADB) 41502-5 Manual Differential panel - Blood N NO April 16, 2025 5:30:00 PM UTC (TECH: ADB) ORDER 400: PT PROTHROMBIN TI ME W INR (LOINC: 18039-4) ORDER DATE: April 16, 2025 3:35:00 PM UTC Specimen Source: PLASMA Specimen Type: Plasma specim en PERFORMING LAB: [address] [id number] Result Comment: Final Result Date: April 16, 2025 6:45:00 PM UT (TECH: ADB) LOINC TEST FLAG [place] [address]-8 INR in Platelet poor plasma or blood by Coagulation assay H 12.4 SECONDS 9.3 SECONDS - 11.4 SECONDS April 16, 2025 6:45:00 PM UTC (TECH: ADB) 6301-6 INR in Platelet poor plasma by Coagulation assay H 1.2 Ratio 0.97 Ratio - 1.05 Ratio April 16, 2025 6:45:00 PM UT (TECH: ADB) LABORATORY NARRATIVE RESULTS Information is not available RADIOLOGY RESULTS ORDER 500: CHEST 2 VIEWS (LO INC: 57530-1) ORDER DATE: April 16, 2025 3:42:00 PM UTC PERFORMING LAB: [address] [id number] Final Result Date: April 042024 4:10:04 PM UTC [address] [address] Name: ALFONSO DIAZ Exam Date: 04/16/2025 : 1950 Age 74 years Gender: F Physician: SOURAV PFEIFFER Facility: [facility] Facility HSV: Outpatient Exam: CHEST 2 VIEWS EXAM: XR CHEST 2 VIEWS INDICATION: preop COMPARISON: None available. FINDINGS: Normal cardiomediastinal silhouette. No acute airspace disease, pneumothorax, or pleural effusion. No acute osseous abnormality. IMPRESSION: * No acute cardiopulmonary findings. Electronically signed by: Guevara Amanda MD 04/16/2025 12:10 PM EDT RP Dictated By: GUEVARA AMANDA Transcribed By: Transcribed On: 04/16/2025 12:10 PM Electronically signed by: GUEVARA AMANDA 04/16/2025 Thank you for referring ALFONSO DIAZ to [facility]. Legally authenticated by BOBBI SANTOS 2025-04-16 12:10:04 PATHOLOGY NARRATIVE RESULTS Information is not available [...] Effective Dates Offered Cessation Comment Updated By [id number] Historical Tobacco smoking status Former Smoker [id number] on April 16, 2025 3:28:46 PM [facility] SOCIAL HISTORY - Gender Sex: Female SOCIAL HISTORY - Status : status i nformation is not available Intention in Next Year: intention information is not available SOCIAL HISTORY - Assessments Code System Description Status Date Value of Assessment Updated By Comment Assessment Information is no t available SOCIAL HISTORY - [place] Affiliation [place] information is not av ailable SOCIAL HISTORY [...] available. ENCOUNTERS ENCOUNTER INFORMATION Reason for Visit PRE OP Admission April 16, 2025 2:50:00 PM [place] [id number] [facility] [id number] Discharge April 16, 2025 2:50:00 PM [facility] DISCHARGED TO HOME OR SELF CARE ENCOUNTER DIAGNOSES Notes information is not shahana ilable. Code System Diagnosis Onset Date Diagnosis information is not available. ABSTRACT DIAGNOSES Code System Diagnosis Updated By Abatement Date M17.11 ICD10 UNILATERAL PRIMA RY OSTEOARTHRITIS, RIGHT KNEE [id number] on April 19, 2025 6:12:49 AM [facility] M17.11 ICD10 UNILATERAL PRIMA RY OSTEOARTHRITIS, RIGHT KNEE [id number] on April 19, 2025 6:12:49 AM [facility] CARE TEAM Care Body Work Auto Trimmer Role JAVON RODRÍGUEZ Primary Care SOURAV PFEIFFER Primary Attending SOURAV PFEIFFER Admitting CARE TEAM CARE production generalist Role on Team Location Telecom Status Start Date End [place] e Updated By MARCOS ALEJANDRO PCP normal April 16, 2025 4:00:00 AM [facility] April 16, 2025 2:50:00 PM [facility] [id number] on April 16, 2025 2:51:27 PM [facility] KENTRELL BRAMBILA Attending normal April 16, 2025 4:00:00 AM [facility] April 16, 2025 2:50:00 PM [facility] [id number] on April 16, 2025 2:51:27 PM [facility] KENTRELL BRAMBILA Admitting normal April 16, 2025 4:00:00 AM [facility] April 16, 2025 2:50:00 PM [facility] [id number] on April 16, 2025 2:51:27 PM [facility]
--- OUTSIDE RECORDS SUMMARY | 2025-04-24 09:05 | XMS_ITS | Continuity of Care Document ---
Author Organization [facility] Phone Care Team Providers Care Material Controller Name Role Phone SOURAV PFEIFFER Surgeon SOURAV PFEIFFER Admitting JAVON RODRÍGUEZ Primary Care SOURAV PFEIFFER Primary Attending ALLERGIES AND ADVERSE REACTIONS ALLERGIES AND ADVERSE REACTIONS Code System Allergy Substance Adverse Reaction Date Reaction (Severity) Comment Status Reported By Updated By No Known Allergies [id number] on April 19, 2025 1:03:56 PM UTC ASSESSMENTS Ganglion of joint ; FAMILY HISTORY RELATION: Father Status: Cause of : Unknown Age at : Unknown SNOMED-CT Diagnosis Age At Onset [id number] Heart disease RELATION: Mother Status: Cause of : Malignant neoplasm of kidney Age at : Unknown SNOMED-CT Diagnosis Age At Onset Information not available PROBLEMS PATIENT PROBLEMS Code Description/Comments Category Status [place] By [id number] Ganglion of joint active [id number] on April 19, 2025 4:12:26 PM UTC RESULTS Patient: JOE HAMILTON I Date of : 1950 6 LABORATORY RESULTS ORDER 600: GLUCOSE BEDSIDE T ESTING (LOINC: 10498-3) ORDER DATE: April 19, 2025 1:25:00 PM UTC Specimen Source: WHOLE BLOOD Specimen Type: Whole blood s ample PERFORMING LAB: [address] [id number] Result Comment: April 19, 2025 2:24:00 PM UTC Test performed by: [id number] ; Instrument: [id number] Final Result Date: April 19, 2025 2:24:00 PM UT LOINC TEST [place] [address]-4 Glucose [Mass/volume] in Capillary blood by Glucometer H 114 mg/dl 70 mg/dl - 105 mg/dl April 19, 2025 2:24:00 PM [facility] ORDER 900: GLUCOSE BEDSIDE T ESTING (LOINC: 09183-1) ORDER DATE: April 19, 2025 4:32:00 PM UT Specimen Source: WHOLE BLOOD Specimen Type: Whole blood s ample PERFORMING LAB: [address] [id number] Result Comment: April 19, 2025 4:34:00 PM UT Test performed by: [id number] ; Instrument: [id number] Final Result Date: April 19, 2025 4:34:00 PM [facility] LOINC TEST FLAG [place] [address]9 Glucose [Mass/volume ] in Capillary blood by Glucometer H 115 mg/dl 70 mg/dl - 105 mg/dl April 19, 2025 4:34:00 PM [facility] LABORATORY NARRATIVE RESULTS Information is not available RADIOLOGY RESULTS Information is not available PATHOLOGY NARRATIVE RESULTS Information is not available MICROBIOLOGY RESULTS No Micro Labs/Results Exist for Patient BLOOD ADMIN RESULTS Information is not available TREATMENT PLAN DISCHARGE MEDICATIONS Status RXNORM Medication Dose Route Frequency Dates Comments U pdated By Continued [id number] Atorvastatin Calcium Oral Tablet 40 MG 40 MG ORAL ONCE DAILY Prescribe d: April 19, 2025 4:14:16 PM [facility] [id number] on April 19, 2025 4:14:16 PM [facility] Continued 447101 Famotidine Oral Tablet 40 MG 40 MG ORAL ONCE DAILY Prescribe d: April 19, 2025 4:14:16 PM [facility] [id number] on April 19, 2025 4:14:16 PM UT Continued 783954 Warfarin Sodium Oral Tablet 2.5 MG 2.5 MG ORAL ONCE DAILY Prescribe d: April 19, 2025 4:14:16 PM UT [id number] on April 19, 2025 4:14:16 PM UT Continued 639569 dilTIAZem HCl ER Beads Oral Capsule Extended Release 24 Hour 180 MG 180 MG ORAL ONCE DAILY Prescribe d: April 19, 2025 4:14:16 PM UT [id number] on April 19, 2025 4:14:16 PM [facility] Continued [id number] Percocet Oral Tablet 5-325 MG 1 TAB ORAL EVERY FOUR HOURS NEEDED Prescribe d: April 19, 2025 4:14:16 PM [facility] [id number] on April 19, 2025 4:14:16 PM [facility] Continued 921039 metFORMIN HCl Oral Tablet 500 MG 500 MG ORAL THREE TIMES A DAY Prescribe d: April 19, 2025 4:14:16 PM [facility] [id number] on April 19, 2025 4:14:16 PM [facility] Continued 061064 methIMAzole Oral Tablet 10 MG 10 MG ORAL ONCE DAILY Prescribe d: April 19, 2025 4:14:16 PM [facility] [id number] on April 19, 2025 4:14:16 PM [facility] PATIENT OPEN ORDERS Code System Descripti on Frequency Occurrenc es Priority Category [place] [address] [facility] Pathology report addendum in Specimen Narrative ONE TIME 0 Routine April 19, 2025 7:20:00 PM [facility] KENTRELL HERRINGGE [id number] on April 19, 2025 7:21:00 PM [facility] SCHEDULED PROCEDURES Code System Description Status Scheduled Date Upd ated By Patient scheduled procedure information is not available. MEDICATIONS HOME MEDICATIONS Status RXNORM [facility] Medication Dose Route Frequency Dates Comments Reported By Updated By Active [id number] 82883 53622 1 metFORMIN HCl Oral Tablet 500 MG 500.0 MG ORAL TID Last Dose: [facility] 2024 12:00: 00 PM [facility] [id number] on April 19, 2025 1:05:55 PM [facility] Active 637070 89499 05500 0 Famotidine Oral Tablet 40 MG 40.0 MG ORAL DAILY Last Dose: [facility] 2024 1:00:0 0 AM [facility] [id number] on April 19, 2025 1:05:46 PM [facility] Active 994700 14283 67951 0 Atorvastatin Calcium Oral Tablet 40 MG 40.0 MG ORAL DAILY Last Dose: [facility] r 2024 1:00:0 0 AM [facility] [id number] on April 19, 2025 1:04:52 PM [facility] Active 172787 31289 36848 1 Warfarin Sodium Oral Tablet 2.5 MG 2.5 MG ORAL DAILY Last Dose: [facility] r 2024 12:00: 00 PM [facility] [id number] on April 19, 2025 1:06:28 PM [facility] Active 683737 67323 85105 3 dilTIAZem HCl ER Beads Oral Capsule Extended Release 24 Hour 180 MG 180.0 MG ORAL DAILY Last Dose: [facility] r 2024 12:00: 00 PM [facility] [id number] on April 19, 2025 1:05:33 PM [facility] Active 884150 81176 09355 1 methIMAzole Oral Tablet 10 MG 10.0 MG ORAL DAILY Last Dose: [facility] r 2024 12:00: 00 PM [facility] [id number] on April 19, 2025 1:06:15 PM [facility] Active 650441 59424 68675 0 Lovenox Injection Solution Prefilled Syringe 30 MG/0.3ML 0.0 SUBCUTA NEOUS BID Last Dose: [facility] 2024 12:00: 00 PM [facility] unsure of dose. Used as a bridge for surgery. [id number] on April 19, 2025 1:15:38 PM [facility] DISCHARGE MEDICATIONS Status RXNORM [facility] Medication Dose Route Frequency Dates Dis pense Data Comments Physician Updated By [facility] ed [id number] [phone] Atorvastati n Calcium Oral Tablet 40 MG 40.0 MG ORAL ONCE DAILY Prescr ibed: [facility] 2024 4:14:1 6 PM [facility] SOURAV [facility] [id number] on April 19, 2025 4:14:16 PM [facility] ed [id number] 1796 2572 960 Famotidine Oral Tablet 40 MG 40.0 MG ORAL ONCE DAILY Prescr ibed: [facility] 2024 4:14:1 6 PM [facility] SOURAV Y [id number] on April 19, 2025 4:14:16 PM [facility] Continu ed 490823 7363 2455 816 Warfarin Sodium Oral Tablet 2.5 MG 2.5 MG ORAL ONCE DAILY Prescr ibed: [facility] 2024 4:14:1 6 PM [facility] SOURAV Y [id number] on April 19, 2025 4:14:16 PM [facility] ed 918905 6208 5067 013 dilTIAZem HCl ER Beads Oral Capsule Extended Release 24 Hour 180 MG 180.0 MG ORAL ONCE DAILY Prescr ibed: [facility] 2024 4:14:1 6 PM [facility] SOURAV Y [id number] on April 19, 2025 4:14:16 PM [facility] Continu ed [id number] 1230 1062 370 Percocet Oral Tablet 5-325 MG 1.0 TAB ORAL EVERY FOUR HOURS NEEDED [facility] 4:14:1 6 PM [place] KENTRELL SOURAV Y [id number] on April 19, 2025 4:14:16 PM [facility] Continu ed [id number] 4262 9944 801 metFORMIN HCl Oral Tablet 500 MG 500.0 MG ORAL THREE TIMES A DAY [facility] 20[facility] 4:14:1 6 PM UT KENTRELL SOURAV CALHOUNY [id number] on April 19, 2025 4:14:16 PM [facility] Continu ed 000218 7064 5007 101 methIMAzole Oral Tablet 10 MG 10.0 MG ORAL ONCE DAILY [facility] 20[facility] 4:14:1 6 PM [facility] [place] [facility] Andrae [id number] on April 19, 2025 4:14:16 PM [facility] INPATIENT MEDICATIONS Status RXNORM [facility] Medication Dose Route Frequency Rat e Quantity Dates Indication Dispense Data Comments Physician Updated By Kamila inued 5602 8014 164 NOZIN NASAL DIPPER OPERATOR POPSWAB SWAB 1.0 EA NASAL ONE TIME ADMINISTRA TION (UNSCHEDUL ED) Start: 2024 10:00: 00 AM UTC End: 2024 1:24:5 8 PM [place] AZAEL MUSTAPHA [id number] on April 19, 2025 1:24:00 PM UT Discont inued 3432337 6630 7084 001 ceFAZolin (ANCEF) 2 GM SOLR 2.0 GM INTRAV ENOUS ONE TIME ADMINISTRA TION (UNSCHEDUL ED) [facility]: [facility] 10:00: 00 AM UTC [facility]: [facility] 20[facility] 1:24:5 9 PM UT AZAEL MUSTAPHA [id number] on April 19, 2025 1:24:00 PM UT Discont inued 9166662 6152 8480 630 meperidine (DEMEROL) 25 MG/ML SOLN 12.5 MG INTRAV ENOUS NEEDED (PACU) Start: 2024 4:59:0 0 PM UTC End: [facility] r 2024 4:14:1 6 PM UTC DONNIE BANG [id number] on April 20, 2025 4:25:00 AM UTC Discont inued 5519052 0040 9117 630 meperidine (DEMEROL) 25 MG/ML SOLN 25.0 MG INTRAV ENOUS NEEDED (PACU) Start: [facility] 2024 4:59:0 0 PM UTC End: Octobe r 2024 4:14:1 6 PM UTC DONNIE BANG [id number] on April 20, 2025 4:25:00 AM UTC Discont inued 4379 3080 811 fentaNYL (SUBLIMAZE) 50 MCG/ML SOSY 25.0 MCG INTRAV ENOUS EVERY 5 MINUTES NEEDED (PACU) [facility] PM [facility] 4:14[facility]1 6 PM UTC DONNIE BANG [id number] on April 20, 2025 4:25:00 AM UTC Discont inued 6640 3080 811 fentaNYL (SUBLIMAZE) 50 MCG/ML SOSY 50.0 MCG INTRAV ENOUS EVERY 5 MINUTES NEEDED (PACU) [facility] 4:59[facility]0 0 PM UTC [facility] 4:14:1 6 PM UTC DONNIE BANG [id number] on April 20, 2025 4:25:00 AM UTC Discont inued 7626722 2697 9426 401 HYDROmorpho ne (DILAUDID) 0.5 MG/0.5ML SOLN 0.5 MG INTRAV ENOUS EVERY 10 MINUTES NEEDED (PACU) [facility] 4:59:0 0 PM UTC End: Oct[facility] r 2024 4:14:1 6 PM UTC DONNIE BANG [id number] on April 20, 2025 4:25:00 AM UTC Discont inued 0942498 0233 9128 331 HYDROmorpho ne (DILAUDID) 1 MG/ML SOLN 1.0 MG INTRAV ENOUS EVERY 10 MINUTES NEEDED (PACU) Start: Oct[facility] r 2024 4:59:0 0 PM UTC End: Octobe r 2024 4:14:1 6 PM UTC DONNIE BANG [id number] on April 20, 2025 4:25:00 AM UTC Discont inued 7908864 0667 5613 000 ondansetron (ZOFRAN) INJ 4 MG/2 ML SOLN 4.0 MG INTRAV ENOUS NEEDED (PACU) [facility] 4:59:0 0 PM UTC [facility] 4:14:1 6 PM UTC DONNIE BANG [id number] on April 20, 2025 4:25:00 AM UTC Discont inued 0231832 0051 7970 201 droperidol (INAPSINE) 2.5 MG/ML SOLN 0.625 MG INTRAV ENOUS NEEDED (PACU) [facility] 4:59:0 0 PM UTC End: [facility] r 2024 4:14:1 6 PM UTC DONNIE ROBLESONY [id number] on April 20, 2025 4:25:00 AM UTC Discont inued 8885620 6908 3041 112 midazolam (VERSED) 2 MG/2 ML SOLN 1.0 MG INTRAV ENOUS EVERY FIVE MINUTES NEEDED [facility] 4:59:0 0 PM UTC End: [facility] r 2024 4:14:1 6 PM UTC DONNIE ROBLESONY [id number] on April 20, 2025 4:25:00 AM UTC Discont inued 1374111 4296 3041 112 midazolam (VERSED) 2 MG/2 ML SOLN 2.0 MG INTRAV ENOUS NEEDED (PACU) [facility] 4:59:0 0 PM UTC [facility] 4:14:1 6 PM UTC DONNIE ROBLESONY [id number] on April 20, 2025 4:25:00 AM UTC Discont inued 808769 1720 1092 825 promethazin e (PHENERGAN) 25 MG/ML SOLN 12.5 MG INTRAV ENOUS NEEDED (PACU) [facility] 4:59:0 0 PM UTC [facility] 4:14:1 6 PM UTC DONNIE BANG [id number] on April 20, 2025 4:25:00 AM UTC Discont inued XXXX XXX0 011 promethazin e (PHENERGAN) 12.5 MG GEL 12.5 MG TOPICA L NEEDED (PACU) Start: [facility] r 2024 4:59:0 0 PM UTC End: [facility] r 2024 4:14:1 6 PM UTC DONNIE BANG [id number] on April 20, 2025 4:25:00 AM UTC Discont inued 182960 3291 8011 704 LACTATED RINGERS SOLN 1000. 0 ML INTRAV ENOUS ONE TIME ADMINISTRA TION (UNSCHEDUL ED) 25.0 ML/HR Start: [facility] r 2024 4:59:0 0 PM UTC End: [facility] r 2024 1:24:5 9 PM UTC DONNIE BANG [id number] on April 19, 2025 1:24:00 PM UTC Discont inued 369553 1062 8011 704 LACTATED RINGERS SOLN 1000. 0 ML INTRAV ENOUS ONE TIME ONLY (PACU) 25.0 ML/HR Start: [facility] r 2024 4:59:0 0 PM UTC End: [facility] r 2024 4:14:1 6 PM UTC DONNIE BANG [id number] on April 20, 2025 4:25:00 AM UTC Discont inued 3415567 3132 5623 105 ceFAZolin (ANCEF) 2 GM SOLR 2.0 GM INTRAV ENOUS ONE TIME ONLY (SCHEDULED DOSE) Start: [facility] r 2024 1:19:0 0 PM UTC End: [facility] r 2024 1:19:0 0 PM UTC KENTRELL SOURAV INTERFAC ED on April 19, 2025 1:17:00 PM UTC Discont inued 2895842 3325 9909 332 PACU - fentaNYL (SUBLIMAZE) 100 MCG/2ML SOLN 100.0 MCG INTRAV ENOUS ONE TIME ONLY (SCHEDULED DOSE) Start: [facility] r 2024 2:17:0 0 PM UTC End: [facility] r 2024 2:17:0 0 PM UTC KENTRELL SOURAV INTERFAC ED on April 19, 2025 2:15:00 PM UTC Discont inued 1359163 1698 3067 120 dexmedetomi dine (PRECEDEX) 80 MCG/20ML SOLN 80.0 MCG INTRAV ENOUS ONE TIME ONLY (SCHEDULED DOSE) Start: [facility] 2024 2:17:0 0 PM UTC End: [facility] 2024 2:17:0 0 PM UTC KENTRELL SOURAV INTERF ED on April 19, 2025 2:15:00 PM UTC Discont inued 0081577 8097 9020 901 PROPOFOL 200 MG/20ML EMUL 200.0 MG INTRAV ENOUS ONE TIME ONLY (SCHEDULED DOSE) 8.333 MG/HR Start: [facility] 2024 4:55:0 0 PM UTC End: [facility] 2024 4:56:1 9 PM UTC KENTRELL SOURAV [id number] on April 19, 2025 4:56:00 PM UTC Discont inued 8953384 9811 3016 505 DEXAMETHASO NE SODIUM PHOSPHATE 20.0 MG INTRAV ENOUS ONE TIME ONLY (SCHEDULED DOSE) 0.833 MG/HR Start: [facility] 2024 4:55:0 0 PM UTC End: [facility] 2024 4:56:1 9 PM UTC KENTRELL SOURAV [id number] on April 19, 2025 4:56:00 PM UTC Discont inued [id number] 2378 5613 000 ONDANSETRON HCL 4 MG/2ML SOLN 4.0 MG INTRAV ENOUS ONE TIME ONLY (SCHEDULED DOSE) 0.167 MG/HR Start: [facility] 2024 4:55:0 0 PM UTC End: [facility] 2024 4:56:1 9 PM UTC KENTRELL SOURAV [id number] on April 19, 2025 4:56:00 PM UTC Discont inued [id number] 2766 0437 525 GLYCOPYRROL ATE 1 MG/5ML SOLN 1.0 MG INTRAV ENOUS ONE TIME ONLY (SCHEDULED DOSE) 0.042 MG/HR Start: [facility] 2024 4:55:0 0 PM UTC End: [facility] 2024 4:56:1 9 PM UTC KENTRELL SOURAV [id number] on April 19, 2025 4:56:00 PM UTC Discont inued 1338654 9831 3020 202 LIDOCAINE HCL 2 % SOLN 4.0 ML ONE TIME ONLY (SCHEDULED DOSE) 0.167 ML/HR Start: [facility] 2024 4:56:0 0 PM UTC End: [facility] r 2024 4:56:2 0 PM UTC KENTRELL SOURAV [id number] on April 19, 2025 4:56:00 PM UTC Discont inued 727318 0063 8011 704 LACTATED RINGERS SOLN 1000. 0 ML IV CONTIN UOUS ONE TIME ONLY (SCHEDULED DOSE) Start: [facility] 2024 10:27: 00 AM UTC End: [facility] 2024 10:27: 00 AM UTC KENTRELL SOURAV INTERFAC ED on April 19, 2025 4:00:00 AM UT SOCIAL HISTORY SOCIAL HISTORY - Smoking Status SNOMED-CT Social History Element Description Effective Dates Offered Cessation Comment Updated By [id number] Current Tobacco smoking status Former Smoker Quit 1972 [id number] on April 19, 2025 1:07:45 PM UT SOCIAL HISTORY - Gender Sex: Female SOCIAL HISTORY - Status : status i nformation is not available Intention in Next Year: intention information is not available SOCIAL HISTORY - Assessments Code System Description Status Date Value of Assessment Updated By Comment Assessment Information is no t available SOCIAL HISTORY - [place] Affiliation [place] information is not av ailable SOCIAL HISTORY - Legal Sex Legal Sex information is not available SOCIAL HISTORY - Sexual Behavior Sexual Orientation Gender Identity SNOMED-CT Description SNO MED -CT Description Activity Level No of Partners Partner Type UpdatedBy Information is not available SOCIAL HISTORY - Occupation Occupation information is no t available VITAL SIGNS PATIENT VITAL SIGNS This section displays the mo st recent value for each vital sign as of April 24, 2025 1:05:52 PM UT Loinc Code Vital Sign Activity Date Result Updated By 8302-2 Body height April 19, 2025 1:07:57 PM UT 170.18 cm (67.0 in) [id number] on April 19, 2025 1:07:[place] [address]-6 Body mass index (BMI ) [Ratio] April 19, 2025 1:07:57 PM UT 21.753 kg/m2 3140-1 Body Surface Area Derived From Formula April 19, 2025 1:07:57 PM UTC 1.7318 m2 8310-5 Body temperature April 16 5:25:00 PM UTC 98.5 [degF] 57947-9 Body weight Measured April 19, 2025 1:07:57 PM UTC 63.0 kg (139.0 lb) [id number] on April 19, 2025 1:07:57 PM UTC 8462-4 Diastolic blood pressure April 16, 2025 5:25:00 PM UTC 87.0 mm[Hg] 8867-4 Heart rate April 16, 2025 5:25:00 PM UTC 70 /min 15072-0 Oxygen saturation in Arterial blood by Pulse oximetry April 16, 2025 5:25:00 PM UTC 99.0 % 9279-1 Respiratory rate April 16 5:25:00 PM UTC 18 /min 8480-6 Systolic blood pressure April 16, 2025 5:25:00 PM UTC 139.0 mm[Hg] PEDIATRIC GROWTH CHART - VITAL SIGNS This section displays Head C ircumference Percentile, Weight for Length Percentile and BMI Percentile Loinc Code Pediatric Measure Age (Months) Result Updat ed By No Pediatric Growth Chart Pe rcentile Information Available. PROCEDURES PATIENT PROCEDURES Procedure information is not available. PROCEDURE NOTE Note Title Ortho Operative Repo rt Date Of Service April 22, 2025 11: 06:03 PM UTC Created By [id number] on April 042024 11:06:03 PM UTC Signed By [id number] on April 042024 11:06:38 PM UTC OPERATIVE REPORT Patient Name: Kim Diaz Date of : 74F Sex: Female Date of Surgery: April 19, 2025 Surgeon:Sourav Pfeiffer Anesthesia: General anesthesia Preoperative Diagnosis: Symptomatic parameniscal cyst of the right knee. Osteoarthritis of the right knee Postoperative Diagnosis: Complex ganglion cyst (parameniscal) of the right knee, emanating from the lateral joint space. Osteoarthritis of the right knee (unchanged). Procedure Performed: Excision of right knee parameniscal cyst with capsular repair. Indications for Surgery: The patient is a 74-year-old female with a history of right knee osteoarthritis and a large parameniscal cyst that has failed conservative management, including activity modification, anti-inflammatory medications, and physical therapy. The patient reports no significant knee pain but endorses persistent discomfort from the cyst located on the lateral aspect of the knee, which interferes with her activities of daily living. Additionally, the cyst is cosmetically unsightly and bothersome to the patient. Preoperative MRI confirmed a complex ganglion cyst arising from the lateral aspect of the knee joint. After discussion of risks, benefits, and alternativesincluding continued observation, aspirationthe patient elected to proceed with surgical excision. Informed consent was obtained, and all questions were answered. Description of Procedure: The patient was brought to the operating room and placed in the supine position on the operating table. After induction of general anesthesia and confirmation of adequate airway management, the right lower extremity was prepped and draped in the usual sterile fashion. A well-padded tourniquet was applied to the right thigh and inflated to 300 mmHg following exsanguination of the limb with an Esmarch bandage. A small bump was placed under the ipsilateral hip to facilitate neutral alignment of the limb and access to the lateral knee. A longitudinal incision measuring approximately 4 cm was made over the lateral aspect of the right knee, centered directly over the palpable parameniscal cyst. Sharp dissection was carried down through the skin and subcutaneous tissues using electrocautery for hemostasis as needed. The cyst was identified as a well-circumscribed, fluctuant mass beneath the subcutaneous layer. Careful blunt and sharp dissection was performed to mobilize the cyst from the surrounding subcutaneous tissues, taking care to preserve adjacent neurovascular structures, including branches of the lateral sural cutaneous nerve. Once isolated, the cyst capsule was incised, revealing congealed, yellowish, gelatinous material consistent with ganglion cyst contents. This material was evacuated and collected as a specimen, which was sent to pathology for routine analysis. The cyst capsule was then excised in its entirety using Metzenbaum scissors and electrocautery, ensuring complete removal to minimize the risk of recurrence. Intraoperative inspection revealed that the cyst appeared to emanate directly from the lateral joint space, with a communication to the knee joint capsule. No intra-articular pathology was visualized through this defect, and the joint space was not formally entered beyond the capsular level. Following complete excision, the defect in the lateral joint capsule was reapproximated and closed using interrupted 2-0 Vicryl sutures to seal the communication and restore capsular integrity. Hemostasis was confirmed throughout the procedure, with no significant bleeding noted. The subcutaneous tissues were closed in layers using 3-0 Vicryl sutures, and the skin was approximated with 4-0 Monocryl subcuticular sutures followed by Steri-Strips. A sterile dressing was applied, consisting of Xeroform, gauze, and a light compressive wrap. The tourniquet was deflated after a total inflation time of 45 minutes, with prompt return of perfusion to the distal extremity. Estimated blood loss was minimal (less than 10 mL). There were no intraoperative complications. Sponge, needle, and instrument counts were correct at the conclusion of the case. Specimens: Ganglion cyst contents and capsulesent to pathology for histologic examination. Condition at End of Procedure: The patient tolerated the procedure well and was transferred to the post- anesthesia care unit in stable condition. Postoperative Plan: Weight-bearing as tolerated on the right lower extremity. Pain management with oral analgesics as needed. Follow-up in clinic in 10-14 days for wound check and suture removal. Pathology results to be reviewed at follow-up. Electronically signed by KENTRELL BRAMBILA on [address] [facility] Problems Concern Status Health Concern problem infor mation not available. Smoking Status Status Years Used Consumed packs p er day Health Concern smoking histo ry information not available. Family History Concern Status Health Concern family histor y information not available. ENCOUNTERS ENCOUNTER INFORMATION Reason for Visit R KNEE GANGLION CYST PARAMENISCAL CYST EXCISION Admission April 19, 2025 12:31:[address] [address] Discharge April 19, 2025 8:31:00 PM [facility] DISCHARGED TO HOME OR SELF CARE ENCOUNTER DIAGNOSES Notes information is not shahana ilable. Code System Diagnosis Onset Date Diagnosis information is not available. ABSTRACT DIAGNOSES Code System Diagnosis Updated By Abatement Date M17.11 ICD10 UNILATERAL PRIMA RY OSTEOARTHRITIS, RIGHT KNEE [id number] on April 24, 2025 1:05:11 PM [facility] M25.861 ICD10 OTHER SPECIFIED JOINT DISORDERS, RIGHT KNEE [id number] on April 24, 2025 1:05:11 PM [facility] M17.11 ICD10 UNILATERAL PRIMA RY OSTEOARTHRITIS, RIGHT KNEE [id number] on April 24, 2025 1:05:11 PM [facility] M25.861 ICD10 OTHER SPECIFIED JOINT DISORDERS, RIGHT KNEE [id number] on April 24, 2025 1:05:11 PM [facility] I10 ICD10 ESSENTIAL (PRIMA RY) HYPERTENSION [id number] on April 24, 2025 1:05:11 PM [facility] E78.5 ICD10 HYPERLIPIDEMIA, UNSPECIFIED [id number] on April 24, 2025 1:05:11 PM [facility] Z87.891 ICD10 PERSONAL HISTORY OF NICOTINE DEPENDENCE [id number] on April 24, 2025 1:05:11 PM [facility] K21.9 ICD10 GASTRO-ESOPHAGEA L REFLUX DISEASE WITHOUT ESOPHAGITIS [id number] on April 24, 2025 1:05:11 PM [facility] E11.9 ICD10 TYPE 2 DIABETES MELLITUS WITHOUT COMPLICATIONS [id number] on April 24, 2025 1:05:11 PM [facility] Z79.84 ICD10 GROUP HOME (CURRE NT) USE OF ORAL HYPOGLYCEMIC DRUGS [id number] on April 24, 2025 1:05:11 PM [facility] Z90.710 ICD10 ACQUIRED ABSENCE OF BOTH CERVIX AND UTERUS [id number] on April 24, 2025 1:05:11 PM [facility] Z79.01 ICD10 CELL PLASTERER (CURRE NT) USE OF ANTICOAGULANTS [id number] on April 24, 2025 1:05:11 PM [facility] Z79.899 ICD10 OTHER GROUP HOME (CURRENT) DRUG THERAPY [id number] on April 24, 2025 1:05:11 PM [facility] CARE TEAM Care Material Controller Role SOURAV PFEIFFER Surgeon SOURAV PFEIFFER Admitting [facility] SOURAV PFEIFFER Primary Attending HOSPITAL DISCHARGE INSTRUCTION DISCHARGE INSTRUCTION Encounter [id number] Admit Date April 19, 2025 12: 31:00 PM [facility] Discharge Date April 19, 2025 8:3 1:00 PM [facility] PATIENT EDUCATION SUMMARY Patient/Visit Information: Patient Name: KIM DIAZ Diag: Attending Caregiver: KENTRELL BENJAMIN Discharge Instruction Sheets Provided: Anesthesia, [facility] DC Instructions After BEFAST-Stroke Warning Signs Discharge Information Fall Prevention in Hospitals and in the Home [facility] - Medication Management KYNECT- HELP Medication Side Effects Suicide - Managing your Feelings Patient Instructions: Followup Appointments/Instructions: CARE TEAM CARE sleeve ironer Role on Team Location Telecom Status Start Date End [place] e Updated By KENTRELL BRAMBILA Surgeon normal April 19, 2025 12:31:00 PM [facility] April 19, 2025 8:31:00 PM [facility] [id number] on April 24, 2025 1:05:16 PM UTC MARCOS ALEJANDRO PCP normal April 16, 2025 2:36:16 PM UTC April 19, 2025 8:31:00 PM UTC [id number] on April 24, 2025 1:05:16 PM UTC NO DEFINED PRIMARY C PCP normal April 10, 2025 6:37:29 PM UTC April 16, 2025 2:36:16 PM UTC [id number] on April 24, 2025 1:05:16 PM UTC KENTRELL BRAMBILA Attending normal April 10, 2025 6:37:29 PM UTC April 19, 2025 8:31:00 PM UTC [id number] on April 24, 2025 1:05:16 PM UTC KENTRELL BRAMBILA Admitting normal April 10, 2025 6:37:29 PM UTC April 19, 2025 8:31:00 PM UTC [id number] on April 24, 2025 1:05:16 PM UTC
--- OUTSIDE RECORDS SUMMARY | 2025-04-30 11:31 | XMS_ITS | Referral Summary ---
Author Organization [employer] ([place], [place], [place], [place]) Address [address] [place] [address] Care Team Providers Care Safe And Vault Service Mechanic Name Role Phone [facility], Provider Not In The System Primary Care [...] ventricular rate of 91 beats per minute, MA interval of 164 ms, and QRS duration [...] Date [place] rded Speak language other than Slovak at home Not on file 07/24/2023 Want [...] on file Medical Devices Implanted Type Area Supervisor Stitching Department Device Identifier Shelf Expiration Date Model / Serial / Lot Mesh St Phasix 7x10cm Rect [id number] - [id number] Implanted:Qty : 1 on 07/21/2022 by Donato Allen MD at [facility] IMPLANTS N/A: Abdomen CR BARD:DAVOL 11/30/2023 [id number] / / [id number] Insurance MEDICARE PART A B Advance Directives For more information, please contact: [phone] Documents on File Type Date Recorded Patient Metal Miner Blasting Expl anation Advance Directives 07/21/2022 * Full Code (Latest Code Status on File) Date Activated Date Inactivated Comments 07/21/2022 6:58 AM 07/24/2022 7:18 PM Care Teams Safe And Vault Service Mechanic Relationship Specialty Start Date End Date [place], Provider Not In The System, [place] [address] PCP - General 07/17/22
--- OUTSIDE RECORDS SUMMARY | 2025-04-30 11:32 | XMS_ITS | Patient Health Record ---
Author Organization [facility] Address [address] [place] [address] Care Team Providers Care Blow Off Worker Name Role Phone Javon Peter Primary Care Provider [phone] JAVON PETER Unavailable Unavaila Jerman Funez Unavailable [phone] Migration, Provider Unavailable Unavailable Allergies No Known [...] date:01/22/2025 06:13:53 PM Interpretation: Performing Lab: Notes/Report: Unable to calculate Urine Microalbumin/Creatinine Ratio due to the less than value for Urine Microalbumin. UCREAT 14 Not Estab. mg/dL Random urine [...] SECONDARY TO AMI M-PHA INR Fingerstick Reviewed date:04/23/2025 02:06:56 PM Interpretation: Performing Lab: Notes/Report: POCINRFS 1.2 0.9-1.1 Results sent to: Javon Peter APRN Pharmacist recommendation for Warfarin therapy is: PATIENT INR 1.2 TODAY VIA FINGERSTICK. PATIENT IS CURRENTLY BRIDGING WITH LOVENOX BID. RECOMMENDED PATIENT TAKE WARFARIN 5 MG DAILY X2 DAYS, THEN RESUME 2.5 MG DAILY THEREAFTER. PATIENT IS CONTINUING WITH LOVENOX UNTIL THERAPEUTIC ON INR. FOR DETAILED INFORMATION-PLEASE REVIEW PROGRESS NOTE IN THE ASSESSMENTS AND ANTICOAGULATION CLINIC SECTION ANTICOAGULATION CLINIC IN PCI/CLINICAL REVIEW INDICATION INR RANGE THERAPY FOR DVT, PE, ATRIAL FIB; 2.0 - 3.0 PROPHYLAXIS FOR VTE THERAPY FOR MECHANICAL HEART 2.5 - 3.5 VALVE; PREVENTION OF SYSTEMIC EMBOLISM SECONDARY TO AMI MAGNESIUM (622) Reviewed date:10/03/2024 12:47:31 PM Interpretation: Performing Lab:CB, [facility] [address] [facility], T[place] KesslerEpxoOP[address] Kuldeep Tejeda Notes/Report: NON-FASTING; NON-FASTING; NON-FASTING; NON-FASTING; NON-FAST MAGNESIUM 2.1 1.5-2.5 mg/dL M-PHA INR Fingerstick Reviewed date:11/08/2024 01:45:31 PM [...] date:10/04/2024 09:11:01 AM Interpretation: Performing Lab: Notes/Report: HEMOGLOBIN A1c (496) Reviewed date:10/04/2024 09:11:01 AM Interpretation: Performing Lab:RADHA [facility] E[address] [employer], EniramDheeFV[address] Kuldeep Tejeda Notes/Report: NON-FASTING; NON-FASTING; NON-FASTING; NON-FASTING; [...] diabetes for children. TSH W/REFLEX TO FT4 (42588) Reviewed date:10/04/2024 09:11:01 AM Interpretation: Performing Lab:RAD[facility] [address] [employer], EniramHkuqYF[address] Kuldeep Tejeda Notes/Report: NON-FASTING; NON-FASTING; NON-FASTING; NON-FASTING; NON-FAST NON-FASTING; NON-FASTING; NON-FASTING; NON-FASTING; NON-FAST TSH W/REFLEX TO FT4 0.08 0.40-4.50 mIU/L T4, FREE 1.1 0.8-1.8 ng/dL M-PHA INR Fingerstick Reviewed date:09/28/2024 01:50:02 PM [...] Reviewed date:10/04/2024 09:11:01 AM Interpretation: Performing Lab:RADHA, [facility] [address] TechnologyteAskYou, EniramFukgUB[address] Kuldeep Tejeda Notes/Report: NON-FASTING; NON-FASTING; NON-FASTING; NON-FASTING; [...] LDL-C. Barrington SS et al. BAL. 2013;310(19): 7231-1968 (http://education.Taskforce.CodeCombat/faq/IEI830) CHOL/HDLC RATIO 2.4 <5.0 (calc) NON HDL CHOLESTEROL 85 <130 mg/dL (calc) For patients with diabetes plus 1 major ASCVD risk factor, treating to a non-HDL-C goal of <100 mg/dL (LDL-C of <70 mg/dL) is considered a therapeutic option. COMPREHENSIVE METABOLIC YOSEF Ford (40225) Reviewed date:10/04/2024 09:11:01 AM Interpretation: Performing Lab:RADHA, [facility], [place] Srex[place] Kuldeep Tejeda Notes/Report: NON-FASTING; NON-FASTING; NON-FASTING; NON-FASTING; [...] 18 10-35 U/L ALT 18 6-29 U/L CBC (INCLUDES DIFF/PLT) (639 9) Reviewed date:10/04/2024 09:11:01 AM Interpretation: Performing Lab:RADHA, [facility] Sdic[address]78 [facility], [facility] HomeMpraSO[address] Kuldeep Tejeda Notes/Report: NON-FASTING; NON-FASTING; NON-FASTING; NON-FASTING; [...] MPV 11.1 7.5-12.5 fL ABSOLUTE NEUTROPHILS 6316 0666-3515 cells/uL ABSOLUTE LYMPHOCYTES 4823 648-2649 cells/uL ABSOLUTE MONOCYTES 539 200-950 cells/uL ABSOLUTE EOSINOPHILS 113 15-500 cells/uL ABSOLUTE BASOPHILS 52 0-200 cells/uL NEUTROPHILS 72.6 LYMPHOCYTES 19.3 MONOCYTES 6.2 EOSINOPHILS 1.3 BASOPHILS 0.6 VITAMIN B12 (927) Reviewed date:09/30/2024 09:48:13 PM Interpretation: Performing Lab:CB, [facility] [address], [facility] HomeHdlmLS[address] Kuldeep Tejeda Notes/Report: NON-FASTING; NON-FASTING; NON-FASTING; NON-FASTING; NON-FAST VITAMIN B12 056 856-5913 pg/mL M-PHA INR Fingerstick Reviewed date:08/31/2024 01:44:35 PM [...] Controlled Diabetic Level M-PHA INR Fingerstick Reviewed date:02/03/2025 09:47:09 PM [...] SECONDARY TO AMI M-PHA INR Fingerstick Reviewed date:03/20/2025 04:51:59 PM Interpretation: Performing Lab: Notes/Report: POCINRFS 3.1 0.9-1.1 Results sent to: Javon Peter APRN Pharmacist recommendation for Warfarin therapy is: PATIENT INR 3.1 TODAY VIA FINGERSTICK. RECOMMENDED PATIENT CONTINUE WITH WARFARIN 2.5 MG DAILY BUT HAVING PATIENT TAKE 1.25 MG DAILY FOR THE NEXT 3 DAYS. PATIENT INDICATED SHE'S HAVE SEVERAL DAYS OF NAUSEA/UPSET STOMACH. FOR DETAILED INFORMATION-PLEASE REVIEW PROGRESS NOTE IN [...] SECONDARY TO AMI Reason For Referral Reason [facility] Hematology, Dr Barbara lora Diagnosis 1 Recurrent deep vein thrombosis (DVT) (I82.409) Referral Organization [facility] Referring Provider First Name Javon Referring Provider Last Name Brittani Referring Provider Speciality Family Pra ctice Referred Organization [facility] Referred Address [address] [facility], [place],[address] Referred Provider Specialty Hematology/O ncology General Notes Hilda Goodman 2024 12:23:07 PM >sent to Dr. Garrido Referral Priority Routine Medications Medication SIG (Take, Route, Frequency, Duration) Notes Start Date End Date Status metFORMIN HCl 500 mg take 2 tabs with breakfast and 1 tab with evening meal twice a day; Duration: 30 days Active Atorvastatin Calcium 40 mg TAKE ONE TABL [...] a day; Duration: 90 days 11/04/2024 Active Lovenox 60 MG/0.6ML 60 mg Injection twic e a day; Duration: 14 days 04/09/2025 Active dilTIAZem HCl ER 180 MG 1 tablet Orally Once a day; Duration: 90 days Active Warfarin Sodium 2.5 mg TAKE ONE TABLET B Y MOUTH ONCE A DAY; Duration: 30 Active Immunizations Vaccine Route Administration Date Status Comme nts Fluzone High Dose Unknown 04/04/2025 Administered Arexvy IM Intramuscular 12/23/2023 Administered Social History Tobacco Use: Social History Observation Description Date Details (start date - stop date) Former Smoker NA - NA Smoking: Question Answer Notes Are you a: former smoker Problems Problem Type SNOMED Code ICD Code Onset Dates Problem Status W/U Status Risk Notes Problem Essential hypertension (96620004) Essential hypertension (I10) Active confirmed Problem Murmur (266925384) Murmur (R01.1) Active confir med Problem Hyperlipidemia (07280633) Other and unspecified hyperlipidemia (E78.5) Active confirmed Problem Hyperthyroidism (65837495) Hyperthyroidism (E05.90) Active confirmed Problem Overactive urinary bladder (disorder) (938649342) OAB (overactive bladder) (N32.81) Active confirmed Problem Use of anticoagulation (172645774) Chronic anticoagulation (Z79.01) Active confirmed Problem Type II diabetes mellitus without complication (003168193) Type 2 diabetes mellitus without complication, without long-term current use of insulin (E11.9) Active confirmed Problem Constipation (65037529) Unspecified constipation (K59.00) Active confirmed Problem Midline cystocele (944316108) Vaginal prolapse (N81.10) Active confirmed Problem Type II diabetes mellitus without complication (561511245) New onset type 2 diabetes mellitus (E11.9) Active confirmed Problem Chronic deep venous thrombosis of right lower extremity (disorder) (070608414440253) Chronic deep vein thrombosis (DVT) of right lower extremity, unspecified vein (I82.501) Active confirmed Problem Venous varices (167374450) Complicated varicose veins (I83.899) Active confirmed Vital Signs Heart Rate 80 /min 04/05/2025 Temperature 94.3 degrees Fahrenheit 04/05/2025 Blood pressure diastolic 70 mm Hg 04/05/2025 Height 64.75 in 04/05/2025 Blood pressure systolic 116 mm Hg 04/05/2025 Weight 140.4 lbs 04/05/2025 BMI 23.54 kg/m2 04/05/2025 Encounters Encounter Location Date Provider Diagnosis [facility] [address] [place] [address] 10/07/2024 Provider Migration [facility] [address] [place] [address] 07/20/2024 Javon Peter Acute non-recurrent maxillary sinusitis J01.00 [facility] [address] [place] [address] 09/28/2024 Javon Peter Type 2 diabetes mellitus without complication, without long-term current use of insulin E11.9 ; Recurrent deep vein thrombosis (DVT) I82.409 ; Hyperthyroidism E05.90 ; Malaise R53.81 and SOB (shortness of breath) R06.02 [facility] [address] [facility] [address] [place] [address] 11/08/2024 Jerman Velez Chronic deep vein thrombosis (DVT) of right lower extremity, unspecified vein I82.501 and Pulmonary embolism, unspecified chronicity, unspecified pulmonary embolism type, unspecified whether acute cor pulmonale present I26.99 [facility] [address] [facility] [place], [place] [address] 01/02/2025 Sarah Florence Medicare annual wellness visit, [...] Essential hypertension I10 and Vaginal prolapse N81.10 [facility] [address] [place], [place] [address] 04/05/2025 [facility] Recurrent deep vein thrombosis (DVT) I82.409 ; Hyperthyroidism E05.90 ; Chronic anticoagulation Z79.01 ; Murmur R01.1 ; Type 2 diabetes mellitus without complication, without long-term current use of insulin E11.9 ; Essential hypertension I10 ; Complicated varicose veins I83.899 and Pain, joint, knee, right M25.561 [facility] [address] [place], [place] [address] 05/15/2024 [facility] [address] [place], [place] [address] 07/13/2024 [facility] History of DVT of lo wer extremity Z86.718 [facility] [address] [facility] [address] [place], [place] [address] 11/04/2024 [facility] [address] [facility] [address] [place], [place] [address] 01/03/2025 [facility] [address] [facility] [address] [place], [place] [address] 01/24/2025 [facility] [address] [facility] [address] [place] [address] 04/09/2025 Javon Craig [facility] [address] [place] [address] 04/10/2025 Javon Craig [facility] [address] [place] [address] 04/17/2025 Javon Peter Assessments Encounter Date Diagnosis (ICD Code) Assessment Notes Treatment Notes Treatment Clinical Notes Section Notes 07/13/2024 History of DVT of lower extremity [...] thrombosis (DVT) (ICD-10 - I82.409) Continue warfarin, [facility] Coumadin clinic for monitoring 11/08/2024 Chronic deep [...] PGM gene, FVL, LA, anti-cardiolipin , and anti-Wtqp1Ibybtr rotein (cannot interpret C, S, or AT def in Pt on warfarin therapy)__but given age, significant thromboses hx as above would be unlikely to oil changer -would reccomend Pt remain on warfarin pre-operatively, [...] thrombosis (DVT) (ICD-10 - I82.409) Continue warfarin, [facility] Coumadin clinic for monitoring 04/05/2025 Hyperthyroidism (ICD-10 - E05.90) continue methimazole 04/05/2025 Recurrent deep vein thrombosis (DVT) (ICD-10 - I82.409) Continue warfarin, [facility] Coumadin clinic for monitoring We discussed that [...] to seek his opinion as well. 04/05/2025 Chronic anticoagulation (ICD-10 - Z79.01) per [facility] Coumadin Clinic 01/02/2025 Hyperthyroidism (ICD-10 - E05.90) continue methimazole 09/28/2024 Hyperthyroidism (ICD-10 - E05.90) continue methimazole 09/28/2024 Malaise (ICD-10 - R53.81) likely due to incontinence, bladder prolapse, nocturia. has FU with PIPEFITTER HELPER to review options 01/02/2025 Dyspepsia (ICD-10 - R10.13) improved with treatment 04/05/2025 Murmur (ICD-10 - R01.1) echo stable in 202304/05/2025 Type 2 diabetes mellitus without complication, without long-term current use of insulin (ICD-10 - E11.9) Goal A1C < 7, will have labs drawn during her consult with Dr Garrido 01/02/2025 Unspecified constipation (ICD-10 - K59.00) stable on current regimen, discussed prevention of constipation postoperatively 09/28/2024 SOB (shortness of breath) (ICD-10 - R06.02) likely multifactoral...w ill need cardiac clearance if she does opt for hysterectomy 01/02/2025 Other and unspecified hyperlipidemia (ICD-10 - E78.5) continue statin therapy, goal LDL < 100 04/05/2025 Essential hypertension (ICD-10 - I10) mild HTN in the past, stable on diltiazem 01/02/2025 Chronic anticoagulation (ICD-10 - Z79.01) INR in goal range today 04/05/2025 Complicated varicose veins (ICD-10 - I83.899) 04/05/2025 Pain, joint, knee, right (ICD-10 - M25.561) She has tolerated surgery and undergone cardiac clearance in the past 6 months. No additional testing recommended at this time. We will get recommendations regarding her Coumadin and bridge with Lovenox per the Coumadin clinic recommendations once a surgery date has been scheduled. 01/02/2025 Murmur (ICD-10 - R01.1) echo stable in 202301/02/2025 OAB (overactive bladder) (ICD-10 - N32.81) following with PIPEFITTER HELPER 01/02/2025 Type 2 diabetes mellitus without complication, [...] Treatment Pending Test Test Name Order Date M-Complete Blood Count Auto Diff 025 M-Comprehensive Metabolic Panel 04/05/20 25 M-Hemoglobin A1C 04/05/2025 M-Free T4 (Free Thyroxine) 04/05/2025 M-Thyroid Stimulating Hormone 04/05/2025 M-Microalb/Creat Ratio, Randm Ur 025 FERRITIN (457) 12/23/2023 Next Appt Details Provider Name:Javon Carrillo ce, 08/09/2025 11:00:00 AM, [address], [place], [address], Insurance Providers Payer Name Payer Address Payer Phone Subscriber Number Group Number Insured Name Patient Relationship to Insured Coverage Start Date Coverage End Date [place] [address] [place] [place] [address] [id number] Kim Soria Self - patient is the insured [employer] [place] [facility] [address] [address] [place] [address] [phone] [id number] Kim Soria Self - patient is the insured [employer] [address] [place] [address] ACL Kim Soria Self - patient is the insured Medical (General) History Medical History History ICD Code Hyperthyroidism HLD DVT/PT on warfarin Degenerative arthritis Heart murmur Rt Knee Arthritis Diabetes Mellitus Surgical History Surgery Date(Month/Year) hernia repair tubal ligation cataract removal total hysterectomy 01/2025 Hospitalization History Reason Date(Month/Year) total hysterectomy-[facility] 01/2025
--- OUTSIDE RECORDS SUMMARY | 2025-04-30 11:32 | XMS_ITS | Data Portability ---
Author Organization [facility] TONY GastonS LEMOYNE CLOSED Address [address] [place] [address] Care Team Providers Care Paper Coating Supervisor Name Role Phone MITCHELL GUILLERMINA Primary Care Provider JAKE LLAMAS General Surgeon Assessment Encounter Date Assessment Date Assessment LastModified by Organization Details LastModified Time 03/27/2022 03/27/2022 71-year-old fema le with a large paraesophageal hernia containing intrathoracic stomach. Symptoms include chest pressure, early satiety, mild dysphasia. She underwent CT scan at [facility] that shows intrathoracic stomach. We will [...] is a reasonable surgical candidate. She is Sabianism and would decline blood transfusion. We would [...] or treatments. Of particular note she is Sabianism and refuses blood transfusion. We discussed that bleeding risk with this operation is quite low however certainly a possibility with any operation. We will have her hold warfarin for at least five days preoperatively. When convenient we will proceed with laparoscopic paraesophageal hernia repair with completion EGD and possible laparoscopic cholecystectomy. This would occur at [facility] after preoperative anesthesia evaluation and [...] [address] [facility] [place] [address] Patien t Name: KIM VIERA RD Patien t : 1949 Patien t 32 Orderi ng Provid er: MONTSE LLAMAS EXAM DATE: 2021 EXAM: RF UGI W AIR CONTRA [facility] INFORM ATION: Hiatus hernia . Shortn ess of breath . TECHNI QUE: A assessment expert view of the abdome n was obtain [...] ment for reflux . FINDIN GS: KUB SYS DIR: Local Truck Driver view shows no abnorm al intest inal [...] on 022 5:01 PM [facility] [address], [phone], 04/10/2022 07:46:14 Result Notes Documentation Provider Name and Address Organization Details Recorded Time Xr, Abdomen + Rf, Upper Gastrointestinal Tract, W/ Air, W/ Contrast Po : [address] [address] Patient Name: KIM DIAZ Patient : 1950 Patient Ordering Provider: JAKE LLAMAS EXAM DATE: 04/09/2022 EXAM: RF UGI W AIR CONTRAST W [facility] INFORMATION: Hiatus hernia. Shortness of breath. TECHNIQUE: A assessment expert view of the abdomen was obtained. Multiple double contrast images of various parts of the esophagus, stomach and duodenum were obtained using gas crystals and high-density barium suspension. This was followed by multiple prone images of the esophagus during swallowing and assessment for reflux. FINDINGS: KUB SYS DIR: Local Truck Driver view shows no abnormal intestinal gas pattern [...] Interpreted By: Leopoldo Robledo MD LLAMAS MD [address] [place] [address], [phone], [facility] 04/10/2022 07:46:14 Problems Name Problem SNOMED Code Status Onset Date Resolution Date Notes Provider Name and Address Organization Details Recorded Time Disorder of thyroid gland 17691607 Active 2021 Cristina Perkins [facility] 2 10:39:49 Diverticulitis 529450689 Active 2021 Cristina Perkins [facility] 2 10:40:03 Dyspnea 355203520 Active 2021 Cristina Maddie [facility] 2 10:43:21 Chest pain 41563675 Active 2021 [place] Maddie [facility] 2 10:43:37 Problem Notes None recorded. Procedures Surgical History Date Name Laterality Status Provider Name and Address Organization Details Recorded Time extraction of cataract completed [facility] 03/27/2022 10:41:59 repair of paraesophageal diaphragmatic hernia completed Demi Rutherford [facility] 08/14/2022 11:29:10 Imaging Results None recorded. Procedure [...] Body mass index (BMI) Body weight Systolic And Diastolic Provider Name and Address Organization Details Last Updated DateTime 08/14/2022 167.64 cm 71 /min 25.9 kg/m2 59176.5 g 126/75 mm[Hg] Demi Rutherford [facility] 08/14/2022 11:27:40 Date Recorded Body height Body mass index (BMI) Body weight Heart rate Systolic And Diastolic Provider Name and Address Organization Details Last Updated DateTime 09/11/2022 167.64 cm 25.7 kg/m2 28076.19 g 74 /min 146/99 mm[Hg] [facility] 09/11/2022 09:30:03 Date Recorded Body weight Body mass index (BMI) Body height Heart rate Systolic And Diastolic Provider Name and Address Organization Details Last Updated DateTime 03/27/2022 55602.02 g 24.9 kg/m2 167.64 cm 69 /min 159/84 mm[Hg] [facility] 03/27/2022 10:33:58 Date Recorded Body height Body mass index (BMI) Body weight Heart rate Systolic And Diastolic Provider Name and Address Organization Details Last Updated DateTime 05/01/2022 167.64 cm 27.4 kg/m2 16754.7 g 71 /min 118/79 mm[Hg] [facility] 05/01/2022 10:02:52 Social History Question Answer Notes LastModified by Organizat ion Details LastModified Time Tobacco Smoking Status Former Smoker Demi Rutherford [facility] 08/14/2022 11:28:55 Have You Recently Traveled Abroad? No [facility] Information not available 03/27/2022 Sex: Unknown Functional Status Question Answer Note LastModified by Organizat ion Details LastModified Time Do you use any illicit or recreational drugs? No Information not available 03/27/2022 What is your level of alcohol consumption? None Information not available 03/27/2022 Mental Status None [...] Diagnosis SNOMED-CT Code Diagnosis ICD10 Code Diagnosis IMO Codes Diagnosis Note [id number] JAKE LLAMAS MD GENERAL SURGERY [place] [address] [place] [phone] 03/27/2022 10:18:32 03/31/2022 15:33:20 Paraesophageal hernia 0594450 K44.9 [id number] JAKE LLAMAS MD SURGERY SCHEDULE [address] [place] [phone] 04/13/2022 09:55:13 04/13/2022 09:56:04 Paraesophageal hernia 8006478 K44.9 [id number] JAKE LLAMAS MD GENERAL SURGERY [facility] [address] [place] [phone] 1 05/01/2022 09:36:22 05/04/2022 12:41:27 Paraesophageal hernia 4966958 K44.9 Chronic cholecystitis 20 651719 K81.1 [id number] JAKE LLAMAS MD GENERAL SURGERY [address] [phone] 08/14/2022 11:16:20 08/16/2022 04:07:55 Paraesophageal hernia 6375596 K44.9 [id number] JAKE LLAMAS MD GENERAL SURGERY [address] [place] [address] 1 09/11/2022 09:23:38 09/12/2022 04:06:26 Paraesophageal hernia 8226686 K44.9 Health Concerns Section Related Observation LastModified by Organization Detai ls LastModified Time None Recorded Concern Status LastModified by Organization Details LastModified Time None Recorded Advance Directives Directive None Recorded Payers Insurance Date Sequence Insurance Name Policy Number Policy Farmer Covered Member ID Farmer Member ID Guarantor Name 09/08/2022 2 [employer] [facility] (MEDICARE SUPPLEMENT) Kim Diaz [id number] Kim Diaz 09/08/2022 1 [place] Kim Diaz [id number] Kim Diaz Notes Date Note Type Note Provider Name and Address Organization Details Recorded Time 03/27/2022 text/html 71-year-old female with long-standing known history of hiatal hernia. She has discomfort and pressure sensation in the upper chest along with some shortness of breath with exertion. She has mild dysphagia. No particular reflux or regurgitation. She has some early satiety. Surgical history includes tubal ligation many years ago. The symptoms prompted a visit to the emergency department at [facility]. She had CT that shows intrathoracic stomach. She takes Coumadin for history of DVT. She is Sabianism and declines blood transfusion. JAKE LLAMAS MD [address] [place] [address], [phone], [facility] 03/27/2022 12:27:31 OBGyn Episode No OBEpisode recorded.
--- OUTSIDE RECORDS SUMMARY | 2025-04-30 11:32 | XMS_ITS | Clinical Summary ---
Author Organization [employer] ([place], [place], [place], [place]) Address [address] [place] [address] Care Team Providers Care Window Shade Cloth Sewer Name Role Phone [facility], Provider Not In The System [...] ventricular rate of 91 beats per minute, PA interval of 164 ms, and QRS duration [...] Date [place] rded Speak language other than Italian at home Not on file 07/24/2023 Want [...] Tobacco Cessation Counseling and Screening (12+) 07/2107/21/2022 Respiratory Syncytial Virus (RSV) Adult or (1 - 1-dose 75+ series) 2024 Falls Risk Screening 07/05/2024 COVID-19 VACCINE ( - 2023- season) 2025 Influenza Vaccine (#1) 2025 04/01/2022 Medical Devices Implanted Type Area Traffic Engineering Technician Device Identifier Shelf Expiration Date Model / Serial / Lot Mesh [employer] Ph[employer]ix 7x10cm Rect [id number] - [id number] Implanted:Qty : 1 on 07/21/2022 by Donato Allen MD at [facility] IMPLANTS N/A: Abdomen CR BARD:DAVOL 11/30/2023 [id number] / / [id number] Insurance [place] [address] [place] [address] Advance Directives For more information, please contact: [phone] Documents on File Type Date Recorded Patient Livestock Trucker Expl anation Advance Directives 07/21/2022 * Full Code (Latest Code Status on File) Date Activated Date Inactivated Comments 07/21/2022 6:58 AM 07/24/2022 7:18 PM Care Teams Window Shade Cloth Sewer Relationship Specialty Start Date End Date [facility], Provider Not In The System, [place] [address] PCP - General 07/17/22
[2025-04-30 11:49] LABS: PHA INR Fingerstick 2.5 (0.9-1.1)
== END 2025-04-30 11:56 ==
LOC: ACC 11:17
PROVIDERS: PCP Nurse Practitioner Family; Visit Provider Nurse Practitioner Family
DX: I26.99 Other pulmonary embolism without acute cor pulmonale (principal); Z79.01 Long term (current) use of anticoagulants; I82.409 Acute embolism and thrombosis of unspecified deep veins of unspecified lower extremity
CPT/HCPCS: 85610; 99211; G0463

== ENCOUNTER 2025-05-21 10:42 | Outpatient (CLI) | payer MEDICARE, OTHER, SELFPAY ==
[2025-05-21 11:12] LABS: PHA INR Fingerstick 2.3 (0.9-1.1)
== END 2025-05-21 11:14 ==
LOC: ACC 10:44
PROVIDERS: PCP Nurse Practitioner Family; Visit Provider Nurse Practitioner Family
DX: I26.99 Other pulmonary embolism without acute cor pulmonale (principal); I82.409 Acute embolism and thrombosis of unspecified deep veins of unspecified lower extremity; Z79.01 Long term (current) use of anticoagulants
CPT/HCPCS: 85610; 99211; G0463

== ENCOUNTER 2025-07-03 10:23 | Outpatient (CLI) | payer MEDICARE, OTHER, SELFPAY ==
--- OUTSIDE RECORDS SUMMARY | 2024-04-20 05:45 | XMS_ITS ---
Author Organization [facility] Address [address] [facility] [address] [facility] [address] [place] [address] Care Team Providers Care Assistant Professor Of German Name Role Phone Svetlana Peter Primary Care Provider SVETLANA PETER Unavailable Unavaila ble REASON FOR VISIT 3 mo follow up Encounters Encounter Location Date Provider Diagnosis [facility] [address] [facility] [address] [place], [place] [address] 04/20/2024 Svetlana Peter Plan Of Treatment Next Appt Details Provider Name:Svetlana flores, 08/09/2025 11:00:00 AM, [address] [facility], [address], [place], [address], Progress Notes * Kim DIAZ IDOB:1949 (75 yo F)Acc No.[id number]:04/20/2024 Progress Notes Patient: Kim Hill I Provider: REBEKAH Vides :1950 A ge:73 Y S ex:Female Date:04/20/2024 Address:[facility] [facility] [address] , [id number] Subjective: * Chief Complaints: * 3 mo follow up * Electronic signature of Whit Peter APRN on 07/03/2025 at 10:48 AM EST Sign off status: Pending * Provider: REBEKAH Vides Date: 1 Generated for Marichuy mcdowell/Logan/Hero on: 1 10:48 AM EST
--- OUTSIDE RECORDS SUMMARY | 2024-10-07 16:30 | XMS_ITS ---
Author Organization [facility] Address [address] [place] [address] Care Team Providers Care Help Desk Specialist Name Role Phone Svetlana Peter Primary Care Provider SVETLANA PETER Unavailable Unavaila ble Migration, Provider Unavailable Unavailable REAS[facility] VISIT [facility] Conversion Encounter Medications Medication SIG (Take, Route, Frequency, Duration) Notes Start Date End Date Status metFORMIN HCl 500 MG Tablet 1 tab(s) orally 2 times a day; Duration: 90 days Active methIMAzole 10 MG Tablet 1 tab(s) orally daily; Duration: 90 days Active Triamcinolone Acetonide 0.1 % Ointment 1 kwadwo applied topically 2 times a day; Duration: 14 days 11/11/2023 Active DILTIAZEM (EQV-CARDIZEM CD) 180 MG/24 HOURS CAPSULE, EXTENDED RELEASE 1 CAP(S) ORALLY ONCE A DAY; Duration: 90 DAYS *Please review for potential replacement for e-prescription and drug interaction check* Active Century - Tablet 1 tab(s) orally once a day Active Warfarin Sodium 2.5 MG Tablet 1 tab(s) orally once a day; Duration: 30 days 07/13/2024 Active Atorvastatin Calcium 40 MG Tablet 1 tab(s) orally once a day; Duration: 30 days Active Tylenol 325 MG Tablet 2 tab(s) orally every 4 hours prn Active Calcium 600 + D 600 MG-20 MCG TABLET 1 TAB(S) ORALLY ONCE A DAY *Please review and pick correct strength-formulatio n [facility] options. If intended option is not shown, discontinue and re-order from Quick Search* Active Encounters Encounter Location Date Provider Diagnosis [facility] [address] [facility] [address] [place] [address] 10/07/2024 Provider Migration Plan Of Treatment Next Appt Details Provider Name:Svetlana Carrillo ce, 08/09/2025 11:00:00 AM, [address] [place] [facility] [address], [address], [place], [address], Progress Notes * Kim DIAZ IDOB:1949 (75 yo F)Acc No.[id number]:10/07/2024 Patient: Kim Hill I Provider: Vinny regalado Migration :1950 A ge:74 Y S ex:Female Date:10/07/2024 Address:[address] [place] [address] , [id number] Pcp:Svetlana Peter Subjective: * Chief Complaints: * M ultum To Medispan Conversion Encounter * Medications: T akingTylenol 325 MG Tablet 2 tab(s) orally every 4 hours , Notes to Pharmacist: prnCalcium 600 + D 600 MG-20 MCG TABLET 1 TAB(S) ORALLY ONCE A DAY , Notes to Pharmacist: *Please review and pick correct strength-formulation from [facility] options. If intended option is not shown, discontinue and re-order from Quick Search*Century - Tablet 1 tab(s) orally once a day Triamcinolone Acetonide 0.1 % Ointment 1 kwadwo applied topically 2 times a day DILTIAZEM (EQV-CARDIZEM CD) 180 MG/24 HOURS CAPSULE, EXTENDED RELEASE 1 CAP(S) ORALLY ONCE A DAY , Notes to Pharmacist: *Please review for potential replacement for e-prescription and drug interaction check*metFORMIN HCl 500 MG Tablet 1 tab(s) orally 2 times a day methIMAzole 10 MG Tablet 1 tab(s) orally daily Warfarin Sodium 2.5 MG Tablet 1 tab(s) orally once a day Atorvastatin Calcium 40 MG Tablet 1 tab(s) orally once a day Taking Tylenol 325 MG Tablet 2 tab(s) orally every 4 hours , Notes to Pharmacist: prnTaking Calcium 600 + D 600 MG-20 MCG TABLET 1 TAB(S) ORALLY ONCE A DAY , Notes to Pharmacist: *Please review and pick correct strength-formulation from [facility] options. If intended option is not shown, discontinue and re-order from Quick Search*Taking Century - Tablet 1 tab(s) orally once a day Taking Triamcinolone Acetonide 0.1 % Ointment 1 kwadwo applied topically 2 times a day Taking DILTIAZEM (EQV-CARDIZEM CD) 180 MG/24 HOURS CAPSULE, EXTENDED RELEASE 1 CAP(S) ORALLY ONCE A DAY , Notes to Pharmacist: *Please review for potential replacement for e-prescription and drug interaction check*Taking metFORMIN HCl 500 MG Tablet 1 tab(s) orally 2 times a day Taking methIMAzole 10 MG Tablet 1 tab(s) orally daily Taking Warfarin Sodium 2.5 MG Tablet 1 tab(s) orally once a day Taking Atorvastatin Calcium 40 MG Tablet 1 tab(s) orally once a day * Electronic signature of Castro sutton Migration on 07/03/2025 at 10:48 AM EST Sign off status: Pending * Provider: Vinny regalado Migration Date: 0 10/07/2024 Generated for Marichuy mcdowell/Logan/Hero on: 1 10:48 AM EST
--- OUTSIDE RECORDS SUMMARY | 2025-01-11 06:00 | XMS_ITS ---
Author Organization [facility] Address [address] [facility] [address] [facility] [address] [place] [address] Care Team Providers Care Human Services Professional Name Role Phone Svetlana Peter Primary Care Provider SVETLANA PETER Unavailable Unavaila ble REASON FOR VISIT 4 Month F/U Encounters Encounter Location Date Provider Diagnosis [facility] [address] [facility] [address] [place] [address] 01/11/2025 Svetlana Peter Plan Of Treatment Next Appt Details Provider Name:Svetlana Carrillo ce, 08/09/2025 11:00:00 AM, [address] [facility], [address], [place], [address], History and Physical Notes * HPI (History of Present Illness) Category Sub-Category Detail Notes Category Not es gen Pt presenting today and wishes to discuss options for AC 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 * Electronic signature of Whit Peter APRN on 07/03/2025 at 10:48 AM EST Sign off status: Pending * Provider: REBEKAH Vides Date: 0 01/11/2025 Generated for Marichuy mcdowell/Logan/Hero on: 1 10:48 AM EST
--- OUTSIDE RECORDS SUMMARY | 2025-07-03 10:48 | XMS_ITS | Patient Health Record ---
Author Organization [facility] Address [address] [place] [address] Care Team Providers Care Manager Clinical Applications Name Role Phone Javon Peter Primary Care Provider JAVON PETER Unavailable Unavaila Jerman Funez Unavailable [phone] Migration, Provider Unavailable Unavailable Allergies No Known Allergies Results Component Value Reference Range Flag Notes LIPID PANEL, STANDARD (7600) Reviewed date:10/04/2024 09:11:01 AM Interpretation: Performing Lab:[facility], [facility] Rxyi5810 [facility], [place] HansonYsoyEF[address] Kuldeep Tejeda Notes/Report: NON-FASTING; NON-FASTING; NON-FASTING; NON-FASTING; NON-FAST CHOLESTEROL, TOTAL 145 <200 mg/dL N HDL CHOLESTEROL 60 > OR = 50 mg/dL N TRIGLYCERIDES 187 <150 mg/dL H LDL-CHOLESTEROL 59 N Reference range: <100 Desirable range <100 mg/dL for primary prevention; <70 mg/dL for patients with CHD or diabetic patients with > or = 2 CHD risk factors. LDL-C is now calculated using the Chiquita calculation, which is a validated novel method providing better accuracy than the Friedewald equation in the estimation of LDL-C. Barrington QURESHI et al. BAL. 2013;310(19): 7227-2248 ([email or web address]) CHOL/HDLC RATIO 2.4 <5.0 (calc) N NON HDL CHOLESTEROL 85 <130 mg/dL (calc) N For patients with diabetes plus 1 major ASCVD risk factor, treating to a non-HDL-C goal of <100 mg/dL (LDL-C of <70 mg/dL) is considered a therapeutic option. COMPREHENSIVE METABOLIC YOSEF Ford (32117) Reviewed date:10/04/2024 09:11:01 AM Interpretation: Performing Lab:[facility] Hchw1088 [place] [facility], [facility] CenterGyuyBA[address] Kuldeep Tejeda Notes/Report: NON-FASTING; NON-FASTING; NON-FASTING; NON-FASTING; NON-FAST GLUCOSE 135 65-99 mg/dL H Fasting reference interval For someone without known diabetes, a glucose value >125 mg/dL indicates that they may have diabetes and this should be confirmed with a follow-up test. UREA NITROGEN (BUN) 16 7-25 mg/dL N CREATININE 0.70 0.60-1.00 mg/dL N EGFR 90 > OR = 60 mL/min/1.73m2 N BUN/CREATININE RATIO SEE NOTE: 6-22 (calc) Not Reported: BUN and Creatinine are within reference range. SODIUM 140 135-146 mmol/L N POTASSIUM 4.4 3.5-5.3 mmol/L N CHLORIDE 101 98-110 mmol/L N CARBON DIOXIDE 29 20-32 mmol/L N CALCIUM 10.4 8.6-10.4 mg/dL N PROTEIN, TOTAL 6.8 6.1-8.1 g/dL N ALBUMIN 4.5 3.6-5.1 g/dL N GLOBULIN 2.3 1.9-3.7 g/dL (calc) N ALBUMIN/GLOBULIN RATIO 2.0 1.0-2.5 (calc) N BILIRUBIN, TOTAL 0.6 0.2-1.2 mg/dL N ALKALINE PHOSPHATASE 122 37-153 U/L N AST 18 10-35 U/L N ALT 18 6-29 U/L N MAGNESIUM (622) Reviewed date:10/03/2024 12:47:31 PM Interpretation: Performing Lab:[facility] Isvx9531 [place] [facility], [facility] HospitalNrynES[address] Kuldeep Tejeda Notes/Report: NON-FASTING; NON-FASTING; NON-FASTING; NON-FASTING; NON-FAST MAGNESIUM 2.1 1.5-2.5 mg/dL N CBC (INCLUDES DIFF/PLT) (639 9) Reviewed date:10/04/2024 09:11:01 AM Interpretation: Performing Lab:RAD[facility] burrp!-[place] [id number] [place] [employer], [facility] CenterFkhzZE[address] Kuldeep Tejeda Notes/Report: NON-FASTING; NON-FASTING; NON-FASTING; NON-FASTING; NON-FAST WHITE BLOOD CELL COUNT 8.7 3.8-10.8 Thousand/uL N RED BLOOD CELL COUNT 5.32 3.80-5.10 Million/uL H HEMOGLOBIN 15.7 11.7-15.5 g/dL H HEMATOCRIT 48.5 35.0-45.0 % H MCV 91.2 80.0-100.0 fL N MCH 29.5 27.0-33.0 pg N MCHC 32.4 32.0-36.0 g/dL N For adults, a slight decrease in the calculated MCHC value (in the range of 30 to 32 g/dL) is most likely not clinically significant; however, it should be interpreted with caution in correlation with other red cell parameters and the patient's clinical condition. RDW 11.8 11.0-15.0 % N PLATELET COUNT 301 140-400 Thousand/uL N MPV 11.1 7.5-12.5 fL N ABSOLUTE NEUTROPHILS 6316 7249-4880 cells/uL N ABSOLUTE LYMPHOCYTES 7377 625-8563 cells/uL N ABSOLUTE MONOCYTES 539 200-950 cells/uL N ABSOLUTE EOSINOPHILS 113 15-500 cells/uL N ABSOLUTE BASOPHILS 52 0-200 cells/uL N NEUTROPHILS 72.6 N LYMPHOCYTES 19.3 N MONOCYTES 6.2 N EOSINOPHILS 1.3 N BASOPHILS 0.6 N HEMOGLOBIN A1c (496) Reviewed date:10/04/2024 09:11:01 AM Interpretation: Performing Lab:[facility] Jjry6175 [place] [facility], [facility] CenterHwhdZN[address] Kuldeep Tejeda Notes/Report: NON-FASTING; NON-FASTING; NON-FASTING; NON-FASTING; NON-FAST HEMOGLOBIN A1c 7.2 <5.7 % of total Hgb H For someone without known diabetes, a hemoglobin [...] (927) Reviewed date:09/30/2024 09:48:13 PM Interpretation: Performing Lab:[facility], [facility] [address], [place] KesslerPoruZS[address] Kuldeep Tejeda Notes/Report: NON-FASTING; NON-FASTING; NON-FASTING; NON-FASTING; NON-FAST VITAMIN B12 307 662-7915 pg/mL N TSH W/REFLEX TO FT4 (28183) Reviewed date:10/04/2024 09:11:01 AM Interpretation: Performing Lab:[facility], [facility] [address], [place] QtfjOY[address] Kuldeep Tejeda Notes/Report: NON-FASTING; NON-FASTING; NON-FASTING; NON-FASTING; NON-FAST NON-FASTING; NON-FASTING; NON-FASTING; NON-FASTING; NON-FAST TSH W/REFLEX TO FT4 0.08 0.40-4.50 mIU/L L T4, FREE 1.1 0.8-1.8 ng/dL N X ray : Chest Reviewed date:10/04/2024 09:11:01 AM Interpretation: Performing Lab: Notes/Report: M-Hemoglobin A1C Reviewed date:01/24/2025 03:27:30 PM Interpretation: Performing Lab: Notes/Report: HGBA1C 8.3 4.0-6.0 % H < 6% Non-Diabetic Level < 7% Controlled Diabetic Level > 8% Poorly Controlled Diabetic Level M-PHA INR Fingerstick Reviewed date:08/31/2024 01:44:35 PM Interpretation: Performing Lab: Notes/Report: POCINRFS 1.5 0.9-1.1 H Results sent to: Javon Peter APRN Pharmacist [...] Interpretation: Performing Lab: Notes/Report: POCINRFS 2.3 0.9-1.1 H THERAPY FOR DVT, PE, ATRIAL FIB; 2.0 - 3.0 Results sent to: Javon Peter APRN Pharmacist recommendation for Warfarin therapy is: PATIENT INR 2.3 TODAY VIA FINGERSTICK. RECOMMENDED PATIENT CONTINUE WITH WARFARIN 2.5 MG DAILY. FOR DETAILED INFORMATION-PLEASE REVIEW PROGRESS NOTE IN THE ASSESSMENTS AND ANTICOAGULATION CLINIC SECTION ANTICOAGULATION CLINIC IN PCI/CLINICAL REVIEW INDICATION INR RANGE PROPHYLAXIS FOR VTE THERAPY FOR MECHANICAL HEART 2.5 - 3.5 VALVE; PREVENTION OF SYSTEMIC EMBOLISM SECONDARY TO AMI M-PHA INR Fingerstick Reviewed date:11/08/2024 01:45:31 PM Interpretation: Performing Lab: Notes/Report: POCINRFS 2.2 0.9-1.1 H Results sent to: Javon Peter APRN Pharmacist [...] SECONDARY TO AMI M-PHA INR Fingerstick Reviewed date:01/22/2025 06:15:19 PM Interpretation: Performing Lab: Notes/Report: POCINRFS 2.2 0.9-1.1 H Results sent to: Javon Peter APRN Pharmacist [...] Urine Microalbumin. UCREAT 14 Not Estab. mg/dL N Random urine reference range not established. 24 hour urine samples recommended. MICROALB < 6.000 0-16.7 mg/L N M-PHA INR Fingerstick Reviewed date:01/22/2025 06:09:52 PM Interpretation: Performing Lab: Notes/Report: POCINRFS 2.0 0.9-1.1 H Results sent to: Javon Peter APRN Pharmacist [...] Interpretation: Performing Lab: Notes/Report: POCINRFS 2.1 0.9-1.1 H FOR DETAILED INFORMATION-PLEASE REVIEW PROGRESS NOTE IN THE ASSESSMENTS AND ANTICOAGULATION CLINIC SECTION ANTICOAGULATION CLINIC IN PCI/CLINICAL REVIEW INDICATION INR RANGE THERAPY FOR DVT, PE, ATRIAL FIB; 2.0 - 3.0 PROPHYLAXIS FOR VTE THERAPY FOR MECHANICAL HEART 2.5 - 3.5 VALVE; PREVENTION OF SYSTEMIC EMBOLISM SECONDARY TO AMI Results sent to: Javon Peter APRN Pharmacist recommendation for Warfarin therapy is: INR TODAY VIA FINGERSTICK IS 2.1. RECOMMEND PATIENT CONTINUE WEEKLY WARFARIN DOSE AT 2.5MG DAILY. PATIENT WILL F/U IN 6 WEEKS. M-PHA INR Fingerstick Reviewed date:03/20/2025 04:51:59 PM Interpretation: Performing Lab: Notes/Report: POCINRFS 3.1 0.9-1.1 H Results sent to: Javon Peter APRN Pharmacist [...] Interpretation: Performing Lab: Notes/Report: POCINRFS 1.2 0.9-1.1 H Results sent to: Javon Peter APRN Pharmacist [...] SECONDARY TO AMI M-PHA INR Fingerstick Reviewed date:04/30/2025 01:28:29 PM Interpretation: Performing Lab: Notes/Report: POCINRFS 2.5 0.9-1.1 H Results sent to: Javon Peter APRN Pharmacist recommendation for Warfarin therapy is: PATIENT INR 2.5 TODAY VIA FINGERSTICK. RECOMMENDED PATIENT CONTINUE WITH [...] SECONDARY TO AMI M-PHA INR Fingerstick Reviewed date:05/21/2025 05:21:22 PM Interpretation: Performing Lab: Notes/Report: POCINRFS 2.3 0.9-1.1 H Results sent to: Javon Peter APRN Pharmacist [...] TO AMI Reason For Referral Reason [facility] HematologyDr Barbara Diagnosis 1 Recurrent deep vein thrombosis (DVT) (I82.409) Referral Organization [facility] Referring Provider First Name Javon Referring Provider Last Name Brittani Referring Provider Speciality [facility] Referred Organization [facility] Referred Address [address],[address], Referred Provider Specialty Hematology/O ncology General Notes Hilda Goodman 2024 12:23:07 PM >sent to Dr. Garrido Referral Priority Routine Medications Medication SIG (Take, Route, Frequency, Duration) Notes Start Date End Date Status metFORMIN HCl 500 mg Tablet take 2 tabs with breakfast and 1 tab with evening meal twice a day; Duration: 30 days Active Atorvastatin Calcium 40 mg Tablet TAKE ONE TABLET BY MOUTH ONCE A DAY; Duration: 30 Active dilTIAZem HCl ER Coated Beads 180 mg Capsule Extended Release 24 Hour TAKE 1 CAPSULE BY MOUTH ONCE A DAY; Duration: 90 Active Century - Tablet 1 tab(s) orally once a day Active Calcium 600 + D 600 MG-20 MCG TABLET 1 TAB(S) ORALLY ONCE A DAY Active methIMAzole 10 mg Tablet TAKE ONE TABLET BY MOUTH ONCE A DAY; Duration: 30 Active Famotidine 40 MG Tablet 1 tablet Orally Once a day; Duration: 90 days 11/04/2024 Active Lovenox 60 MG/0.6ML Solution Prefilled Syringe 60 mg Injection twice a day; Duration: 14 days 04/09/2025 Active Warfarin Sodium 2.5 mg Tablet TAKE ONE TABLET BY MOUTH ONCE A DAY; Duration: 30 Active Immunizations Vaccine Route Administration Date Status Commdeni cruz Arexvy IM Intramuscular 12/23/2023 Administered Fluzone High Dose Unknown 04/04/2025 Administered Social History Tobacco Use: Social History Observation Description Date Details (start date - stop date) Former Smoker NA - NA Social History Social History Social Info Question Answer Notes Smoking: Are you a: former smoker Additional Details Category Social Info Options Details Social History Travel outside [place]: no Alcohol: socially Sexually active: no Recreational drug use: no Exercise: no Home smoke detector use: yes Caffeine: yes frequency: daily Living Will Yes Patient is a Jeh ovah's Witness. She wishes to not receive any blood transfusions. Problems Problem Type SNOMED Code ICD Code Onset Dates Problem Status W/U Status Risk Notes Problem Essential hypertension (97709476) Essential hypertension (I10) Active confirmed Problem Murmur (150318703) Murmur (R01.1) Active confir med Problem Hyperlipidemia (23540600) Other and unspecified hyperlipidemia (E78.5) Active confirmed Problem Hyperthyroidism (43914883) Hyperthyroidism (E05.90) Active confirmed Problem Overactive urinary bladder (disorder) (462512561) OAB (overactive bladder) (N32.81) Active confirmed Problem Use of anticoagulation (671144945) Chronic anticoagulation (Z79.01) Active confirmed Problem Type II diabetes mellitus without complication (684051610) Type 2 diabetes mellitus without complication, without long-term current use of insulin (E11.9) Active confirmed Problem Constipation (01931556) Unspecified constipation (K59.00) Active confirmed Problem Midline cystocele (868984240) Vaginal prolapse (N81.10) Active confirmed Problem Type II diabetes mellitus without complication (116088894) New onset type 2 diabetes mellitus (E11.9) Active confirmed Problem Chronic deep venous thrombosis of right lower extremity (disorder) (060122907161984) Chronic deep vein thrombosis (DVT) of right lower extremity, unspecified vein (I82.501) Active confirmed Problem Venous varices (725534179) Complicated varicose veins (I83.899) Active confirmed Vital Signs Heart Rate 80 /min 04/05/2025 Temperature 94.3 degrees Fahrenheit 04/05/2025 Blood pressure diastolic 70 mm Hg 04/05/2025 Height 64.75 in 04/05/2025 Blood pressure systolic 116 mm Hg 04/05/2025 Weight 140.4 lbs 04/05/2025 BMI 23.54 kg/m2 04/05/2025 Encounters Encounter Location Date Provider Diagnosis [facility] [address] [place] [address] 10/07/2024 Provider Migration [facility] [address] [place], [place] [address] 07/20/2024 [facility] Acute non-recurrent maxillary sinusitis J01.00 [facility] [address] [place], [place] [address] 09/28/2024 [facility] Type 2 diabetes mellitus without complication, without long-term current use of insulin E11.9 ; Recurrent deep vein thrombosis (DVT) I82.409 ; Hyperthyroidism E05.90 ; Malaise R53.81 and SOB (shortness of breath) R06.02 [facility] [address] [place], [place] [address] 11/08/2024 Jerman Velez Chronic deep vein thrombosis (DVT) of right lower extremity, unspecified vein I82.501 and Pulmonary embolism, unspecified chronicity, unspecified pulmonary embolism type, unspecified whether acute cor pulmonale present I26.99 [facility] [address] [place], [place] [address] 01/02/2025 Sarah Florence Medicare annual wellness visit, [...] Essential hypertension I10 and Vaginal prolapse N81.10 [facility] [address] [place], [place] [address] 04/05/2025 [facility] Recurrent deep vein thrombosis (DVT) I82.409 ; Hyperthyroidism E05.90 ; Chronic anticoagulation Z79.01 ; Murmur R01.1 ; Type 2 diabetes mellitus without complication, without long-term current use of insulin E11.9 ; Essential hypertension I10 ; Complicated varicose veins I83.899 and Pain, joint, knee, right M25.561 [facility] [address] [facility] [address] [place], [place] [address] 07/13/2024 [facility] History of DVT of lo wer extremity Z86.718 [facility] [address] [facility] [address] [place], [place] [address] 11/04/2024 [facility] [address] [facility] [address] [place], [place] [address] 01/03/2025 [facility] [address] [facility] [address] [place], [place] [address] [facility] [address] [facility] [address] [place] [address] 04/09/2025 [facility] [address] [facility] [address] [place], [place] [address] 04/10/2025 [facility] [address] [facility] [address] [place], [place] [address] 04/17/2025 [facility] Assessments Encounter Date Diagnosis (ICD Code) [...] (DVT) (ICD-10 - I82.409) Continue warfarin, [facility] Coumadin clinic for monitoring 11/08/2024 [...] PGM gene, FVL, LA, anti-cardiolipin , and anti-Xyqb5Liiczi rotein (cannot interpret C, S, or AT def in Pt on warfarin therapy)__but given age, significant thromboses hx as above would be unlikely to change analyst -would reccomend Pt remain on warfarin pre-operatively, [...] (DVT) (ICD-10 - I82.409) Continue warfarin, [facility] Coumadin clinic for monitoring 04/05/2025 Hyperthyroidism (ICD-10 - E05.90) continue methimazole 04/05/2025 Recurrent deep vein thrombosis (DVT) (ICD-10 - I82.409) Continue warfarin, [facility] Coumadin clinic for monitoring We discussed [...] Chronic anticoagulation (ICD-10 - Z79.01) per [facility] Coumadin Clinic 01/02/2025 Hyperthyroidism (ICD-10 - E05.90) continue methimazole 09/28/2024 Hyperthyroidism (ICD-10 - E05.90) continue methimazole 09/28/2024 Malaise (ICD-10 - R53.81) likely due to incontinence, bladder prolapse, nocturia. has FU with [employer] SALES EXECUTIVE to review options 01/02/2025 Dyspepsia (ICD-10 - [...] (overactive bladder) (ICD-10 - N32.81) following with [employer] EXECUTIVE 01/02/2025 Type 2 diabetes mellitus without complication, [...] [address], [place], [address], Insurance Providers Payer Name Payer Address Payer Phone Subscriber Number Group Number Insured Name Patient Relationship to Insured Coverage Start Date Coverage End Date [place] [address] [place] [phone] [id number] Kim Soria Self - patient is the insured [employer] [place] [facility] [address] [address] [place] [address] [phone] [id number] Kim Soria Self - patient is the insured [employer] [address] [place] [address] [address] [place] [address] ACL Kim Soria Self - patient is the insured Medical (General) History Medical History History ICD Code Hyperthyroidism HLD DVT/PT on warfarin Degenerative arthritis Heart murmur Rt Knee Arthritis Diabetes Mellitus Surgical History Surgery Date(Month/Year) hernia repair tubal ligation cataract removal total hysterectomy 01/2025 Hospitalization History Reason Date(Month/Year) total hysterectomy-[facility] 01/2025
--- OUTSIDE RECORDS SUMMARY | 2025-07-03 10:48 | XMS_ITS | Referral Summary ---
Author Organization [employer] ([place], [place], [place], [place], [place]) Address [address] [place] [address] Care Team Providers Care Pin Chaser Name Role Phone [facility], Provider Not In The System MD Primary Care Provider Unavailable Allergies No known [...] ventricular rate of 91 beats per minute, CT interval of 164 ms, and QRS duration [...] Date [place] rded Speak language other than Thai at home Not on file 07/24/2023 Want [...] on file Medical Devices Implanted Type Area Noodle Catalyst Maker Device Identifier Shelf Expiration Date Model / Serial / Lot Mesh St Phasix 7x10cm Rect [id number] - [id number] Implanted:Qty : 1 on 07/21/2022 by Donato Allen MD at [facility] IMPLANTS N/A: Abdomen CR BARD:DAVOL 11/30/2023 [id number] / / [id number] Insurance MEDICARE PART A B Advance Directives For more information, please contact: [phone] Documents on File Type Date Recorded Patient Supplier Diversity Director Expl anation Advance Directives 07/21/2022 * Full Code (Latest Code Status on File) Date Activated Date Inactivated Comments 07/21/2022 6:58 AM 07/24/2022 7:18 PM Care Teams Pin Chaser Relationship Specialty Start Date End Date Citl[place], Provider Not In The System, [place] [address] PCP - General 07/17/22
--- OUTSIDE RECORDS SUMMARY | 2025-07-03 10:49 | XMS_ITS | Clinical Summary ---
Author Organization [employer] ([place], [place], [place], [place], [place]) Address [address] [place] [address] Care Team Providers Care Fudge Candy Maker Name Role Phone [facility], Provider Not In The System MD [...] ventricular rate of 91 beats per minute, ME interval of 164 ms, and QRS duration [...] Last Done Comments Medicare Initial AWV G0438 DXA SCAN 1949 Depression Screening (12+) 1961 Hepatitis C Screening 1967 Pneumococcal 50+ years (1 of 2 - PCV) 1968 Shingles Vaccine (Zoster) (1 of 2) 1999 DTAP/TDAP/TD VACCINES (2 - Td or Tdap) 09/08/2006 Tobacco Cessation Counseling and Screening (12+) 07/2107/21/2022 Respiratory Syncytial Virus (RSV) Adult or (1 - 1-dose 75+ series) 2024 Falls Risk Screening 07/05/2024 COVID-19 VACCINE ( - season) 2025 Influenza Vaccine (#1) 2025 04/01/2022 Medical Devices Implanted Type Area Transmission Engineer Device Identifier Shelf Expiration Date Model / Serial / Lot Mesh St Phasix 7x10cm Rect [id number] - [id number] Implanted:Qty : 1 on 07/21/2022 by Donato Allen MD at [facility] IMPLANTS N/A: Abdomen CR BARD:DAVOL 11/30/2023 [id number] / / [id number] Insurance MEDICARE PART A B Advance Directives For more information, please contact: [phone] Documents on File Type Date Recorded Patient Senior Systems Software Engineer Expl anation Advance Directives 07/21/2022 * Full Code (Latest Code Status on File) Date Activated Date Inactivated Comments 07/21/2022 6:58 AM 07/24/2022 7:18 PM Care Teams Fudge Candy Maker Relationship Specialty Start Date End Date August, Provider Not In The System, [place] [address] PCP - General 07/17/22
--- OUTSIDE RECORDS SUMMARY | 2025-07-03 10:49 | XMS_ITS | Clinical Summary ---
Author Organization [facility] Address [address] [place] [id number] Care Team Providers Care Associate Dean Name Role Phone Dixon Chapman MD Primary Care Provider [phone] Allergies No known active allergies Medications ferrous [...] ventricular rate of 91 beats per minute, AL interval of 164 ms, and QRS duration [...] 1949 TDAP/TD VACCINES (1 - Tdap) 1968 Pneumococcal Vaccine 50+ (1 of 1 - PCV) 1999 ZOSTER VACCINE (1 of 2) 1999 RSV Vaccine - Adults (1 - 1-dose 75+ series) INFLUENZA VACCINE 02/02/2025 COVID-19 Vaccine (1 - 2023- season) 2025 Insurance [facility] MEDICARE A & B Care Teams Associate Dean Relationship Specialty Start Date End Date Dixon Chapman MD [address] [facility] [place] [address] PCP - General Family Medicine 01/22/16
[2025-07-03 14:12] LABS: PHA INR Fingerstick 2.3 (0.9-1.1)
== END 2025-07-03 14:13 ==
LOC: ACC 10:24
PROVIDERS: PCP Nurse Practitioner Family; Visit Provider Nurse Practitioner Family
DX: I26.99 Other pulmonary embolism without acute cor pulmonale (principal); I82.409 Acute embolism and thrombosis of unspecified deep veins of unspecified lower extremity; Z79.01 Long term (current) use of anticoagulants
CPT/HCPCS: 85610; 99211; G0463